=== PATIENT | female | born 1990 | race Caucasian/White ===

== ENCOUNTER → 2020-02-07 | Outpatient (CLI) | payer BC, SELFPAY ==
[2020-02-07 15:35] VITALS: BMI 23.9
[2020-02-07 17:26] LABS: Amphetamine Urine VISTA NEGATIVE (<1000 ng/mL); Barbiturate Urine VISTA NEGATIVE (< 200 ng/mL); Benzodiazepine Urine VISTA NEGATIVE (< 200 ng/mL); Cocaine Urine VISTA NEGATIVE (< 300 ng/mL); Ecstacy Urine VISTA NEGATIVE (< 500 ng/mL); Methadone Urine VISTA NEGATIVE (< 300 ng/mL); PCP Urine VISTA NEGATIVE (< 25 ng/mL); THC Urine VISTA NEGATIVE (< 50 ng/mL); Vista UDS pH Range 6
== END | disposition home or self-care (01) ==
LOC: LABSPEC 16:32
PROVIDERS: PCP Nurse Practitioner Family; Referring Provider Obstetrics & Gynecology; Visit Provider Obstetrics & Gynecology
DX: Z34.90 Encounter for supervision of normal pregnancy, unspecified, unspecified trimester (principal)
CPT/HCPCS: 80307; 87086; 87088

== ENCOUNTER → 2020-05-20 08:49 | Outpatient (CLI) | payer BC, SELFPAY ==
[2020-04-22 14:36] VITALS: BMI 29.7
[2020-05-20 09:24] LABS: Absolute Lymphocyte Count 1.94 X10^3/uL (0.83-4.51); Absolute Neutrophil Count 8.6 X10^3/uL (2.0-7.7); Basophil# 0.05 X10^3/uL; Basophil% 0.4 % (0-1); Eosinophil# 0.05 X10^3/uL; Eosinophils% 0.4 % (0-5); Hematocrit 39.9 % (37-47); Hemoglobin 13.1 g/dL (12.0-15.0); Lymphocyte # 1.94 X10^3/ul (4.0); Lymphocyte % 17.1 % (19-41); Mean Corp Hgb Conc 32.8 g/dL (32-36); Mean Corpuscular Hgb 31.2 pg (27.0-32.0); Mean Platelet Vol. 10.4 fl (6.2-12.0); Monocyte# 0.61 X10^3/uL; Monocyte% 5.4 % (0-10); NRBC Flagged by Analyzer 0 % (0-5); Neutrophil # 8.59 X10^3/uL (2.7-7.7); Neutrophil % 75.8 % (47-70); Platelet Count 209 K/mm3 (150-450); RBC Distribution Width CV 14.8 % (11.6-14.6); RBC Distribution Width SD 51.5 fl (35.1-43.9); White Blood Count 11.3 K/mm3 (4.4-11.0)
[2020-05-20 09:33] LABS: Glucose Challenge Gest 1H 50g 148 mg/dL (70-140)
[2020-05-20 09:55] LABS: Rubella IgG Reactive (Nonreactive)
== END ==
PROVIDERS: PCP Nurse Practitioner Family; Referring Provider Obstetrics & Gynecology; Visit Provider Obstetrics & Gynecology
DX: Z01.84 Encounter for antibody response examination (principal); O09.90 Supervision of high risk pregnancy, unspecified, unspecified trimester; Z3A.00 Weeks of gestation of pregnancy not specified
CPT/HCPCS: 36415; 82950; 85025; 86762

== ENCOUNTER → 2020-06-03 09:23 | Outpatient (CLI) | payer BC, SELFPAY ==
[2020-05-20 09:12] VITALS: BMI 30.8
[2020-06-03 08:57] VITALS: BMI 31.5
[2020-06-03 10:18] LABS: Glucose GTT-Gestation. Fasting 75 mg/dL (<105)
[2020-06-03 11:22] LABS: Glucose GTT-Gestational 1 Hr 172 mg/dL (<190)
[2020-06-03 12:02] LABS: Glucose GTT-Gestational 2 Hr 180 mg/dL (<165)
[2020-06-03 14:01] LABS: Glucose GTT-Gestational 3 Hr 146 L (<145)
== END ==
PROVIDERS: PCP Nurse Practitioner Family; Visit Provider Obstetrics & Gynecology
DX: O99.810 Abnormal glucose complicating pregnancy (principal); Z3A.00 Weeks of gestation of pregnancy not specified
CPT/HCPCS: 36415; 82951; 82952

== ENCOUNTER → 2020-06-17 12:11 | Outpatient (CLI) | payer BC, SELFPAY ==
[2020-06-03 08:57] VITALS: BMI 31.5
[2020-06-17 11:45] VITALS: BMI 31.9
--- NOTE | 2020-06-17 12:15 | US_ITS ---
STUDY: SECOND AND THIRD TRIMESTER OBSTETRICAL ULTRASOUND - LIMITED REASON FOR EXAM: Female, 30 years old GROWTH, DI-DI TWINS. GESTATIONAL DIABETES. Baby A PRIOR ULTRASOUND: None. TECHNIQUE: Transabdominal TECHNICAL QUALITY: Adequate. FINDINGS: The fetus is in a cephalic presentation. There is demonstrated cardiac activity with a heart rate of 129 bpm. There is a normal amniotic fluid volume. The largest amniotic fluid pocket measures 5.6 cm. The amniotic fluid index (SAJAN) is 12.9 cm. The placenta is anterior in location and is not low lying. There are Grade 1 placental changes. The cervix measures 3. cm in length. BIOMETRY: BPD: 7.61 cm: 30 weeks, 3 days HC: 29.93 cm: 33 weeks, 1 days AC: 26.2 cm: 30 weeks, 2 days FL: 6 cm: 31 weeks, 1 days Age by LMP: 32 weeks, 0 days. FORTINO by LMP: 08/12/2020. age by current US: 31 weeks, 6 days. FORTINO by current US: 08/13/2020. Estimated weight: 1638 grams, +/- 246 grams, 11.2 percentile. IMPRESSION: Baby A with a mean gestational age of 31 weeks and 6 days. Electronically Signed: Markel Pickard MD at 9:57 EST , Service support , STUDY: SECOND AND THIRD TRIMESTER OBSTETRICAL ULTRASOUND - TWIN REASON FOR EXAM: Female, 30 years old. LMP: GROWTH, DI-DI TWINS. GESTATIONAL DIABETES. TECHNIQUE: Transabdominal TECHNICAL QUALITY: Adequate. COMPARISON: None. FINDINGS: There are two intrauterine fetuses. The amniotic membrane cannot be visualized. There is a normal amniotic fluid volume within each amniotic sac. The uterine wall is normal. There is a competent closed cervical os. The cervix measures 3.21 cm in length. The bilateral adnexal regions are normal. Fetus A demonstrates male external genitalia. Fetus A demonstrates cardiac activity with a heart rate of 129 bpm. Fetus ?A? is in a cephalic presentation. Fetus B demonstrates female external genitalia. Fetus B demonstrates cardiac activity with a heart rate of 125 bpm. Fetus B is in a cephalic presentation. FETUS B BIOMETRY: BPD: 7.71 cm: 30 weeks, 6 days HC: 28.83 cm: 31 weeks, 5 days AC: 27.43 cm: 31 weeks, 3 days FL: 5.61 cm: 29 weeks, 3 days CI: 76.5% FL/BPD: 72.8% FL/HC: FL/AC: 19.5% HC/AC: 1.05 age by current US: 30 weeks, 6 days. FORTINO by current US: 08/20/2020. Estimated weight: 1658 grams, +/- 249 grams, 12.8 %. Age by LMP: 32 weeks, 0 days. FORTINO by LMP: 08/12/2020. US/OB Limited With Biometrics IMPRESSION: Normal intrauterine with gestational age of 30 weeks and 6 days.. Electronically Signed: Markel Pickard MD at 10:00 EST , Service support ,
== END ==
PROVIDERS: PCP Nurse Practitioner Family; Referring Provider Obstetrics & Gynecology; Visit Provider Obstetrics & Gynecology
DX: O30.049 Twin pregnancy, dichorionic/diamniotic, unspecified trimester (principal); Z3A.00 Weeks of gestation of pregnancy not specified
CPT/HCPCS: 76816

== ENCOUNTER → 2020-06-18 11:47 | Outpatient (CLI) | payer BC, SELFPAY ==
[2020-06-17 16:19] VITALS: BMI 31.6
[2020-06-18 12:38] LABS: T4 Free Direct 0.88 ng/dL (0.76-1.46); Thyroid Stim Hormone (TSH) 2.07 uIU/mL (0.358-3.74)
[2020-06-18 20:01] LABS: Xtra Tube EP Lab EXTRA TUBE
[2020-06-19 08:47] LABS: Thyroid Peroxidase AB < 9 IU/mL (0-34)
== END ==
PROVIDERS: PCP Nurse Practitioner Family; Referring Provider Internal Medicine Endocrinology, Diabetes & Metabolism; Visit Provider Internal Medicine Endocrinology, Diabetes & Metabolism
DX: E04.9 Nontoxic goiter, unspecified (principal)
CPT/HCPCS: 36415; 84439; 84443; 86376

== ENCOUNTER 2020-06-20 16:15 | Outpatient (CLI) | payer BC, SELFPAY ==
[2020-06-17 16:19] VITALS: BMI 31.6
[2020-06-20 16:25] VITALS: BP 111/66; PULSE 79; TEMP 36.7
[2020-06-20 16:34] VITALS: BMI 31.9
--- NOTE | 2020-06-21 11:53 | OB.TRI.PN ---
Progress Notes Date of Service: 06/20/20 Progress Note: Patient presents for NST only visit for twin NST. NSTs reactive for both babies - moderate variability, accels present, decels absent. Discharged to home in stable condition. Will keep next scheduled visit. Multi Select Codes - Urinary/Genital Urinary/Genital CPT Codes: 50965-00 non-stress test Interp
== END 2020-06-20 17:10 | disposition home or self-care (01) ==
LOC: WPOUT 16:21 → WP 16:21
PROVIDERS: PCP Nurse Practitioner Family; Visit Provider Obstetrics & Gynecology
DX: O30.009 Twin pregnancy, unspecified number of placenta and unspecified number of amniotic sacs, unspecified trimester (principal); Z3A.00 Weeks of gestation of pregnancy not specified
CPT/HCPCS: 59025; 59050; 99218; G0378

== ENCOUNTER 2020-06-25 16:00 | Outpatient (RCR) | payer BC, SELFPAY ==
[2020-06-03 08:57] VITALS: BMI 31.5
[2020-06-05 11:18] VITALS: BMI 31.5
== END 2020-06-25 23:59 | disposition home or self-care (01) ==
LOC: DC 16:00
PROVIDERS: PCP Nurse Practitioner Family; Visit Provider Obstetrics & Gynecology
DX: Z71.3 Dietary counseling and surveillance (principal); O24.419 Gestational diabetes mellitus in pregnancy, unspecified control; Z3A.00 Weeks of gestation of pregnancy not specified
CPT/HCPCS: 97802; G0108

== ENCOUNTER 2020-06-26 14:20 | Outpatient (CLI) | payer BC, SELFPAY ==
[2020-06-26 14:50] VITALS: BMI 32.0
[2020-06-26 15:00] VITALS: TEMP 36.7
[2020-06-26 15:01] VITALS: BP 127/68
[2020-06-26 15:02] VITALS: PULSE 101; O2SAT 97
--- NOTE | 2020-06-27 20:05 | OB.TRI.PN_ITS ---
Progress Notes Date of Service: 06/26/20 Progress Note: Patient presents for triage evaluation secondary to twin nonstress test FHT: Moderate variability reactive no decelerations category I tracing [place]: No contractions Assessment and plan: Reactive NSTs, reassuring maternal and status patient discharged to home to follow-up at next scheduled visit. See problem list details for additional plan information. Multi Select Codes - Urinary/Genital Urinary/Genital CPT Codes: 51050-42 non-stress test Interp
== END 2020-06-26 15:55 | disposition home or self-care (01) ==
LOC: WPOUT 14:28 → WP 14:28
PROVIDERS: PCP Nurse Practitioner Family; Referring Provider Obstetrics & Gynecology; Visit Provider Obstetrics & Gynecology
DX: O30.009 Twin pregnancy, unspecified number of placenta and unspecified number of amniotic sacs, unspecified trimester (principal); Z3A.00 Weeks of gestation of pregnancy not specified
CPT/HCPCS: 59025; 59050; 99218; G0378

== ENCOUNTER 2020-07-06 02:05 | Inpatient (IN) | payer BC, SELFPAY ==
[2020-07-03 09:30] VITALS: BMI 32.0
[2020-07-06] VITALS (113 sets, daily range): BP systolic 73–118; BP diastolic 37–78; PULSE 75–103; RESP 16–18; TEMP 36.2–37.6; O2SAT 93–100; BMI 32.2
--- NOTE | 2020-07-06 02:23 | NURSING ---
Pt reports positive covid test on 07/27/2020, done at [facility] per pt report. Dr. Clarice dubois.
[2020-07-06] MEDS: Lactated Ringers 1,000 ML 999 ML IV (02:35)
[2020-07-06 02:45] LABS: Bedside Glucose 71 mg/dL (70-110)
[2020-07-06 02:51] LABS: Absolute Lymphocyte Count 2.38 X10^3/uL (0.83-4.51); Absolute Neutrophil Count 6.6 X10^3/uL (2.0-7.7); Basophil# 0.02 X10^3/uL; Basophil% 0.2 % (0-1); Eosinophil# 0.02 X10^3/uL; Eosinophils% 0.2 % (0-5); Hemoglobin 14.4 g/dL (12.0-15.0); Lymphocyte # 2.38 X10^3/ul (4.0); Lymphocyte % 24.4 % (19-41); Mean Corp Hgb Conc 33.5 g/dL (32-36); Mean Corpuscular Hgb 31.9 pg (27.0-32.0); Mean Corpuscular Volume 95.1 fL (81-99); Mean Platelet Vol. 11.9 fl (6.2-12.0); Monocyte# 0.61 X10^3/uL; Monocyte% 6.3 % (0-10); NRBC Flagged by Analyzer 0.2 % (0-5); Neutrophil # 6.64 X10^3/uL (2.7-7.7); Platelet Count 133 K/mm3 (150-450); RBC Distribution Width CV 14.6 % (11.6-14.6); RBC Distribution Width SD 50.7 fl (35.1-43.9); Red Blood Count 4.52 M/mm3 (4.2-5.4); White Blood Count 9.8 K/mm3 (4.4-11.0)
--- NOTE | 2020-07-06 02:52 | PCM.HPOB.BLA ---
- Problem List (1) premature rupture of membranes (PPROM) with onset of labor after 24 hours of rupture in first trimester, antepartum Status: Acute (2) Lab test positive for detection of COVID-19 virus Status: Acute Comment: advised to continue baby asa and growth scans. Cancelled appt 07/01/20 (3) growth restriction Status: Acute Comment: low growth %; weekly NSTs in WP; repeat growth in 4 weeks (4) Zach's thyroiditis Status: Chronic (5) Gestational diabetes mellitus (GDM) Status: Acute Qualifiers: Comment: Elevated 3h GTT. Fasting and 2h PP BGTs. Endo referral. Dietary consult. Timing of delivery dependent on glycemic control. (6) Abnormal glucose affecting Status: Acute Comment: needs 3gtt (7) History of tetanus, diphtheria, and acellular pertussis booster vaccination (Tdap) Status: Acute Comment: 05/20/20 (8) History of pre-eclampsia Status: Acute Comment: Induced at 38w for increased BPs with low platelets. Obtain ROR from [place]. Start baby ASA. (9) Status: Acute Qualifiers: Comment: Genetic testing performed by [facility] low risk. Needs rubella with 28w labs. (10) Supervision of high risk , antepartum Status: Acute Comment: PRR - rubella needed with 28w labs, FORTINO 08/12/20 Boy, Girl PC: Freddie, Spouse: Thong (11) Hx of thyroiditis Status: Acute Comment: thyroiditis. Presented 4d after last delivery with heart palpitations and anxiety then was on synthroid. TSH most recently returned to normal. (12) Dichorionic diamniotic twin gestation Status: Acute Qualifiers: Comment: Conceived via transfer of 2 embryos. Plan serial growth US q 4 weeks . echo nl. delivery 38 weeks (13) Infertility Status: Chronic Comment: Both pregnancies via IVF - saw Dr. Felton. History and Physical Date of Admission: 07/06/20 Intake Vital Signs 06/17/20 Height 5 ft 3 in 06/17/20 Weight: 180 lb 4 oz 06/17/20 BMI 31.9 06/17/20 BP 124/78 H Intake Visit Reasons: 32 WK OB *TWINS Wrapper Sheeter Required: No Is patient in pain?: No Allergies Sulfa (Sulfonamide Antibiotics) Allergy (Mild, Verified 06/17/20 11:45) blisters Medications docosahexaenoic acid 200 mg capsule mg PO 02/07/20 [History Confirmed 06/17/20] lansoprazole 30 mg capsule,delayed release 30 mg PO DAILY 02/07/20 [History Confirmed 06/17/20] Last Menstral Period: 11/06/19 Zika: Zika virus screening: Negative : No PFSH PFSH Medical History Infertility (Chronic) Surgical History History of mandibular surgery (Resolved) Family History Grandfather Hypertension Social History (Updated 06/17/20 @ 12:[address] 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 Date Name GA/Weeks Outcome Route Bth Weight Gen Labor Lgth Anesthesia Del Locatn Provider FOB 08/02/18 Freddie 38 live - full term 6lbs 13oz Male 6h epidural [facility] (saw edge fuser circular) [facility] Delivery Date: 08/02/18 Induced-Low platelets, minimal protein in urine, thyroiditis Tiffany Anderson HPI 32 WK OB *TWINS: Details: ALEXIS DIAL is a 30 year old at 35 weeks presents with P PROM clear fluid. Upon evaluation both fetuses are breech and she is 4/80/-1. She has had a OB Visit FORTINO Calculator Estimated Delivery Date Method Current WG Current Estimate 08/12/20 Manual 32w 0d Other Estimates 08/12/20 LMP (Certain) 32w 0d # 2 Expected Delivery Route/Plan if vtx/vtx Labor Preferences labor support person: Thong labor intervention preferences: [] pain management options preferred: desires epidural cut cord/dad catch: yes : yes PP control planned: tubal if c section discussed possible routes of delivery and associated risks: [] special requests: Specific Issue/Plans flu vaccine: work flu shot tdap vaccine: given rhogam: na LARC form signed: yes movement and labor precautions reviewed. Problem list reviewed and updated with the most current plan of care details and appropriate orders placed. Relevant counseling for the gestational age provided. Continue routine care and follow up unless otherwise noted in visit notes/problem list details Initial Weight: Not Recorded Date EGA Weight BP Urine Prot Glucose FHR FuHt Pres Dilation Effaced St Visit Note 02/07/20 13w 2d 151 lb 151 lb 110/70 A 163 B A B A B A GP - DANISH from Dr. Felton. Conceived via IVF. Di-Di twins. ROR signed for Dr. Felton and prior delivery info GP - DANISH from Dr. Felton. Conceived via IVF. Di-Di twins A-163/B 168. ROR signed for Dr. Felton and prior delivery info B 03/04/20 17w 0d 154 lb 108/70 Negative Negative A 150 B 145 A B A B A SM- no vb cramping, having intermittent headaches. B 04/01/20 21w 0d 162 lb 4 oz 110/80 Negative Negative A 150 B 150 A Cephalic B Breech A B A GP - no cramping, LOF, VB, DFM. Needs echo due to IVF preg. Needs f/u heart views. B 04/22/20 24w 0d 168 lb 120/72 Negative Negative A 135 B 140 A B A B A SM- no vb lof good fm no regular ctx B 05/20/20 28w 0d 174 lb 108/72 Negative Negative A 142 B 154 A B A B A MH-NO VB, LOF. Good fm. 28 wk labs. Tdap, larc. B 06/03/20 30w 0d 178 lb 122/88 A 145 B 165 A B A B A SM- no vb lof good fm x 2 no reuglar ctx B 06/17/20 32w 0d 180 lb 4 oz 124/78 Negative Negative A 140 B 145 A Cephalic B Breech A B A GP - no LOF, VB, DFM, ctx. Scheduled to see Dr. Mueller today. Reports BGTs have been well controlled with diet. B ACOG Second Trimester Second Trimester: Signs and Symptoms of Labor, Selecting a care provider, Reproductive Life Planning, Care Planning, Depression/Anxiety and Intimate Partner Violence; discussed Tobacco Cessation Diagnostics Diagnostics Diagnostics Gest Glucose Tolerance MG/DL 06/03/20 Glucose 1 Hr 50 gm 148 mg/dL (70-140) H 05/20/20 Rubella IgG Antibody Reactive (Nonreactive) 05/20/20 Hgb 13.1 g/dL (12.0-15.0) 05/20/20 Hct 39.9 % (37-47) 05/20/20 Details: HIV: Urine Culture: Sequential Screen: NIPT Screen: ROS Const Reports system reviewed and no additional complaints, except as documented Card Reports system reviewed and no additional complaints, except as documented Resp Reports system reviewed and no additional complaints, except as documented GI Reports system reviewed and no additional complaints, except as documented, Reports nausea Reports system reviewed and no additional complaints, except as documented Musc Reports system reviewed and no additional complaints, except as documented all other systems reviewed and negative Exam Const General: cooperative, healthy appearing, comfortable [facility] Head: normal to inspection Nose: external nose normal Face and sinus: normal facial exam Neck Neck: normal visual inspection, full ROM, no lymphadenopathy Thyroid: thyroid normal Chest Chest palpation & inspection: normal inspection of the chest Resp Effort & Inspection: normal respiratory effort GI Inspection: normal to inspection Palpation: soft, other (gravid uterus) Other: infant br/br and low growth Other: Cervical Exam: 4/80/-1 Extrem General: pedal edema Results POC Urinalysis 2 Dip (Clinic) Office Urine Glucose Negative Last Edit by Tiffany Anderson on 06/17/20 11:53 Office Urine Protein Negative Last Edit by Tiffany Anderson on 06/17/20 11:53 Assessment & Plan Problems 1. History of tetanus, diphtheria, and acellular pertussis booster vaccination (Tdap) Z92.29 05/20/20 2. History of pre-eclampsia Z87.59 Induced at 38w for increased BPs with low platelets. Obtain ROR from [place]. Start baby ASA. 3. 32 weeks gestation of Z3A.32 Genetic testing performed by [facility] low risk. Needs rubella with 28w labs. 4. Supervision of high risk , antepartum O09.90 PRR - rubella needed with 28w labs, FORTINO 08/12/20 Boy, Girl PC: Freddie, Spouse: Thong 5. Hx of thyroiditis Z86.39 thyroiditis. Presented 4d after last delivery with heart palpitations and anxiety then was on synthroid. TSH most recently returned to normal. 6. Dichorionic diamniotic twin in third trimester O30.043 Conceived via transfer of 2 embryos. Plan serial growth US q 4 weeks . echo nl. delivery 38 weeks 7. Infertility Both pregnancies via IVF - saw Dr. Felton. 8. Gestational diabetes mellitus (GDM) O24.419 Elevated 3h GTT. Fasting and 2h PP BGTs. Endo referral. Dietary consult. Timing of delivery dependent on glycemic control. 30-year-old G2, P1 at 35 weeks presents with P PROM malpresentation breech/breech Recommend proceeding with primary low transverse . Patient requesting sterilization plan bilateral salpingectomy. After discussing the patient's diagnosis and treatment plan options, patient wishes to proceed with surgical management. I have discussed with the patient the risks, benefits, and alternatives of the procedure which include but are not limited to risks of anesthesia, bleeding, infection, possible damage to bowel, bladder, or surrounding vasculature which could lead to additional surgery to evaluate any complications. Patient agrees to procedure and wishes to proceed. Orders Orders: POC Urinalysis 2 Dip (Clinic) Today Coding Level of Care Code OB Routine Diagnoses History of tetanus, diphtheria, and acellular pertussis booster vaccination (Tdap) Z92.29 History of pre-eclampsia Z87.59 32 weeks gestation of Z3A.32 ??Weeks of gestation: 32 weeks Supervision of high risk , antepartum O09.90 Hx of thyroiditis Z86.39 Dichorionic diamniotic twin in third trimester O30.043 ??Trimester: third trimester Infertility Gestational diabetes mellitus (GDM) O24.419
--- NOTE | 2020-07-06 03:00 | PCM.OPRPT ---
Problem List (1) premature rupture of membranes (PPROM) with onset of labor after 24 hours of rupture in first trimester, antepartum Status: Acute (2) Lab test positive for detection of COVID-19 virus Status: Acute Comment: advised to continue baby asa and growth scans. Cancelled appt 07/01/20 (3) growth restriction Status: Acute Comment: low growth %; weekly NSTs in WP; repeat growth in 4 weeks (4) Zach's thyroiditis Status: Chronic (5) Gestational diabetes mellitus (GDM) Status: Acute Qualifiers: Comment: Elevated 3h GTT. Fasting and 2h PP BGTs. Endo referral. Dietary consult. Timing of delivery dependent on glycemic control. (6) Abnormal glucose affecting Status: Acute Comment: needs 3gtt (7) History of tetanus, diphtheria, and acellular pertussis booster vaccination (Tdap) Status: Acute Comment: 05/20/20 (8) History of pre-eclampsia Status: Acute Comment: Induced at 38w for increased BPs with low platelets. Obtain ROR from [place]. Start baby ASA. (9) Status: Acute Qualifiers: Comment: Genetic testing performed by [facility] low risk. Needs rubella with 28w labs. (10) Supervision of high risk , antepartum Status: Acute Comment: PRR - rubella needed with 28w labs, FORTINO 08/12/20 Boy, Girl PC: Freddie, Spouse: Thong (11) Hx of thyroiditis Status: Acute Comment: thyroiditis. Presented 4d after last delivery with heart palpitations and anxiety then was on synthroid. TSH most recently returned to normal. (12) Dichorionic diamniotic twin gestation Status: Acute Qualifiers: Comment: Conceived via transfer of 2 embryos. Plan serial growth US q 4 weeks . echo nl. delivery 38 weeks (13) Infertility Status: Chronic Comment: Both pregnancies via IVF - saw Dr. Felton. Delivery Final FORTINO: 08/12/20 Gestational age: 34 Weeks and 5 Days Type of Anesthesia:: Spinal Special Medications: none Implants Used: none Date of Procedure: 07/06/20 Pre-Operative Diagnosis: malpresentation, sterilization Post-Operative Diagnosis: same Indications for : Desires elective sterilization, Breech Description of Procedure: The patient is a 30-year-old G2, P1 at 35 weeks presented with P PROM with breech/breech twin presentation therefore we will be proceeding with a primary . Spinal anesthesia was placed without difficulty. Hamilton catheter was placed. The patient was placed in the dorsal supine position with leftward tilt. Patient was prepped and draped in the normal sterile fashion. Pfannenstiel skin incision was made with the scalpel and carried through to the underlying layer of fascia with the scalpel. Fascia was nicked in the midline and the incision extended laterally. The rectus bellies were dissected off superiorly and inferiorly with out complication both sharply and bluntly. The peritoneum was entered digitally. The incision was stretched and a low transverse uterine incision was made with the scalpel. The infant's buttocks was delivered atraumatically followed by the anterior and posterior shoulders without complication the rest of the infant delivered. The cord was clamped and cut and the infant was handed off to awaiting nurse. Second sac was ruptured and infant buttocks was delivered followed by the right and left arm sweeping anteriorly and the head flexing and delivering without complication. Cord was clamped and cut and the handed off to waiting nurse. The placenta was delivered spontaneously immediately following and was noted to be intact and have a three-vessel cord. The uterus was exteriorized cleared of all clots and debris, and the incision was closed in a single layer closure using #1 Monocryl. The ovaries and fallopian tubes were noted to be within normal limits. Patient had desired sterilization and was counseled preoperatively regarding irreversibility and permanency. Therefore bilateral fallopian tubes were elevated and transected across using a LigaSure device starting proximally to distally without complication the entire fallopian tubes were removed. The uterus was returned to the maternal abdomen and gutters were cleared of all clots and debris. The peritoneum was closed with 3-0 Monocryl in a running fashion. Gloves were changed prior to fascial closure. Fascia was closed with 0 PDS in a running fashion. Subcutaneous tissue was copiously irrigated and the skin was closed with 3-0 Monocryl in a subcuticular fashion. Mepilex dressing was applied without complication. Patient was taken to recovery in stable condition. Amniotic Membrane Rupture Type: Spontaneous Amniotic Fluid Description: Clear Placenta Disposition: [facility] Drain: Hamilton to straight drain Esitmated Blood Loss (ml): 900 Gender: Male Antibiotic Given: Ancef 2 grams IV x1, Zithromax 500 mg/5 mL X1 Pt instructed on risks of surgery: Bleeding, Anesthesia Risks, Infection, Need for Future C-Sections, Permanency, Injury to surrounding structure(s) including bowel and bladder Complications: None - Admit VTE Documentation VTE Present on Admission: No VTE Mechan Device Prophylaxis: SCD's Baby B - Information Amniotic Membrane Rupture Type: Artificial Presentation: Complete Breech - Operative Information B gender: Female Multi Select Codes - Urinary/Genital Urinary/Genital CPT Codes: 92181 C/S+TL - bilateral salpingectomy, 15399 Delivery global pkg - twins
[2020-07-06] MEDS: Betamethasone/Betamethasone 30 MG/5 ML Vial 12 MG IM (03:01)
[2020-07-06] MEDS: Acetaminophen 500 MG Tablet PO (03:01)
[2020-07-06] MEDS: Sodium Citrate/Citric Acid 30 ML UDC PO (03:02)
--- NOTE | 2020-07-06 03:12 | DCINST_ITS ---
Discharge Diet: No Restrictions Discharge Activity: May Not Drive - for 2 weeks, May not drive while taking narcotic pain medications., May Shower, May Take a Tub Bath - in 7 days May resume sexual activity in: 4-6 weeks Lifting Restrictions: 20 pounds Additional Activity Instructions:: Nothing in the vagina for 4-6 weeks. You may return to work/school in 6 weeks. Call your doctor if your incision/area has: Continuous Slow Oozing, Sudden Increased Bleeding, Increased Pain/ Swelling, Increased Redness, Foul Smelling Discharge Call your doctor if you observe: Fever of 101 or Higher, Using more than one pad per hour - for 2 hours Suture Line Care: Avoid Pulling/Pushing, Avoid Pinching/Bending Cleanse incision/area with: Keep Dressing Clean & Dry Additional Instructions: If you experience any of the following, contact your healthcare provider. * Bleeding that soaks a pad every hour for 2 hours * Fever 100.4 or higher * Unrelieved incision or abdominal pain * Swelling, redness, discharge or bleeding from your incision or episiotomy site * Your incision begins to separate * Problems urinating (including inability to urinate or burning while urinating). * Visual changes * Severe headache * Flu-like symptoms * Pain or redness in one of both of your breasts * Pain, warmth, tenderness or swelling in your legs, especially the calf area * Frequent nausea and vomiting * Symptoms of depression or anxiety If you experience any of the following, call 911 or go to the nearest Emergency Room. * Chest pain * Problems breathing * Seizure activity * Partial or complete paralysis of a body part, slurred speech, weakness or drooping of the face, or a sudden inability to walk or hold your balance Allergies/Adverse Reactions: Allergies Sulfa (Sulfonamide Antibiotics) Allergy (Mild, Verified 07/06/20 02:49) blisters Medications to take at Discharge lansoprazole 30 mg capsule,delayed release 30 mg PO DAILY 02/07/20 Aspirin [Aspirin, Baby] 81 mg PO DAILY 06/20/20 Prenatabs FA 1 tab PO DAILY 06/20/20 Lansoprazole [Prevacid] 15 mg PO BID 07/06/20 Naproxen [Naprosyn] 250 - 500 mg PO Q8H PRN PRN #30 tab 07/06/20 Oxycodone HCl/Acetaminophen [Percocet 5-325] 1 - 2 tab PO Q6H PRN PRN 7 Days #15 tab 07/06/20 The following prescriptions were given: Naproxen [Naprosyn] 250 - 500 mg PO Q8H PRN PRN #30 tab PRN Reason: MILD PAIN Transmission Status: [facility] to [facility] Oxycodone HCl/Acetaminophen [Percocet 5-325] 1 - 2 tab PO Q6H PRN PRN 7 Days #15 tab PRN Reason: Pain Transmission Status: [facility] to [facility] Follow-Up: Call to make an appointment with your doctor for an incision check in 1-2 weeks. You will also need a 6 week post- follow up appointment. Test results from this visit will be discussed in further detail at your follow- up appointment, if applicable. Please Follow Up With: Lina Oneil MD - Call to make an appointment for an incision check in 1-2 [phone] When: You will need a post- check in 6 weeks. Primary Care Physician: Shahnaz Fernandez INSURANCE RATER, INSURANCE RATER-C [Primary Care Provider] -
[2020-07-06 03:16] LABS: ROM Internal Control Test YES-OK TO RESULT pt. (Internal QC); ROM Patient Test POSITIVE (Negative)
[2020-07-06] MEDS: Cefazolin 2 GM in 0.9% Normal Saline 100 ML IV (03:25)
--- NOTE | 2020-07-06 03:30 | FALL_PTH ---
PATIENT: ALEXIS DIAL LOC: [facility] U#:[id number] AGE/SX: 30/F ROOM: WP021 RE07/06/[address]: Dr. Lnia Oneil MD : 1990 BED: 1 DIS: 07/09/2020 SPEC #: [id number] RECD: 07/06/20 04:58 STATUS: RITO RECarlos Enrique #: [id number] LARISSA: 07/06/20 03:[address]: Lina Oneil DEPT: SURGICAL PATHOLOGY RECD BY: Coty Tucker ENTERED: 07/08/20 09:53 SP TYPE: FALL TUBES OTHR DR: hSahnaz Fernandez, ELECTRICAL SUPERVISOR-C Tissues: Fallopian tube Procedures: Surgery Specimen Level II HEADER OPERATION: Tubal ligation PRE-OP DIAGNOSIS: Sterilization TISSUE SUBMITTED: Fallopian tubes, suture in right MICROSCOPIC DIAGNOSIS Right and left fallopian tubes, bilateral salpingectomies: Two complete cross-sections of fallopian tubes with no pathologic change. AM:arron 07/09/2020 MICROSCOPIC DESCRIPTION Slides are reviewed. GROSS DESCRIPTION Received in fixative is one container labeled with the patient's name and designated bilateral fallopian tubes, suture in right tube. The specimen consists of bilateral fallopian tubes including fimbrial ends. The right fallopian tube measures 6.5 cm in length and 0.5 cm in diameter and the left fallopian tube measures 6 cm in length and 0.7 cm in diameter. Sections reveal unremarkable cut surfaces. Medical Transcriber sections are submitted in two cassettes as follows: 1 - right fallopian tube, 2 - left fallopian tube. / KRISTIN:arron 07/08/20 TC:4 CPT: 34071 x2
[2020-07-06 03:55] LABS: Group B Strep DNA By PCR Negative (Negative); Internal Control PASS; Probe Check PASS; Specimen Processing Control PASS
--- NOTE | 2020-07-06 04:20 | NURSING ---
Dr. Christopher in room, BP to start recovery 79/39. Pt reports she is lightheaded. Dr. Christopher started 1000ml IV fluid bolus at this time. RN remains at bedside to monitor BP and pt.
[2020-07-06] MEDS: Oxytocin 30 units/NS 500 ml 30 UNITS/500 ML IV.SOLN 167 UNITS IV (04:30)
[2020-07-06] MEDS: Methylergonovine 0.2 MG/ML Ampul IM (04:44)
[2020-07-06 04:58] LABS: Pathology Specimen OB SEE PATHOLOGY REPORT
[2020-07-06 05:41] LABS: Bedside Glucose 140 mg/dL (70-110)
--- NOTE | 2020-07-06 06:54 | NURSING ---
Breast pump given to patient, education provided.
[2020-07-06] MEDS: 0.9% Saline Lock 10 ML Syringe IV ×3 (07:43→20:07)
[2020-07-06] MEDS: Ondansetron 4 MG/2 ML Vial IV (07:44)
[2020-07-06] MEDS: Lactated Ringers 1,000 ML 100 ML IV (08:18)
--- NOTE | 2020-07-06 08:59 | NURSING ---
Peripads weighed with [place] RN's assistance. EBL 895 from peripads and clots on peripads.
[2020-07-06] MEDS: Ketorolac 30 MG/ML Syringe IV ×3 (09:02→20:07)
[2020-07-06] MEDS: Acetaminophen 500 MG Tablet 1000 MG PO ×3 (10:22→22:02)
[2020-07-06] MEDS: Pantoprazole Sodium 20 MG Tablet PO ×2 (10:24→22:02)
[2020-07-06] MEDS: proCHLORPERazine 10 MG/2 ML Vial IV (12:10)
[2020-07-06 12:25] LABS: Bedside Glucose 116 mg/dL (70-110)
[2020-07-06] MEDS: Enoxaparin 40 MG/0.4 ML Syringe SC (15:40)
[2020-07-06 16:31] LABS: Hemoglobin 8.4 g/dL (12.0-15.0)
--- NOTE | 2020-07-06 19:48 | NURSING ---
191 pt up to BSC - pt unable to void at this time- pt passed a 68 cc clot- charli made aware.
[2020-07-06] MEDS: Prenatal Vits Tablet 1 TABLET PO (22:02)
[2020-07-07] MEDS: 0.9% Saline Lock 10 ML Syringe IV (02:58)
[2020-07-07] MEDS: Ketorolac 30 MG/ML Syringe IV (02:58)
[2020-07-07 04:06] VITALS: BP 103/57; PULSE 87; PULSE 92; RESP 16; TEMP 37.3; O2SAT 97
[2020-07-07] MEDS: Acetaminophen 500 MG Tablet 1000 MG PO ×4 (04:07→22:05)
[2020-07-07 05:36] LABS: Bedside Glucose 91 mg/dL (70-110)
[2020-07-07 05:45] LABS: Hematocrit 24.6 % (37-47); Hemoglobin 8.1 g/dL (12.0-15.0); Mean Corp Hgb Conc 32.9 g/dL (32-36); Mean Corpuscular Hgb 31.8 pg (27.0-32.0); Mean Corpuscular Volume 96.5 fL (81-99); Mean Platelet Vol. 10.6 fl (6.2-12.0); Platelet Count 187 K/mm3 (150-450); RBC Distribution Width CV 14.7 % (11.6-14.6); Red Blood Count 2.55 M/mm3 (4.2-5.4)
[2020-07-07] MEDS: Naproxen 250 MG Tablet 500 MG PO ×2 (08:30→17:18)
[2020-07-07 08:32] VITALS: BP 110/58; PULSE 33; PULSE 96; O2SAT 79; O2SAT 98
[2020-07-07 08:35] VITALS: BP 110/58; PULSE 98; RESP 18; TEMP 37.1; O2SAT 98
--- NOTE | 2020-07-07 08:50 | NURSING ---
Assisted mother pumping. Pumping at this time.
[2020-07-07] MEDS: Enoxaparin 40 MG/0.4 ML Syringe SC (10:58)
[2020-07-07] MEDS: Senna/Docusate Sodium 1 Tablet PO (10:58)
[2020-07-07] MEDS: Pantoprazole Sodium 20 MG Tablet PO ×2 (10:58→22:04)
--- NOTE | 2020-07-07 11:30 | PN.OBGYN_ITS ---
Patient Problems: Active and Suspected Problems (Last Reviewed 06/17/20 @ 17:[address] Guanakito Mueller MD) premature rupture of membranes (PPROM) with onset of labor after 24 hours of rupture in first trimester, antepartum (Acute) Lab test positive for detection of COVID-19 virus (Acute) advised to continue baby asa and growth scans. Cancelled appt 07/01/20 growth restriction (Acute) low growth %; weekly NSTs in WP; repeat growth in 4 weeks Gestational diabetes mellitus (GDM) (Acute) Elevated 3h GTT. Fasting and 2h PP BGTs. Endo referral. Dietary consult. Timing of delivery dependent on glycemic control. Abnormal glucose affecting (Acute) needs 3gtt History of tetanus, diphtheria, and acellular pertussis booster vaccination (Tdap) (Acute) 05/20/20 History of pre-eclampsia (Acute) Induced at 38w for increased BPs with low platelets. Obtain ROR from [place]. Start baby ASA. (Acute) Genetic testing performed by [facility] low risk. Needs rubella with 28w labs. Supervision of high risk , antepartum (Acute) PRR - rubella needed with 28w labs, FORTINO 08/12/20 Boy, Girl PC: Freddie, Spouse: Thong Hx of thyroiditis (Acute) thyroiditis. Presented 4d after last delivery with heart palpitations and anxiety then was on synthroid. TSH most recently returned to normal. Dichorionic diamniotic twin gestation (Acute) Conceived via transfer of 2 embryos. Plan serial growth US q 4 weeks . echo nl. delivery 38 weeks Subjective: Patient doing well without complaints. Tolerating PO. Ambulating and voiding without difficulty. feeding well. Denies chest pain, shortness of breath, calf pain/swelling, fevers, chills, lightheadedness. - Physical Exam Vitals/I&O's: Vital Signs Temp Pulse Resp BP Pulse Ox 98.7 F 98 18 110/58 L 98 07/07/20 08:35 07/07/20 08:35 07/07/20 08:35 07/07/20 08:35 07/07/20 08:35 Oxygen Delivery Method Room Air Weight: 181 lb 14.102 oz Body Mass Index (BMI) 32.2 Intake and Output for Last 24 Hours 07/05/20 07/06/20 07/07/20 23:59 23:59 23:59 Intake Total 3819.28 / 3819.28 Output Total 900 / 900 300 / 300 Balance 2919.28 / 2919.28 -300 / -300 General: Alert, Oriented x3 Laboratory Results 07/06/20 12:07: POC Glucose 116 H 07/06/20 16:15: Hgb 8.4 L 07/07/20 05:19: POC Glucose 91 07/07/20 05:25: WBC 19.0 H, RBC 2.55 L, Hgb 8.1 L, Hct 24.6 L, MCV 96.5, MCH 31.8, MCHC 32.9, RDW Std Deviation 51.0 H, RDW Coeff of Rosa 14.7 H, Plt Count 187, MPV 10.6 Current Medications Acetaminophen (Acetaminophen 500 Mg Tablet) 1,000 mg PO Q6H [facility] Last Admin: 07/07/20 10:58 Dose: 1,000 mg Documented by: Bisacodyl (Bisacodyl 10 Mg Suppository) 10 mg RECTAL UD PRN PRN Reason: If no BM Enoxaparin Sodium (Enoxaparin 40 Mg/0.4 Ml Syringe) 40 mg SC DAILY [facility] Last Admin: 07/07/20 10:58 Dose: 40 mg Documented by: Hydrocortisone (Hydrocortisone 2.5% Crm) 1 applic TOPICAL TID PRN PRN; Protocol PRN Reason: Discomfort Methylergonovine Maleate (Methylergonovine 0.2 Mg/Ml Ampul) 0.2 mg IM X1 PRN PRN Reason: Uterine Atony Last Admin: 07/06/20 04:44 Dose: 0.2 mg Documented by: Naloxone HCl (Naloxone 0.4 Mg/Ml Syringe) 0.02 mg IV Q1M PRN PRN Reason: RR <10 and pt unresponsive Naproxen (Naproxen 250 Mg Tablet) 500 mg PO Q8H [facility] Last Admin: 07/07/20 08:30 Dose: 500 mg Documented by: Ondansetron HCl (Ondansetron 4 Mg/2 Ml Vial) 4 mg IV Q4H PRN PRN PRN Reason: Nausea Last Admin: 07/06/20 07:44 Dose: 4 mg Documented by: Oxycodone HCl (Oxycodone 5 Mg Tablet) 5 - 10 mg PO Q4H PRN PRN PRN Reason: Pain Score 4-10 Pantoprazole Sodium (Pantoprazole Sodium 20 Mg Tablet) 20 mg PO BID [facility] Last Admin: 07/07/20 10:58 Dose: 20 mg Documented by: Multivit/Folic Acid/Iron ( Vits Tablet) 1 tablet PO QHS [facility] Last Admin: 07/06/20 22:02 Dose: 1 tablet Documented by: Prochlorperazine Edisylate (Prochlorperazine 10 Mg/2 Ml Vial) 10 mg IV Q6H PRN PRN PRN Reason: NAUSEA Last Admin: 07/06/20 12:10 Dose: 10 mg Documented by: Senna/Docusate Sodium (Senna/Docusate Sodium 1 Tablet) 1 - 2 tablet PO DAILY [facility] Last Admin: 07/07/20 10:58 Dose: 2 tablet Documented by: Simethicone (Simethicone 80 Mg Tablet) 80 mg PO PCHS PRN PRN Reason: Indigestion/stomach pain Sodium Chloride (0.9% Saline Lock 10 Ml Syringe) 5 - 15 ml IV UD PRN PRN Reason: SALINE FLUSH Last Admin: 07/07/20 02:58 Dose: 10 ml Documented by: Medical Necessity - Tobacco Use Smoking Status: Never smoker Assessment/Plan All Active Problems (Last Reviewed 06/17/20 @ 17:[address] Guanakito Mueller MD) premature rupture of membranes (PPROM) with onset of labor after 24 hours of rupture in first trimester, antepartum (Acute) Lab test positive for detection of COVID-19 virus (Acute) growth restriction (Acute) Gestational diabetes mellitus (GDM) (Acute) Abnormal glucose affecting (Acute) History of tetanus, diphtheria, and acellular pertussis booster vaccination (Tdap) (Acute) History of pre-eclampsia (Acute) (Acute) Supervision of high risk , antepartum (Acute) Hx of thyroiditis (Acute) Dichorionic diamniotic twin gestation (Acute) Exposure to Toxoplasma species (Resolved) History of RPR test (Resolved) s/p LTCS PPD # 1 1. routine post care 2. breast feeding- support given 3. rh positive 4. rubella immune
[2020-07-07 14:51] VITALS: BP 96/64; PULSE 80; RESP 15; TEMP 36.7
[2020-07-07 19:10] VITALS: BP 114/62; PULSE 88
[2020-07-07 19:16] VITALS: BP 114/62; PULSE 84; RESP 16; TEMP 37.3
[2020-07-07] MEDS: Prenatal Vits Tablet 1 TABLET PO (22:04)
[2020-07-08] VITALS (9 sets, daily range): BP systolic 101–123; BP diastolic 55–67; PULSE 69–94; RESP 16–18; TEMP 36.5–36.8; O2SAT 98–100
[2020-07-08] MEDS: Naproxen 250 MG Tablet 500 MG PO ×3 (01:46→16:29)
[2020-07-08] MEDS: Acetaminophen 500 MG Tablet 1000 MG PO ×3 (04:08→18:12)
[2020-07-08] MEDS: Enoxaparin 40 MG/0.4 ML Syringe SC (09:33)
[2020-07-08] MEDS: Senna/Docusate Sodium 1 Tablet PO (09:33)
[2020-07-08] MEDS: Pantoprazole Sodium 20 MG Tablet PO ×2 (09:33→22:32)
--- NOTE | 2020-07-08 15:42 | PN.OBGYN_ITS ---
Patient Problems: Active and Suspected Problems (Last Reviewed 06/17/20 @ 17:[address] Guanakito Mueller MD) premature rupture of membranes (PPROM) with onset of labor after 24 hours of rupture in first trimester, antepartum (Acute) Lab test positive for detection of COVID-19 virus (Acute) advised to continue baby asa and growth scans. Cancelled appt 07/01/20 growth restriction (Acute) low growth %; weekly NSTs in WP; repeat growth in 4 weeks Gestational diabetes mellitus (GDM) (Acute) Elevated 3h GTT. Fasting and 2h PP BGTs. Endo referral. Dietary consult. Timing of delivery dependent on glycemic control. Abnormal glucose affecting (Acute) needs 3gtt History of tetanus, diphtheria, and acellular pertussis booster vaccination (Tdap) (Acute) 05/20/20 History of pre-eclampsia (Acute) Induced at 38w for increased BPs with low platelets. Obtain ROR from [place]. Start baby ASA. (Acute) Genetic testing performed by [facility] low risk. Needs rubella with 28w labs. Supervision of high risk , antepartum (Acute) PRR - rubella needed with 28w labs, FORTINO 08/12/20 Boy, Girl PC: Freddie, Spouse: Thong Hx of thyroiditis (Acute) thyroiditis. Presented 4d after last delivery with heart palpitations and anxiety then was on synthroid. TSH most recently returned to normal. Dichorionic diamniotic twin gestation (Acute) Conceived via transfer of 2 embryos. Plan serial growth US q 4 weeks . echo nl. delivery 38 weeks Subjective: Patient doing well without complaints. Tolerating PO. Ambulating and voiding without difficulty. feeding well. Denies chest pain, shortness of breath, calf pain/swelling, fevers, chills, lightheadedness. - Physical Exam Vitals/I&O's: Vital Signs Temp Pulse Resp BP Pulse Ox 97.9 F 82 16 123/55 H 98 07/08/20 13:44 07/08/20 13:46 07/08/20 13:44 07/08/20 13:46 07/08/20 13:44 Oxygen Delivery Method Room Air Weight: 181 lb 14.102 oz Body Mass Index (BMI) 32.2 Intake and Output for Last 24 Hours 07/06/20 07/07/20 07/08/20 23:59 23:59 23:59 Intake Total 3819.28 / 3819.28 Output Total 900 / 900 300 / 300 Balance 2919.28 / 2919.28 -300 / -300 General: Alert, Oriented x3 Current Medications Acetaminophen (Acetaminophen 500 Mg Tablet) 1,000 mg PO Q6H [facility] Last Admin: 07/08/20 12:16 Dose: 1,000 mg Documented by: Bisacodyl (Bisacodyl 10 Mg Suppository) 10 mg RECTAL UD PRN PRN Reason: If no BM Enoxaparin Sodium (Enoxaparin 40 Mg/0.4 Ml Syringe) 40 mg SC DAILY [facility] Last Admin: 07/08/20 09:33 Dose: 40 mg Documented by: Hydrocortisone (Hydrocortisone 2.5% Crm) 1 applic TOPICAL TID PRN PRN; Protocol PRN Reason: Discomfort Methylergonovine Maleate (Methylergonovine 0.2 Mg/Ml Ampul) 0.2 mg IM X1 PRN PRN Reason: Uterine Atony Last Admin: 07/06/20 04:44 Dose: 0.2 mg Documented by: Naloxone HCl (Naloxone 0.4 Mg/Ml Syringe) 0.02 mg IV Q1M PRN PRN Reason: RR <10 and pt unresponsive Naproxen (Naproxen 250 Mg Tablet) 500 mg PO Q8H [facility] Last Admin: 07/08/20 09:33 Dose: 500 mg Documented by: Ondansetron HCl (Ondansetron 4 Mg/2 Ml Vial) 4 mg IV Q4H PRN PRN PRN Reason: Nausea Last Admin: 07/06/20 07:44 Dose: 4 mg Documented by: Oxycodone HCl (Oxycodone 5 Mg Tablet) 5 - 10 mg PO Q4H PRN PRN PRN Reason: Pain Score 4-10 Pantoprazole Sodium (Pantoprazole Sodium 20 Mg Tablet) 20 mg PO BID [facility] Last Admin: 07/08/20 09:33 Dose: 20 mg Documented by: Multivit/Folic Acid/Iron ( Vits Tablet) 1 tablet PO QHS [facility] Last Admin: 07/07/20 22:04 Dose: 1 tablet Documented by: Prochlorperazine Edisylate (Prochlorperazine 10 Mg/2 Ml Vial) 10 mg IV Q6H PRN PRN PRN Reason: NAUSEA Last Admin: 07/06/20 12:10 Dose: 10 mg Documented by: Senna/Docusate Sodium (Senna/Docusate Sodium 1 Tablet) 1 - 2 tablet PO DAILY [facility] Last Admin: 07/08/20 09:33 Dose: 2 tablet Documented by: Simethicone (Simethicone 80 Mg Tablet) 80 mg PO PCHS PRN PRN Reason: Indigestion/stomach pain Sodium Chloride (0.9% Saline Lock 10 Ml Syringe) 5 - 15 ml IV UD PRN PRN Reason: SALINE FLUSH Last Admin: 07/07/20 02:58 Dose: 10 ml Documented by: Medical Necessity - Tobacco Use Smoking Status: Never smoker Assessment/Plan All Active Problems (Last Reviewed 06/17/20 @ 17:[address] Guanakito Mueller MD) premature rupture of membranes (PPROM) with onset of labor after 24 hours of rupture in first trimester, antepartum (Acute) Lab test positive for detection of COVID-19 virus (Acute) growth restriction (Acute) Gestational diabetes mellitus (GDM) (Acute) Abnormal glucose affecting (Acute) History of tetanus, diphtheria, and acellular pertussis booster vaccination (Tdap) (Acute) History of pre-eclampsia (Acute) (Acute) Supervision of high risk , antepartum (Acute) Hx of thyroiditis (Acute) Dichorionic diamniotic twin gestation (Acute) Exposure to Toxoplasma species (Resolved) History of RPR test (Resolved) s/p LTCS PPD # 2 1. routine post care 2. breast feeding- support given 3. rh positive 4. rubella immune
[2020-07-08] MEDS: Prenatal Vits Tablet 1 TABLET PO (22:32)
[2020-07-09] MEDS: Naproxen 250 MG Tablet 500 MG PO ×2 (00:20→09:57)
[2020-07-09] MEDS: Acetaminophen 500 MG Tablet 1000 MG PO ×2 (00:20→06:26)
[2020-07-09 03:44] VITALS: BP 112/63; PULSE 77
[2020-07-09 03:45] VITALS: BP 112/63; PULSE 77; RESP 16; TEMP 36.6; O2SAT 99
--- NOTE | 2020-07-09 07:46 | PCM.PN.OB ---
Patient Problems: Active and Suspected Problems (Last Reviewed 06/17/20 @ 17:[address] Guanakito Mueller MD) premature rupture of membranes (PPROM) with onset of labor after 24 hours of rupture in first trimester, antepartum (Acute) Lab test positive for detection of COVID-19 virus (Acute) advised to continue baby asa and growth scans. Cancelled appt 07/01/20 growth restriction (Acute) low growth %; weekly NSTs in WP; repeat growth in 4 weeks Gestational diabetes mellitus (GDM) (Acute) Elevated 3h GTT. Fasting and 2h PP BGTs. Endo referral. Dietary consult. Timing of delivery dependent on glycemic control. Abnormal glucose affecting (Acute) needs 3gtt History of tetanus, diphtheria, and acellular pertussis booster vaccination (Tdap) (Acute) 05/20/20 History of pre-eclampsia (Acute) Induced at 38w for increased BPs with low platelets. Obtain ROR from [place]. Start baby ASA. (Acute) Genetic testing performed by [facility] low risk. Needs rubella with 28w labs. Supervision of high risk , antepartum (Acute) PRR - rubella needed with 28w labs, FORTINO 08/12/20 Boy, Girl PC: Freddie, Spouse: Thong Hx of thyroiditis (Acute) thyroiditis. Presented 4d after last delivery with heart palpitations and anxiety then was on synthroid. TSH most recently returned to normal. Dichorionic diamniotic twin gestation (Acute) Conceived via transfer of 2 embryos. Plan serial growth US q 4 weeks . echo nl. delivery 38 weeks Subjective: Patient doing well without complaints. Tolerating PO. Ambulating and voiding without difficulty. Twin delivery-babies in SCN but doing well. Have latched but mostly pumping and feeding. Denies chest pain, shortness of breath, calf pain/swelling, fevers, chills, lightheadedness. - Physical Exam Vitals/I&O's: Vital Signs Temp Pulse Resp BP Pulse Ox 97.8 F 77 16 112/63 99 07/09/20 03:45 07/09/20 03:45 07/09/20 03:45 07/09/20 03:45 07/09/20 03:45 Oxygen Delivery Method Room Air Weight: 181 lb 14.102 oz Body Mass Index (BMI) 32.2 Intake and Output for Last 24 Hours 07/07/20 07/08/20 07/09/20 23:59 23:59 23:59 Output Total 300 / 300 Balance -300 / -300 General: Alert, Oriented x3, Cooperative Abdomen: Soft, Non-Distended, - - FF below U. Dressing dry and intact. Appropriately tender Current Medications Acetaminophen (Acetaminophen 500 Mg Tablet) 1,000 mg PO Q6H [facility] Last Admin: 07/09/20 06:26 Dose: 1,000 mg Documented by: Bisacodyl (Bisacodyl 10 Mg Suppository) 10 mg RECTAL UD PRN PRN Reason: If no BM Enoxaparin Sodium (Enoxaparin 40 Mg/0.4 Ml Syringe) 40 mg SC DAILY [facility] Last Admin: 07/08/20 09:33 Dose: 40 mg Documented by: Hydrocortisone (Hydrocortisone 2.5% Crm) 1 applic TOPICAL TID PRN PRN; Protocol PRN Reason: Discomfort Methylergonovine Maleate (Methylergonovine 0.2 Mg/Ml Ampul) 0.2 mg IM X1 PRN PRN Reason: Uterine Atony Last Admin: 07/06/20 04:44 Dose: 0.2 mg Documented by: Naloxone HCl (Naloxone 0.4 Mg/Ml Syringe) 0.02 mg IV Q1M PRN PRN Reason: RR <10 and pt unresponsive Naproxen (Naproxen 250 Mg Tablet) 500 mg PO Q8H [facility] Last Admin: 07/09/20 00:20 Dose: 500 mg Documented by: Ondansetron HCl (Ondansetron 4 Mg/2 Ml Vial) 4 mg IV Q4H PRN PRN PRN Reason: Nausea Last Admin: 07/06/20 07:44 Dose: 4 mg Documented by: Oxycodone HCl (Oxycodone 5 Mg Tablet) 5 - 10 mg PO Q4H PRN PRN PRN Reason: Pain Score 4-10 Pantoprazole Sodium (Pantoprazole Sodium 20 Mg Tablet) 20 mg PO BID [facility] Last Admin: 07/08/20 22:32 Dose: 20 mg Documented by: Multivit/Folic Acid/Iron ( Vits Tablet) 1 tablet PO QHS [facility] Last Admin: 07/08/20 22:32 Dose: 1 tablet Documented by: Prochlorperazine Edisylate (Prochlorperazine 10 Mg/2 Ml Vial) 10 mg IV Q6H PRN PRN PRN Reason: NAUSEA Last Admin: 07/06/20 12:10 Dose: 10 mg Documented by: Senna/Docusate Sodium (Senna/Docusate Sodium 1 Tablet) 1 - 2 tablet PO DAILY [facility] Last Admin: 07/08/20 09:33 Dose: 2 tablet Documented by: Simethicone (Simethicone 80 Mg Tablet) 80 mg PO [facility]S PRN PRN Reason: Indigestion/stomach pain Sodium Chloride (0.9% Saline Lock 10 Ml Syringe) 5 - 15 ml IV UD PRN PRN Reason: SALINE FLUSH Last Admin: 07/07/20 02:58 Dose: 10 ml Documented by: Medical Necessity - Tobacco Use Smoking Status: Never smoker Assessment/Plan All Active Problems (Last Reviewed 06/17/20 @ 17:[address] Guanakito Mueller MD) premature rupture of membranes (PPROM) with onset of labor after 24 hours of rupture in first trimester, antepartum (Acute) Lab test positive for detection of COVID-19 virus (Acute) growth restriction (Acute) Gestational diabetes mellitus (GDM) (Acute) Abnormal glucose affecting (Acute) History of tetanus, diphtheria, and acellular pertussis booster vaccination (Tdap) (Acute) History of pre-eclampsia (Acute) (Acute) Supervision of high risk , antepartum (Acute) Hx of thyroiditis (Acute) Dichorionic diamniotic twin gestation (Acute) Exposure to Toxoplasma species (Resolved) History of RPR test (Resolved) s/p LTCS PPD # 3 1. routine post care 2. breast feeding- support given 3. rh positive 4. rubella immune 5. Hotel status today
--- NOTE | 2020-07-09 07:51 | PCM.DC.SUM ---
Discharge Date and Diagnosis - Problem List Patient Problems: Active and Suspected Problems (Last Reviewed 06/17/20 @ 17:[address] Guanakito Mueller MD) premature rupture of membranes (PPROM) with onset of labor after 24 hours of rupture in first trimester, antepartum (Acute) Lab test positive for detection of COVID-19 virus (Acute) advised to continue baby asa and growth scans. Cancelled appt 07/01/20 growth restriction (Acute) low growth %; weekly NSTs in WP; repeat growth in 4 weeks Gestational diabetes mellitus (GDM) (Acute) Elevated 3h GTT. Fasting and 2h PP BGTs. Endo referral. Dietary consult. Timing of delivery dependent on glycemic control. Abnormal glucose affecting (Acute) needs 3gtt History of tetanus, diphtheria, and acellular pertussis booster vaccination (Tdap) (Acute) 05/20/20 History of pre-eclampsia (Acute) Induced at 38w for increased BPs with low platelets. Obtain ROR from [facility]. Start baby ASA. (Acute) Genetic testing performed by [facility] howell risk. Needs rubella with 28w labs. Supervision of high risk , antepartum (Acute) PRR - rubella needed with 28w labs, FORTINO 08/12/20 Boy, Girl PC: Freddie, Spouse: Thong Hx of thyroiditis (Acute) thyroiditis. Presented 4d after last delivery with heart palpitations and anxiety then was on synthroid. TSH most recently returned to normal. Dichorionic diamniotic twin gestation (Acute) Conceived via transfer of 2 embryos. Plan serial growth US q 4 weeks . echo nl. delivery 38 weeks Date of Admission: 07/06/20 - Primary Discharge Diagnosis Acute Problems: Active Problems (Last Reviewed 06/17/20 @ 17:[address] Guanakito Mueller MD) premature rupture of membranes (PPROM) with onset of labor after 24 hours of rupture in first trimester, antepartum (Acute) Lab test positive for detection of COVID-19 virus (Acute) advised to continue baby asa and growth scans. Cancelled appt 07/01/20 growth restriction (Acute) low growth %; weekly NSTs in WP; repeat growth in 4 weeks Gestational diabetes mellitus (GDM) (Acute) Elevated 3h GTT. Fasting and 2h PP BGTs. Endo referral. Dietary consult. Timing of delivery dependent on glycemic control. Abnormal glucose affecting (Acute) needs 3gtt History of tetanus, diphtheria, and acellular pertussis booster vaccination (Tdap) (Acute) 05/20/20 History of pre-eclampsia (Acute) Induced at 38w for increased BPs with low platelets. Obtain ROR from [facility]. Start baby ASA. (Acute) Genetic testing performed by [facility] low risk. Needs rubella with 28w labs. Supervision of high risk , antepartum (Acute) PRR - rubella needed with 28w labs, FORTINO 08/12/20 Boy, Girl PC: Freddie, Spouse: Thong Hx of thyroiditis (Acute) thyroiditis. Presented 4d after last delivery with heart palpitations and anxiety then was on synthroid. TSH most recently returned to normal. Dichorionic diamniotic twin gestation (Acute) Conceived via transfer of 2 embryos. Plan serial growth US q 4 weeks . echo nl. delivery 38 weeks - Secondary Discharge Diagnosis Chronic Problems: Chronic Problems (Last Reviewed 06/17/20 @ 17:[address] Guanakito Mueller MD) Zach's thyroiditis (Chronic) Infertility (Chronic) Both pregnancies via IVF - saw Dr. Felton. Hospital Course and Treatment Consultations 07/06/20 02:28 Consult: Anesthesia Routine Comment: Reason For Exam: Labor Operations: - - PLTCS breech/breech twins Summary of Care Provided: The patient is a 30 year old F underwent section with routine recovery, return of normal bowel and bladder function. Ambulating, voiding and tolerating PO. Stable for discharge home POD #3. Patient Problems: Active and Suspected Problems (Last Reviewed 06/17/20 @ 17:[address] Guanakito Mueller MD) premature rupture of membranes (PPROM) with onset of labor after 24 hours of rupture in first trimester, antepartum (Acute) Lab test positive for detection of COVID-19 virus (Acute) advised to continue baby asa and growth scans. Cancelled appt 07/01/20 growth restriction (Acute) low growth %; weekly NSTs in WP; repeat growth in 4 weeks Gestational diabetes mellitus (GDM) (Acute) Elevated 3h GTT. Fasting and 2h PP BGTs. Endo referral. Dietary consult. Timing of delivery dependent on glycemic control. Abnormal glucose affecting (Acute) needs 3gtt History of tetanus, diphtheria, and acellular pertussis booster vaccination (Tdap) (Acute) 05/20/20 History of pre-eclampsia (Acute) Induced at 38w for increased BPs with low platelets. Obtain ROR from [facility]. Start baby ASA. (Acute) Genetic testing performed by [facility] low risk. Needs rubella with 28w labs. Supervision of high risk , antepartum (Acute) PRR - rubella needed with 28w labs, FORTINO 08/12/20 Boy, Girl PC: Freddie, Spouse: Thong Hx of thyroiditis (Acute) thyroiditis. Presented 4d after last delivery with heart palpitations and anxiety then was on synthroid. TSH most recently returned to normal. Dichorionic diamniotic twin gestation (Acute) Conceived via transfer of 2 embryos. Plan serial growth US q 4 weeks . echo nl. delivery 38 weeks - Physical Exam Vitals/I&O's: Vital Signs Temp Pulse Resp BP Pulse Ox 97.8 F 77 16 112/63 99 07/09/20 03:45 07/09/20 03:45 07/09/20 03:45 07/09/20 03:45 07/09/20 03:45 Oxygen Delivery Method Room Air Weight: 181 lb 14.102 oz Body Mass Index (BMI) 32.2 Intake and Output for Last 24 Hours 07/07/20 07/08/20 07/09/20 23:59 23:59 23:59 Output Total 300 / 300 Balance -300 / -300 Current Medications Acetaminophen (Acetaminophen 500 Mg Tablet) 1,000 mg PO Q6H GERMAINE Last Admin: 07/09/20 06:26 Dose: 1,000 mg Documented by: Bisacodyl (Bisacodyl 10 Mg Suppository) 10 mg RECTAL UD PRN PRN Reason: If no BM Enoxaparin Sodium (Enoxaparin 40 Mg/0.4 Ml Syringe) 40 mg SC DAILY GERMAINE Last Admin: 07/08/20 09:33 Dose: 40 mg Documented by: Hydrocortisone (Hydrocortisone 2.5% Crm) 1 applic TOPICAL TID PRN PRN; Protocol PRN Reason: Discomfort Methylergonovine Maleate (Methylergonovine 0.2 Mg/Ml Ampul) 0.2 mg IM X1 PRN PRN Reason: Uterine Atony Last Admin: 07/06/20 04:44 Dose: 0.2 mg Documented by: Naloxone HCl (Naloxone 0.4 Mg/Ml Syringe) 0.02 mg IV Q1M PRN PRN Reason: RR <10 and pt unresponsive Naproxen (Naproxen 250 Mg Tablet) 500 mg PO Q8H [facility] Last Admin: 07/09/20 00:20 Dose: 500 mg Documented by: Ondansetron HCl (Ondansetron 4 Mg/2 Ml Vial) 4 mg IV Q4H PRN PRN PRN Reason: Nausea Last Admin: 07/06/20 07:44 Dose: 4 mg Documented by: Oxycodone HCl (Oxycodone 5 Mg Tablet) 5 - 10 mg PO Q4H PRN PRN PRN Reason: Pain Score 4-10 Pantoprazole Sodium (Pantoprazole Sodium 20 Mg Tablet) 20 mg PO BID [facility] Last Admin: 07/08/20 22:32 Dose: 20 mg Documented by: Multivit/Folic Acid/Iron ( Vits Tablet) 1 tablet PO QHS [facility] Last Admin: 07/08/20 22:32 Dose: 1 tablet Documented by: Prochlorperazine Edisylate (Prochlorperazine 10 Mg/2 Ml Vial) 10 mg IV Q6H PRN PRN PRN Reason: NAUSEA Last Admin: 07/06/20 12:10 Dose: 10 mg Documented by: Senna/Docusate Sodium (Senna/Docusate Sodium 1 Tablet) 1 - 2 tablet PO DAILY [facility] Last Admin: 07/08/20 09:33 Dose: 2 tablet Documented by: Simethicone (Simethicone 80 Mg Tablet) 80 mg PO PCHS PRN PRN Reason: Indigestion/stomach pain Sodium Chloride (0.9% Saline Lock 10 Ml Syringe) 5 - 15 ml IV UD PRN PRN Reason: SALINE FLUSH Last Admin: 07/07/20 02:58 Dose: 10 ml Documented by: Discharge Diet: No Restrictions Discharge Activity: May Not Drive - for 2 weeks, May not drive while taking narcotic pain medications., May Shower, May Take a Tub Bath - in 7 days May resume sexual activity in: 4-6 weeks Additional Activity Instructions:: Nothing in the vagina for 4-6 weeks. You may return to work/school in 6 weeks. Call your doctor if your incision/area has: Continuous Slow Oozing, Sudden Increased Bleeding, Increased Pain/ Swelling, Increased Redness, Foul Smelling Discharge Call your doctor if you observe: Fever of 101 or Higher, Using more than one pad per hour - for 2 hours Suture Line Care: Avoid Pulling/Pushing, Avoid Pinching/Bending Cleanse incision/area with: Keep Dressing Clean & Dry Home Medications: Medications to take at Discharge lansoprazole 30 mg capsule,delayed release 30 mg PO DAILY 02/07/20 Aspirin [Aspirin, Baby] 81 mg PO DAILY 06/20/20 Prenatabs FA 1 tab PO DAILY 06/20/20 Lansoprazole [Prevacid] 15 mg PO BID 07/06/20 Naproxen [Naprosyn] 250 - 500 mg PO Q8H PRN PRN #30 tab 07/06/20 Oxycodone HCl/Acetaminophen [Percocet 5-325] 1 - 2 tab PO Q6H PRN PRN 7 Days #15 tab 07/06/20 Following Prescriptions Were Given to Patient: Naproxen [Naprosyn] 250 - 500 mg PO Q8H PRN PRN #30 tab PRN Reason: MILD PAIN Transmission Status: Received by [facility] Oxycodone HCl/Acetaminophen [Percocet 5-325] 1 - 2 tab PO Q6H PRN PRN 7 Days #15 tab PRN Reason: Pain Transmission Status: Received by [facility] Primary Care Physician: Shahnaz Fernandez NP, [employer] ATTENDANT-C [Primary Care Provider] - Please Follow Up With: Lina Oneil MD - Call to make an appointment for an incision check in 1-2 [phone] When: You will need a post- check in 6 weeks. Medical Necessity - Tobacco Use Smoking Status: Never smoker Meaningful Use Info Meaningful Use Diagnoses (Choose all that apply): None applicable
[2020-07-09 09:51] VITALS: BP 108/69; PULSE 81; RESP 16; TEMP 36.9; O2SAT 98
[2020-07-09 09:53] VITALS: BP 108/69; PULSE 75; PULSE 79; O2SAT 98
[2020-07-09] MEDS: Pantoprazole Sodium 20 MG Tablet PO (09:57)
[2020-07-09] MEDS: Enoxaparin 40 MG/0.4 ML Syringe SC (09:57)
[2020-07-09] MEDS: Senna/Docusate Sodium 1 Tablet PO (09:57)
== END 2020-07-09 10:20 | disposition home or self-care (01) | DRG 783 ==
PROVIDERS: Admitting Provider Obstetrics & Gynecology; PCP Nurse Practitioner Family; Visit Provider Obstetrics & Gynecology
DX: O32.1XX1 Maternal care for breech presentation, fetus 1 (principal); O60.14X1 Preterm labor third trimester with preterm delivery third trimester, fetus 1; O60.14X2 Preterm labor third trimester with preterm delivery third trimester, fetus 2; O32.1XX2 Maternal care for breech presentation, fetus 2; O30.043 Twin pregnancy, dichorionic/diamniotic, third trimester; Z3A.34 34 weeks gestation of pregnancy; Z37.2 Twins, both liveborn; Z30.2 Encounter for sterilization; O24.429 Gestational diabetes mellitus in childbirth, unspecified control; E06.3 Autoimmune thyroiditis; O99.284 Endocrine, nutritional and metabolic diseases complicating childbirth; O42.113 Preterm premature rupture of membranes, onset of labor more than 24 hours following rupture, third trimester
CPT/HCPCS: 59025; 59050; 76815; 82962; 84112; 85018; 85025; 85027; 86850; 86900; 86901; 87081; 87653; 88302; 99218; J7120; A4216; G0378; J0702; J2405

== ENCOUNTER → 2020-07-10 08:54 | Outpatient (CLI) | payer BC, SELFPAY ==
[2020-07-06 02:46] VITALS: BMI 32.2
[2020-07-10 11:24] LABS: T4 Free Direct 1.07 ng/dL (0.76-1.46); Thyroid Stim Hormone (TSH) 2.61 uIU/mL (0.358-3.74)
== END ==
PROVIDERS: PCP Nurse Practitioner Family; Referring Provider Obstetrics & Gynecology; Visit Provider Obstetrics & Gynecology
DX: Z86.39 Personal history of other endocrine, nutritional and metabolic disease (principal)
CPT/HCPCS: 36415; 84439; 84443

== ENCOUNTER → 2020-08-29 09:41 | Outpatient (CLI) | payer BC, SELFPAY ==
[2020-08-20 09:34] VITALS: BMI 26.5
[2020-08-29 10:05] LABS: Absolute Lymphocyte Count 2.17 X10^3/uL (0.83-4.51); Absolute Neutrophil Count 3.4 X10^3/uL (2.0-7.7); Basophil# 0.04 X10^3/uL; Basophil% 0.6 % (0-1); Eosinophils% 4.7 % (0-5); Hematocrit 43.4 % (37-47); Hemoglobin 13.6 g/dL (12.0-15.0); Lymphocyte # 2.17 X10^3/ul (4.0); Lymphocyte % 33.9 % (19-41); Mean Corp Hgb Conc 31.3 g/dL (32-36); Mean Corpuscular Hgb 28.9 pg (27.0-32.0); Mean Corpuscular Volume 92.3 fL (81-99); Mean Platelet Vol. 9.2 fl (6.2-12.0); Monocyte# 0.49 X10^3/uL; Monocyte% 7.6 % (0-10); NRBC Flagged by Analyzer 0 % (0-5); Platelet Count 296 K/mm3 (150-450); RBC Distribution Width CV 11.9 % (11.6-14.6); RBC Distribution Width SD 40.6 fl (35.1-43.9); White Blood Count 6.4 K/mm3 (4.4-11.0)
[2020-08-29 10:31] LABS: T4 Free Direct 0.93 ng/dL (0.76-1.46); Thyroid Stim Hormone (TSH) 3.01 uIU/mL (0.358-3.74)
[2020-08-29 13:18] LABS: Glucose 2 Hour Postprandial 98 mg/dL (<140)
== END ==
PROVIDERS: PCP Nurse Practitioner Family; Referring Provider Obstetrics & Gynecology; Visit Provider Obstetrics & Gynecology
DX: O24.419 Gestational diabetes mellitus in pregnancy, unspecified control (principal); Z86.39 Personal history of other endocrine, nutritional and metabolic disease; Z3A.00 Weeks of gestation of pregnancy not specified
CPT/HCPCS: 36415; 82950; 84439; 84443; 85025

== ENCOUNTER → 2021-03-12 10:07 | Outpatient (CLI) | payer BC, SELFPAY ==
[2021-03-12 10:45] LABS: Thyroid Stim Hormone (TSH) 1.32 uIU/mL (0.358-3.74)
== END ==
PROVIDERS: PCP Nurse Practitioner Family; Referring Provider Obstetrics & Gynecology; Visit Provider Obstetrics & Gynecology
DX: N92.0 Excessive and frequent menstruation with regular cycle (principal)
CPT/HCPCS: 36415; 84443

== ENCOUNTER → 2021-03-18 13:46 | Outpatient (CLI) | payer BC, SELFPAY ==
--- NOTE | 2021-03-18 13:49 | US_ITS ---
STUDY: ULTRASOUND OF THE FEMALE PELVIS - COMPLETE REASON FOR EXAM: Female, 30 years old. AUB LMP: 02/27/2021 TECHNIQUE: Transabdominal and Transvaginal TECHNICAL QUALITY: Adequate. COMPARISON: None. FINDINGS: The uterus is anteverted and is in a midline position. The uterus measures 7.8 x 6.2 x 3.9 cm. Normal uterine cervix. The endometrium measures 13.2 mm in thickness, and is fluid distended. There is no demonstrated endometrial mass. There is no demonstrated myometrial mass. I.U.D. - The patient does not have an I.U.D. The right ovary is visualized. The right ovary measures 2.4 x 2.2 x 1.7 cm. There are multiple follicles of the right ovary without a dominant cyst. There is no visualized right adnexal mass or complex lesion. There is normal arterial and normal venous vascularity. The left ovary is visualized. The left ovary measures 3.1 x 1.6 x 1.4 cm. There are multiple follicles of the left ovary without a dominant cyst. There is no visualized left adnexal mass or complex lesion. There is normal arterial and normal venous vascularity. There is no fluid in the cul-de-sac. Visualized urinary bladder is unremarkable. US/Pelvic (Non ) IMPRESSION: 1. No adnexal or uterine masses. 2. Mild thickening of the endometrial complex with fluid distention could suggest endometrial hyperplasia. Electronically Signed: Montrell Wilkes MD (Brooks) at 15:39 EDT , Service support ,
--- NOTE | 2021-03-18 13:49 | US_ITS ---
STUDY: ULTRASOUND OF THE FEMALE PELVIS - COMPLETE REASON FOR EXAM: Female, 30 years old. AUB LMP: 02/27/2021 TECHNIQUE: Transabdominal and Transvaginal TECHNICAL QUALITY: Adequate. COMPARISON: None. FINDINGS: The uterus is anteverted and is in a midline position. The uterus measures 7.8 x 6.2 x 3.9 cm. Normal uterine cervix. The endometrium measures 13.2 mm in thickness, and is fluid distended. There is no demonstrated endometrial mass. There is no demonstrated myometrial mass. I.U.D. - The patient does not have an I.U.D. The right ovary is visualized. The right ovary measures 2.4 x 2.2 x 1.7 cm. There are multiple follicles of the right ovary without a dominant cyst. There is no visualized right adnexal mass or complex lesion. There is normal arterial and normal venous vascularity. The left ovary is visualized. The left ovary measures 3.1 x 1.6 x 1.4 cm. There are multiple follicles of the left ovary without a dominant cyst. There is no visualized left adnexal mass or complex lesion. There is normal arterial and normal venous vascularity. There is no fluid in the cul-de-sac. Visualized urinary bladder is unremarkable. US/Transvaginal Non- IMPRESSION: 1. No adnexal or uterine masses. 2. Mild thickening of the endometrial complex with fluid distention could suggest endometrial hyperplasia. Electronically Signed: Montrell Wilkes MD ([place]oks) at 15:39 EDT , Service support ,
== END ==
PROVIDERS: PCP Nurse Practitioner Family; Referring Provider Obstetrics & Gynecology; Visit Provider Obstetrics & Gynecology
DX: N92.0 Excessive and frequent menstruation with regular cycle (principal)
CPT/HCPCS: 76830; 76856

== ENCOUNTER → 2021-05-05 11:42 | Outpatient (CLI) | payer BC, SELFPAY ==
[2021-05-05 12:00] LABS: Absolute Lymphocyte Count 2.48 X10^3/uL (0.83-4.51); Absolute Neutrophil Count 4.4 X10^3/uL (2.0-7.7); Basophil# 0.03 X10^3/uL; Basophil% 0.4 % (0-1); Eosinophil# 0.04 X10^3/uL; Eosinophils% 0.5 % (0-5); Hemoglobin 13.5 g/dL (12.0-15.0); Lymphocyte # 2.48 X10^3/ul (0.83-4.51); Lymphocyte % 33.1 % (19-41); Mean Corp Hgb Conc 32.9 g/dL (32-36); Mean Corpuscular Hgb 28.8 pg (27.0-32.0); Mean Corpuscular Volume 87.6 fL (81-99); Mean Platelet Vol. 9.3 fl (6.2-12.0); Monocyte# 0.53 X10^3/uL; Monocyte% 7.1 % (0-10); NRBC Flagged by Analyzer 0 % (0-5); Neutrophil # 4.39 X10^3/uL (2.7-7.7); Neutrophil % 58.6 % (47-70); Platelet Count 340 K/mm3 (150-450); RBC Distribution Width CV 12.9 % (11.6-14.6); RBC Distribution Width SD 41.4 fl (35.1-43.9); Red Blood Count 4.68 M/mm3 (4.2-5.4); White Blood Count 7.5 K/mm3 (4.4-11.0)
== END ==
PROVIDERS: PCP Nurse Practitioner Family; Referring Provider Nurse Practitioner Women's Health; Visit Provider Nurse Practitioner Women's Health
DX: N93.9 Abnormal uterine and vaginal bleeding, unspecified (principal)
CPT/HCPCS: 36415; 85025

== ENCOUNTER → 2021-12-16 | Outpatient (CLI) | payer BC, SELFPAY ==
[2021-12-18 15:03] LABS: HPV APTIMA, High Risk Negative (Negative)
== END | disposition home or self-care (01) ==
LOC: LABSPEC 10:12
PROVIDERS: PCP Nurse Practitioner Family; Visit Provider Nurse Practitioner Women's Health
DX: Z01.419 Encounter for gynecological examination (general) (routine) without abnormal findings (principal); N76.0 Acute vaginitis
CPT/HCPCS: 87070; 87205; 87624; 88175; G0145

== ENCOUNTER → 2023-02-22 | Outpatient (CLI) | payer BC, SELFPAY ==
--- NOTE | 2023-02-22 15:49 | US_ITS ---
EXAM: US PELVIS TRANSABDOMINAL AND TRANSVAGINAL, COMPLETE CLINICAL INDICATION: bleeding TECHNIQUE: Transabdominal and transvaginal pelvic ultrasound was performed with grayscale and color Doppler imaging. Transvaginal imaging was used for better evaluation of the endometrium and adnexa. COMPARISON: No relevant prior studies available. FINDINGS: UTERUS/CERVIX: Uterus 7.9 cm x 5.6 cm x 1.5 cm. Retroflexed. There is no uterine mass. Normal 6 mm endometrial stripe thickness. Trace fluid in the fundal endometrial cavity. RIGHT OVARY: Only seen on transvaginal exam. 3.2 cm x 1.3 cm x 2.2 cm with multiple small peripheral follicles. Non-enlarged, normal echogenicity. Blood flow is present in the right ovary. LEFT OVARY: Unremarkable. Multiple small peripheral follicles. 3.2 cm x 2.2 cm x 2 cm.. Non-enlarged, normal echogenicity. Blood flow is present in the left ovary. FREE FLUID: None. BLADDER: Unremarkable as visualized. Calculated volume 550 cc. Wall is normal thickness for degree of distention. US/Pelvic (Non ) IMPRESSION: Trace fluid in the endometrial cavity. Numerous small ovarian follicles, no dominant follicle. Otherwise unremarkable exam. Electronically Signed: Jennifer Humphreys MD at 3:06 EDT ,
== END | disposition home or self-care (01) ==
LOC: US 15:48
PROVIDERS: PCP Nurse Practitioner Family; Referring Provider Nurse Practitioner Women's Health; Visit Provider Nurse Practitioner Women's Health
DX: N93.9 Abnormal uterine and vaginal bleeding, unspecified (principal)
CPT/HCPCS: 76830; 76856

== ENCOUNTER → 2023-05-11 | Outpatient (CLI) | payer BC, SELFPAY ==
[2023-05-11 14:06] LABS: Absolute Lymphocyte Count 2.67 X10^3/uL (0.83-4.51); Absolute Neutrophil Count 3.7 X10^3/uL (2.0-7.7); Basophil# 0.05 X10^3/uL; Basophil% 0.7 % (0-1); Eosinophil# 0.05 X10^3/uL; Eosinophils% 0.7 % (0-5); Hematocrit 43.2 % (37-47); Hemoglobin 13.8 g/dL (12.0-15.0); Lymphocyte # 2.67 X10^3/ul (0.83-4.51); Lymphocyte % 38.7 % (19-41); Mean Corp Hgb Conc 31.9 g/dL (32-36); Mean Corpuscular Hgb 29.1 pg (27.0-32.0); Mean Corpuscular Volume 90.9 fL (81-99); Monocyte# 0.45 X10^3/uL; Monocyte% 6.5 % (0-10); NRBC Flagged by Analyzer 0 % (0-5); Neutrophil # 3.67 X10^3/uL (2.7-7.7); Neutrophil % 53.3 % (47-70); Platelet Count 321 K/mm3 (150-450); RBC Distribution Width CV 12.9 % (11.6-14.6); RBC Distribution Width SD 42.6 fl (35.1-43.9); Red Blood Count 4.75 M/mm3 (4.2-5.4); White Blood Count 6.9 K/mm3 (4.4-11.0)
[2023-05-11 15:25] LABS: Thyroid Stim Hormone (TSH) 1.42 uIU/mL (0.358-3.74)
== END | disposition home or self-care (01) ==
PROVIDERS: PCP Nurse Practitioner Family; Referring Provider Obstetrics & Gynecology; Visit Provider Obstetrics & Gynecology
DX: N93.9 Abnormal uterine and vaginal bleeding, unspecified (principal)
CPT/HCPCS: 36415; 84443; 85025

== ENCOUNTER 2023-05-18 18:22 | Emergency (ER) | payer BC, SELFPAY ==
[2023-05-18] VITALS (7 sets, daily range): BP systolic 99–123; BP diastolic 47–76; PULSE 76–93; RESP 10–20; TEMP 37.1; O2SAT 85–100; BMI 22.4
--- NOTE | 2023-05-18 18:28 | EDS_ITS ---
HPI History of Present Illness Chief Complaint: Lower Extremity Injury Detail of Chief Complaint: Injury right lower extremity/ankle Informant: patient Occured/Mechanism Mechanism/Context: Yes fall Comment: Patient was carrying her son down steps. She slipped on the ice. She presents by ambulance because she was unable to bear weight. Onset/Context/Timing Context: Sudden Onset Timing: Continuous Quality of Pain: Dull and Aching Location: Right distal leg Current Severity: Mild Maximum Severity: Severe Worsened by: Any type of movement Relieved by: Nothing Associated Symptoms Associated Symptoms: Positive for Loss of Funtion Narrative Narrative: Patient is a 33-year-old healthy woman on control pills only. She has allergy to sulfa. She presents by squad after injuring her right leg. She declined IV medication by squad. She is now requesting pain medicine. She denies paresthesia, anesthesia or motor weakness. She denies head injury. She denies nausea or vomiting. She denies neck pain. Prior similar symptoms: No Recent Illness/Hospitalization: No PFSH PFSH Medical History Gestational diabetes mellitus (GDM) Hx of thyroiditis Infertility Home Medications drospirenone 3 mg-estetrol 14.2 mg (28) tablet ([facility] See Rx Instructions PO .COMPLEX #28 tabs 05/07/23 [Rx Last Taken Unknown] hydrocodone-acetaminophen 5-325mg 5mg-325mg 1 tab PO Q6H PRN PRN Pain 5 days #20 TABLETS 05/18/23 [Rx Last Taken Unknown] Allergy/AdvReac Type Severity Reaction Status Date / Time Sulfa (Sulfonamide Allergy Mild blisters Verified 05/18/23 18:30 Antibiotics) Family History Grandfather Hypertension Surgical History History of bilateral salpingectomy History of mandibular surgery Social History Smoking Status: Never smoker alcohol intake: never substance use type: does not use caffeine: Yes what type of physical activity do you participate in: none seatbelt use: always do you feel safe at home: Yes additional social history: [employer] 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 Cardiovascular Cardiovascular: Denies chest pain or palpitations Respiratory/Chest Respiratory/Chest: Denies dyspnea or dyspnea on exertion Gastrointestinal Gastrointestinal: Denies nausea or vomiting Neurologic Neurologic: Denies paresthesias or weakness Hematologic/Lymphatic Hematologic/Lymphatic: Denies easy bleeding or easy bruising EXAM Physical Exam Const Vital Signs: 05/18/23 18:23 05/18/23 19:11 05/18/23 19:16 Temperature 98.8 F Temperature Source Oral Pulse Rate 86 89 Pulse Rate [1 (Initial Baseline)] 88 Pulse Rate [2] 93 Pulse Rate [3] 88 Pulse Rate [4] 80 Pulse Rate [5] 83 Respiratory Rate 16 14 Respiratory Rate [1 (Initial Baseline)] 13 Respiratory Rate [2] 10 L Respiratory Rate [3] 12 Respiratory Rate [4] 13 Respiratory Rate [5] 20 H Blood Pressure 123/55 H 119/63 Blood Pressure [1 (Initial Baseline)] 117/76 Blood Pressure [2] 102/47 L Blood Pressure [5] 99/56 L Blood Pressure Mean 77 Pulse Ox 100 100 Oxygen Delivery Method Room Air Room Air Oxygen Delivery Method [1 (Initial Baseline)] Nasal Cannula Oxygen Delivery Method [2] Nasal Cannula Oxygen Delivery Method [3] Nasal Cannula Oxygen Delivery Method [4] Non-Rebreather Oxygen Delivery Method [5] Nasal Cannula Oxygen Flow Rate (L/min) Oxygen Flow Rate (L/min) [1 (Initial Baseline)] 2 Oxygen Flow Rate (L/min) [2] 2 Oxygen Flow Rate (L/min) [3] 2 Oxygen Flow Rate (L/min) [4] 15 Oxygen Flow Rate (L/min) [5] 99 05/18/23 19:30 Temperature Temperature Source Pulse Rate Pulse Rate [1 (Initial Baseline)] Pulse Rate [2] Pulse Rate [3] Pulse Rate [4] Pulse Rate [5] Respiratory Rate Respiratory Rate [1 (Initial Baseline)] Respiratory Rate [2] Respiratory Rate [3] Respiratory Rate [4] Respiratory Rate [5] Blood Pressure Blood Pressure [1 (Initial Baseline)] Blood Pressure [2] Blood Pressure [5] Blood Pressure Mean Pulse Ox Oxygen Delivery Method Nasal Cannula Oxygen Delivery Method [1 (Initial Baseline)] Oxygen Delivery Method [2] Oxygen Delivery Method [3] Oxygen Delivery Method [4] Oxygen Delivery Method [5] Oxygen Flow Rate (L/min) 2 Oxygen Flow Rate (L/min) [1 (Initial Baseline)] Oxygen Flow Rate (L/min) [2] Oxygen Flow Rate (L/min) [3] Oxygen Flow Rate (L/min) [4] Oxygen Flow Rate (L/min) [5] Positive well nourished and well developed Constitutional Narrative: Patient appears uncomfortable. General Appearance ED: well developed HEENT Reports moist mucous membranes normocephalic and atraumatic Eyes PERRL Eyes Narrative: Extraocular muscles are intact. Sclera is anicteric. Neck full ROM and supple Chest Wall inspection of chest normal Resp normal respiratory effort, no retractions and clear to auscultation bilaterally Cardio regular rate, regular rhythm, S1 normal heart sound, S2 normal heart sound and no murmurs Extremity Negative for normal to inspection Extremity Narrative: There is significant swelling approximately 6 to 10 cm above the lateral and medial malleolus. DP pulse is palpable. There is no pain the patient of the toes or foot. There is no pain the patient over the patella or joint line of the right knee. Neuro oriented x3, CN's II-XII intact bilaterally, moves all extremities and no sensory deficits noted Sensorium / Orientation: alert Psych mental status grossly normal Skin Lesions: no lesions Rashes: no rashes MDM MDM MDM Narrative Medical decision making narrative: X-ray of the right tib-fib was ordered. Suspect patient has a fracture. Patient was medicated with 2 mg of morphine. She requested Dr. Shadi dinh who is on-call for orthopedic surgeon. 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 Radiography Chest X-Ray - ED: 2 View and Read by ED Physician (Patient has a spiral is displaced fracture distal right tibia and a fracture distal right fibula. This was independent reviewed interpreted by me at 1853.) Diagnostic Testing: Clinical Impression(s) from Imaging Studies Tibia/Fibula X-Ray 05/18/23 18:41 IMPRESSION: Tibial fracture as above, recommend orthopedic consult. Electronically Signed: Martinez Garcia DO at 19:06 EST Reading Location ID and State: [facility] / [place] , Service support , Treatment and Re-Evaluation Narrative: Patient was informed of fracture. Plan is sedation to apply posterior and sugar-tong/stirrup splint for immobilization. Case was discussed with Dr. Shadi dinh. He agrees with plan. Patient to follow- up as an outpatient for ORIF. Procedures Lower Extremity Splints Lower Extremity Splint: Plaster, Stirrup and - (Posterior short leg) Splint Fabrication: Fabricated Location: Right Procedural Sedation 1 (Initial Baseline): Consent Signed: Yes Any Problems With Anesthesia: No You/Your family experience fever (hyperthermia) w/anesthesia: No Sedation medication: Propofol Dose: 160 Route: IV Total Moderate Sedation Units: 12 Maliampati Score: Class I ASA Classification: I Comment:: Patient became unresponsive after third 40 mg aliquot was administered. Her O2 sat began to fall. She fell as low as 88%. She was placed on increased oxygen. With stimulation she began to breathe and pulse ox improved. Posterior short leg splint was initially applied followed by sugar-tong/stirrup splint. These were fabricated by me. Plaster was used. Discharge Plan Triage Chief Complaint: Lower Extremity Injury ED Provider: Jhonatan Gil Dx/Rx/DC Orders Clinical Impression: Traumatic closed fracture of distal tibia with fibula with minimal displacement Instructions: ED Leg Fracture Prescriptions: New hydrocodone-acetaminophen [hydrocodone-acetaminophen] 5-325 mg tablet 1 tab PO Q6H PRN PRN (Reason: Pain) 5 Days Qty: 20 0RF No Action Next[facility] 3 mg- 14.2 mg (28) tablet See Rx Instructions PO .COMPLEX Qty: 28 12RF Rx Instructions: take 1-PINK tablet once daily for 24 days/days 1-24 of cycle; take 1-WHITE tablet once daily for 4 days/days 25-28 of cycle. PO Primary Care Provider: Shahnaz Fernandez NP Referrals: Quinn Washington DO [Med Staff - Active Staff] - As soon as possible Shahnaz Fernandez NP, SAFETY DIRECTOR-C [Primary Care Provider] - Activity Restrictions/Additional Instructions: 1. Elevate your right leg. My definition of elevation is your toes above your nose. 2. Apply ice 20 minutes at a time every hour while awake 3. Must keep splint absolutely clean and dry 4. Take pain medicine as needed for pain. Recommend [id number] for the first 24 to 48 hours. Disposition Disposition: Home, Self Care
[2023-05-18] MEDS: Ondansetron 4 MG/2 ML Vial IV (18:34)
[2023-05-18] MEDS: Morphine 2 MG/ML Syringe IM (18:34)
--- NOTE | 2023-05-18 18:41 | RAD_ITS ---
STUDY: X-RAY - RIGHT TIBIA AND FIBULA REASON FOR EXAM: Female, 33 years old. Injury/Pain TECHNIQUE: 4 view(s) of the tibia and fibula were obtained. COMPARISON: None. FINDINGS: There is an oblique comminuted and displaced fracture of the distal tibial diaphysis. Normal visualized fibula. The soft tissue structures are unremarkable. RAD/Tibia & Fibula 2 Views IMPRESSION: Tibial fracture as above, recommend orthopedic consult. Electronically Signed: Martinez Garcia DO at 19:06 EST ,
[2023-05-18] MEDS: Morphine 2 MG/ML Syringe IV (19:36)
[2023-05-18] MEDS: Propofol 200 MG/20 ML Vial IV BOLUS (19:41)
== END 2023-05-18 20:27 | disposition home or self-care (01) ==
LOC: ED 20:26
PROVIDERS: Emergency Provider Emergency Medicine; PCP Nurse Practitioner Family; Visit Provider Emergency Medicine
DX: S82.301A Unspecified fracture of lower end of right tibia, initial encounter for closed fracture (principal); Y93.89 Activity, other specified; Z79.3 Long term (current) use of hormonal contraceptives
CPT/HCPCS: 29515; 73590; 96372; 96374; 96375; 99152; 99285; J7030; A4216; J2405

== ENCOUNTER → 2023-05-19 | Outpatient (CLI) | payer BC, SELFPAY ==
--- NOTE | 2023-05-19 14:26 | CT_ITS ---
CT RIGHT LOWER EXTREMITY WITH 3-D IMAGING CLINICAL INDICATION: DISPLACED COMMINUTED FX R TIBIA TECHNIQUE: Axial CT images of the RIGHT lower extremity was performed without IV contrast material. Coronal and sagittal reformats were provided. RADIATION DOSAGE (If Supplied By Facility): CTDIvol = ( 15.35 ) mGy, DLP = ( 760.57 ) mGycm COMPARISON: Prior study dated: May 18, 2023. FINDINGS: Bones: Nondisplaced oblique fracture through the distal shaft of the tibia. Soft Tissues: Soft tissue swelling. CT/Extremity Lower without Contra IMPRESSION: Nondisplaced oblique fracture through the distal shaft of the tibia. Overlying soft tissue swelling. Electronically Signed: Markel Pickard MD at 13:17 EST ,
== END | disposition home or self-care (01) ==
LOC: CT 14:24
PROVIDERS: PCP Nurse Practitioner Family; Referring Provider Student in an Organized Health Care Education/Training Program; Visit Provider Student in an Organized Health Care Education/Training Program
DX: S82.251A Displaced comminuted fracture of shaft of right tibia, initial encounter for closed fracture (principal); X58.XXXA Exposure to other specified factors, initial encounter
CPT/HCPCS: 73700

== ENCOUNTER 2023-07-30 21:10 | Inpatient (IN) | payer BC, SELFPAY ==
[2023-07-30 21:12] VITALS: BP 112/70; PULSE 76; RESP 18; TEMP 36.9; O2SAT 100; BMI 20.9
--- NOTE | 2023-07-30 21:52 | EDS_ITS ---
HPI HPI - GI History of Present Illness Chief Complaint: Abd Pain Narrative Narrative: Patient presenting with epigastric abdominal pain initially had she had some diffuse abdominal pain. This started today at about 130 while eating lunch. She states she had some veggie stirfry and a veggie pizza with red sauce on it and about 30 minutes after she ate she started having epigastric pain and dyspepsia. She took an omeprazole. She did not try Tums or Pepcid because of the flavor. She states she did not get any relief from this. She did not try any Tylenol or ibuprofen. She states the pain waxed and waned all afternoon. She has not had any fevers. Patient denies vomiting. Denies diarrhea or constipation. No vaginal complaints. No urinary complaints. Patient states she has had tubal ligation and does not current . PFSH PFS Medical History Gestational diabetes mellitus (GDM) Hx of thyroiditis Infertility Home Medications drospirenone 3 mg-estetrol 14.2 mg (28) tablet ([facility]) See Rx Instructions PO .COMPLEX #28 tabs 05/07/23 [Rx Last Taken Unknown] hydrocodone-acetaminophen 5-325mg 5mg-325mg 1 tab PO Q6H PRN PRN Pain 5 days #20 TABLETS 05/18/23 [Rx Last Taken Unknown] Allergy/AdvReac Type Severity Reaction Status Date / Time Sulfa (Sulfonamide Allergy Mild blisters Verified 07/30/23 21:12 Antibiotics) Family History Grandfather Hypertension Surgical History History of bilateral salpingectomy History of mandibular surgery Social History Smoking Status: Never smoker alcohol intake: never substance use type: does not use caffeine: Yes what type of physical activity do you participate in: none seatbelt use: always do you feel safe at home: Yes additional social history: Rwdyqql-Xgil-Dhgh/[place] 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 ED Constitutional Constitutional ED: Denies chills, fever(s) or sweats Eyes Eyes: Denies blurry vision or change in vision ENT ENT ED: Denies ear pain or sore throat Cardiovascular Cardiovascular: Denies chest pain, palpitations or racing heartbeat Respiratory/Chest Respiratory/Chest: Denies cough, dyspnea or sputum Gastrointestinal Gastrointestinal: Reports abdominal pain and other Details: Dyspepsia ; Denies constipation, diarrhea, nausea or vomiting Genitourinary Genitourinary ED: Denies dysuria, hematuria or urinary frequency Musculoskeletal Musculoskeletal: Denies arthralgias, myalgias or neck pain Integumentary Denies abscess, Abrasions or rash Neurologic Neurologic: Denies headache(s), paresthesias or weakness Psychiatric Psychiatric: Denies anxiety, depression, suicidal ideation or suicidal thoughts Endocrine Endocrinology: Denies polydipsia or polyuria EXAM Physical Exam Const Vital Signs: 07/30/23 21:12 Temperature 98.5 F Temperature Source Temporal Pulse Rate 76 Respiratory Rate 18 Blood Pressure 112/70 Blood Pressure Mean 84 Pulse Ox 100 Oxygen Delivery Method Room Air Positive well nourished General Appearance ED: NAD and pallor HEENT Reports moist mucous membranes normocephalic and atraumatic Eyes PERRL and EOMs intact bilaterally Resp normal respiratory effort Cardio regular rate and regular rhythm GI GI Narrative: Mild epigastric pain. No peritoneal signs. Back/Spine no CVA tenderness Neuro CN's II-XII intact bilaterally Sensorium / Orientation: alert Motor Exam: strength 5/5 throughout Psych mental status grossly normal and thought process normal Mood & Affect: Negative for depressed or anxious Skin General Skin Exam: jaundice and pallor MDM MDM MDM Narrative Medical decision making narrative: 33-year-old female with epigastric pain and diffuse abdominal exam reported her abdominal exam is benign. Vital signs are stable she is afebrile. He is will obtain a CBC to assess white blood cell count, hemoglobin and platelet. CMP to assess liver function enzymes. Lipase Pharyngitis. I do believe this is likely stomach related so I will give her GI cocktail, Toradol, Bentyl. On reevaluation patient still having abdominal pain. White blood cell count is 12.8. Hemoglobin 13.0. Platelets significantly elevated renal function electrolytes within normal limits. LFTs are normal. Lipase normal. hCG negative. Patient given morphine and Zofran as she is not feeling any better. We discussed getting CT of the pelvis with IV contrast that this will be obtained. This will be signed out to incoming ED physician for monitoring disposition. Impression: 1. abdominal pain 2. Leukocytosis Lab Data Labs: Laboratory Results - last 24 hr 07/30/23 07/30/23 22:10 23:00 WBC 12.8 H RBC 4.50 Hgb 13.0 Hct 40.1 MCV 89.1 MCH 28.9 MCHC 32.4 RDW Std Deviation 40.9 RDW Coeff of Rosa 12.5 Plt Count 333 MPV 8.7 Immature Gran % (Auto) 0.400 Neut % (Auto) 80.1 H Lymph % (Auto) 14.7 L [place] % (Auto) 4.1 Eos % (Auto) 0.4 Baso % (Auto) 0.3 Absolute Neuts (auto) 10.3 H Absolute Lymphs (auto) 1.88 Nucleated RBC % 0 Sodium 140 Potassium 3.8 Chloride 110 H Carbon Dioxide 27.0 Anion Gap 3 L BUN 18 Creatinine 0.78 Estim Creat Clear Calc 83.27 Est GFR (MDRD) Af Amer 107 Est GFR (MDRD) Non-Af 89 BUN/Creatinine Ratio 23.0 H Glucose 115 H Calcium 9.6 Total Bilirubin 0.70 AST 10 L ALT 16 Alkaline Phosphatase 80 Total Protein 7.2 Albumin 3.8 Globulin 3.4 Albumin/Globulin Ratio 1.1 Lipase 24 HCG, Quant 2 Urine Color Yellow Urine Clarity Sl. Cloudy Urine pH 9.0 Ur Specific [place] 1.015 Urine Protein 15 H Urine Glucose (UA) Normal Urine Ketones Negative Urine Occult Blood 250 H Urine Nitrite Negative Urine Bilirubin Negative Urine Urobilinogen Normal Ur Leukocyte Esterase 25 H Urine RBC 5-10 SEEN Urine WBC 0 SEEN Ur Squamous Epith Cells 0-5 SEEN Amorphous Sediment 1+ Urine Bacteria RARE Urine Mucus 0 SEEN Discharge Plan Triage Chief Complaint: Abd Pain ED Provider: Vicente Cabrera Dx/Rx/DC Orders Prescriptions: No Action Nextstellis 3 mg- 14.2 mg (28) tablet See Rx Instructions PO .COMPLEX Qty: 28 12RF Rx Instructions: take 1-PINK tablet once daily for 24 days/days 1-24 of cycle; take 1-WHITE tablet once daily for 4 days/days 25-28 of cycle. PO hydrocodone-acetaminophen [hydrocodone-acetaminophen] 5-325 mg tablet 1 tab PO Q6H PRN PRN (Reason: Pain) 5 Days Qty: 20 0RF Primary Care Provider: Shahnaz Fernandez NP Referrals: Shahnaz Fernandez NP, HEAT TREATING OPERATOR-C [Primary Care Provider] -
--- OUTSIDE RECORDS SUMMARY | 2023-07-30 22:11 | XMS RPT_ITS | CCD ---
Author Name Unknown Address [address] [place] [address] Organization [facility] Care Team Providers Care Joint Terminal Attack Controller Name Role Phone SCARLETT VIZCAINO CNP Consulting Unavailable SAUMYA HENLEY CNP Attending SAUMYA Murillo CNP Primary Care SAUMYA Murillo CNP Admitting Unavailabl e PROVIDER, UNKNOWN Consulting Unavailable PROVIDER, UNKNOWN Consulting Unavailable Allergies Allergy Classification Reported Allergen(s) Allergy Type Date of Onset Reaction(s) Facility (1 source) Sulfonamides (Antibiotic) Drug allergy (disorder) [facility] Repository Problems Problem Classification Problem Date Documented Da te Episodic/Chronic Genitourinary symptoms and ill-defined conditions (1 source) Dysuria; Translations: [Dysuria] Onset: 09-18-2022 Episodic Results Test Name Value Interpretation Reference Range Facil ity Encounters Encounter Date Encounter Type Care Provider Facility Start: 09-18-2022 End: 09-18-2022 ambulatory SCARLETT VIZCAINO [facility] Payers Date Payer Category Payer Unknown [id number] 1990 Unknown [id number] Summary Purpose Family History No Family History Records FoundNo Family History Records FoundNo Family History Records FoundNo Family History Records Found Advance Directives No Advanced Directives Records FoundNo Advanced Directives Records FoundNo Advanced Directives Records FoundNo Advanced Directives Records Found Additional Source Comments INFORMATION SOURCE (unrecogn ized section and content) DATE CREATED AUTHOR AUTHOR'S ORGANIZ ATION 06/01/2020 [facility] DATE CREATED AUTHOR AUTHOR'S ORGANIZ ATION 09/21/2022 [facility] DATE CREATED AUTHOR AUTHOR'S ORGANIZ ATION 09/22/2022 [facility] FOR RECORDS PERTAINING TO PATIENTS WHO ARE OR HAVE BEEN ENROLLED IN A CHEMICAL DEPENDENCY/SUBSTANCEABUSE PROGRAM, SOME INFORMATION MAY BE OMITTED. This clinical summary was aggregated from multiple sources. Caution should be exercised in using it in the provision of clinical care. This summary normalizes information from multiple sources, and as a consequence, information in this document may materially change the coding, format and clinical context of patient data. In addition, data may be omitted in some cases. CLINICAL DECISIONS SHOULD BE BASED ON THE PRIMARY CLINICAL RECORDS. [facility]. provides no warranty or guarantee of the accuracy or completeness of information in this document.
[2023-07-30 22:19] LABS: Absolute Lymphocyte Count 1.88 X10^3/uL (0.83-4.51); Absolute Neutrophil Count 10.3 X10^3/uL (2.0-7.7); Basophil# 0.04 X10^3/uL; Basophil% 0.3 % (0-1); Eosinophil# 0.05 X10^3/uL; Eosinophils% 0.4 % (0-5); Hematocrit 40.1 % (37-47); Lymphocyte # 1.88 X10^3/ul (0.83-4.51); Lymphocyte % 14.7 % (19-41); Mean Corp Hgb Conc 32.4 g/dL (32-36); Mean Corpuscular Hgb 28.9 pg (27.0-32.0); Mean Corpuscular Volume 89.1 fL (81-99); Mean Platelet Vol. 8.7 fl (6.2-12.0); Monocyte# 0.53 X10^3/uL; Monocyte% 4.1 % (0-10); NRBC Flagged by Analyzer 0 % (0-5); Neutrophil # 10.26 X10^3/uL (2.7-7.7); Neutrophil % 80.1 % (47-70); Platelet Count 333 K/mm3 (150-450); RBC Distribution Width CV 12.5 % (11.6-14.6); RBC Distribution Width SD 40.9 fl (35.1-43.9); White Blood Count 12.8 K/mm3 (4.4-11.0)
[2023-07-30] MEDS: Ketorolac 15 MG/ML Vial IV (22:23)
[2023-07-30] MEDS: Mag Hydrox/Al Hydrox/Simeth 30 ML UDC PO (22:23)
[2023-07-30] MEDS: Dicyclomine 20 MG/2 ML Vial IM (22:24)
[2023-07-30 22:51] LABS: ALB/GLOB Ratio 1.1 RATIO (0.9-2.4); AST(SGOT) 10 U/L (15-37); Alanine Aminotransfer ALT/SGPT 16 U/L (13-56); Albumin, Serum 3.8 g/dL (3.2-5.0); Alkaline Phosphatase 80 U/L (45-117); Anion Gap 3 (5-15); BUN 18 mg/dL (7-18); Calcium,Total 9.6 mg/dL (8.5-10.1); Chloride 110 mmol/L (98-107); Creatinine, Serum 0.78 mg/dL (0.55-1.02); EST Glomerular Filtration Rate 89 mL/min (>60); Est Glom Filt Rate - Afr Amer 107 mL/min (>60); Estimated Creatinine Clearance 83.27 ml/min; Globulin 3.4 g/dL (2.2-4.2); Glucose 115 mg/dL (74-106); Lipase 24 U/L (13-75); Potassium 3.8 mmol/L (3.5-5.1); Protein, Total 7.2 g/dL (6.4-8.2); Sodium Level 140 mmol/L (136-145); hCG Titer Quant., Serum 2 mIU/mL (1-3)
[2023-07-30 23:14] LABS: Mucous, Urine 0 SEEN /hpf (<or=2+); White Blood Cells 0 SEEN /hpf (0-5)
[2023-07-30 23:16] LABS: Color, Urine Yellow (Yellow); Glucose, Dipstick Normal (Normal); Ketone-Dipstick Negative (Negative); Leukocyte Esterase-Dipstick 25 /ul (Negative); Nitrite-Dipstick Negative (Negative); Occult Blood-Urine 250 /ul (Negative); Protein-Dipstick 15 mg/dl (Negative); Specific Gravity, Urine 1.015 (1.002-1.030); Urine Bilirubin Dipstick Negative (Negative); Urine Clarity Sl. Cloudy (Clear); Urine Urobilinogen Normal (Normal)
[2023-07-30] MEDS: Ondansetron 4 MG/2 ML Vial IV (23:25)
[2023-07-30] MEDS: Morphine 4 MG/ML Syringe IV (23:25)
[2023-07-30 23:31] LABS: Amorphous Sediment 1+; Bacteria RARE /hpf (None Seen); Red Blood Cells-Urine 5-10 SEEN /hpf (0-5); Squamous Epithelial Cells - UA 0-5 SEEN /hpf (5-10)
--- NOTE | 2023-07-30 23:41 | CT_ITS ---
We are attempting to reach an attending provider to discuss findings. An addendum with communication details will be sent when the communication is complete. EXAM: CT ABDOMEN AND PELVIS WITH INTRAVENOUS CONTRAST CLINICAL INDICATION: abdo TECHNIQUE: Helically acquired images were obtained of the abdomen and pelvis with intravenous contrast. This CT exam was performed using one or more of the following dose reduction techniques: automated exposure control, adjustment of the mA and/or kV according to patient size, and/or use of iterative reconstruction technique. CONTRAST: IV 75mL Isovue-370 RADIATION DOSE: CTDIvol = 8.73 mGy, DLP = 380.83 mGy-cm COMPARISON: May 29, 2013. FINDINGS: LOWER THORAX: Unremarkable. Lung bases are clear. No cardiomegaly. No significant pericardial effusion. ABDOMEN: LIVER: Unremarkable. Homogeneous. No focal mass. GALLBLADDER AND BILE DUCTS: Contracted gallbladder. No calcified gallstones. No gallbladder distention or wall edema. No intra- or extrahepatic biliary ductal dilation. PANCREAS: Unremarkable. No focal cystic or solid mass. SPLEEN: Unremarkable. Normal size without focal cystic or solid mass. ADRENALS: Unremarkable. No nodules. KIDNEYS AND URETERS: Unremarkable. Normal renal size and position. No hydronephrosis. STOMACH AND BOWEL: There is prominent distention of the stomach predominantly with fluid, marked distention of multiple fluid-filled proximal and mid small bowel loops and collapsed middistal small bowel loops, consistent with a significant mechanical small bowel obstruction. Maximum small bowel diameter at least 4.1 cm in the midabdomen, with a loop surrounding collapsed small bowel in the mid-lower slightly right abdomen best seen on coronal images, presumably zone of transition. Most of the colon is collapsed and decompressed, scant gas and liquid stool in the distal colon. Only slight gas and liquid stool in the low lying cecum. There is a calcific density of 1.1 cm in the cecum. Patent mesenteric, periportal and splenic veins. No swirling vessels to suggest volvulus. No evidence of bowel malrotation. No focal inflammatory change. PELVIS: APPENDIX: The appendix is not clearly identified but is suspected to be a small structure on sagittal image #59 through 61, tip near the uterus.. BLADDER: Partially contracted urinary bladder. REPRODUCTIVE: Retroflexed uterus appears unremarkable. ABDOMEN and PELVIS: INTRAPERITONEAL SPACE: Unremarkable. No ascites or other fluid collection. No free air. BONES/JOINTS: Mild bulging discs posteriorly at L5-S1 no significant spinal stenosis. Mild levoscoliosis centered at L2-3 again noted. No suspicious lytic or blastic abnormality. SOFT TISSUES: Unremarkable. No discrete abdominal or pelvic wall hernia. VASCULATURE: Unremarkable. Abdominal aorta is non-dilated. LYMPH NODES: Unremarkable. No enlarged lymph nodes. CT/Abdomen/Pelvis W IV Cont ONLY IMPRESSION: 1. High-grade mid small bowel obstruction. Etiology unclear, primary considerations include adhesions, internal hernia, and stricture or acute focal inflammation. No visible mass. Multiple collapsed mid-distal small bowel loops appear mildly thick-walled. Zone of transition is estimated to be in the lower abdomen. 2. There is abrupt narrowing of the third part of the duodenum between the SMA and aorta suggesting some degree of SMA syndrome but the pertinent acute obstruction appears to be more distal involving mid small bowel. 3. No free air, free fluid, or suspicious vascular findings. Tabletlike structure or stone in the cecum appears incidentally noted. Electronically Signed: Jennifer Humphreys MD at 0:56 EST ,
[2023-07-31 01:43] VITALS: BP 121/80; PULSE 100; RESP 18; O2SAT 100
--- NOTE | 2023-07-31 02:22 | PCM.HP.STD ---
HPI - General HPI Narrative ALEXIS DIAL, is a 33 F who presents with abdominal pain and nausea. Patient reports this started today. She says she has never had a bowel obstruction before. She denies vomiting but she does have nausea. She says she has epigastric pain and heartburn. She did have a bowel movement since being in the ER. She denies fevers or chills. PFS Medical History Gestational diabetes mellitus (GDM) Hx of thyroiditis Infertility Home Medications drospirenone 3 mg-estetrol 14.2 mg (28) tablet ([facility]) See Rx Instructions PO .COMPLEX #28 tabs 05/07/23 [Rx Last Taken Unknown] hydrocodone-acetaminophen 5-325mg 5mg-325mg 1 tab PO Q6H PRN PRN Pain 5 days #20 TABLETS 05/18/23 [Rx Last Taken Unknown] Allergy/AdvReac Type Severity Reaction Status Date / Time Sulfa (Sulfonamide Allergy Mild blisters Verified 07/30/23 21:12 Antibiotics) Family History Grandfather Hypertension Surgical History History of bilateral salpingectomy History of mandibular surgery Social History Smoking Status: Never smoker alcohol intake: never substance use type: does not use caffeine: Yes what type of physical activity do you participate in: none seatbelt use: always do you feel safe at home: Yes additional social history: [employer]kizlff[employer]ljh/[employer] 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 Constitutional Constitutional: Denies anorexia, chills or fatigue Eyes Eyes: Denies blurry vision ENT HEENT: Denies abnormal hearing Cardiovascular Cardiovascular: Denies chest pain Respiratory/Chest Respiratory/Chest: Denies cough or dyspnea Gastrointestinal Gastrointestinal: Reports abdominal pain and nausea; Denies coffee ground emesis or vomiting Genitourinary Genitourinary: Denies change in urinary stream Musculoskeletal Musculoskeletal: Denies abnormal gait Integumentary Integumentary: Denies jaundice Neurologic Neurologic: Denies dizziness Psychiatric Psychiatric: Reports anxiety Endocrine Endocrinology: Denies heat intolerance Hematologic/Lymphatic Hematologic/Lymphatic: Denies easy bleeding Vital Signs Vital Signs Vital Signs: 07/30/23 21:12 07/31/23 01:43 Temperature 98.5 F Temperature Source Temporal Pulse Rate 76 100 Respiratory Rate 18 18 Blood Pressure 112/70 121/80 H Blood Pressure Mean 84 93 Pulse Ox 100 100 Oxygen Delivery Method Room Air Room Air Weight Weight: 118 lb 6.4 oz Body Mass Index (BMI) 20.9 Physical Exam Const oriented x3 and no apparent distress Resp normal respiratory effort Cardio regular rate and regular rhythm GI soft to palpation and non-tender Inspection: abdominal distention Extremity normal to inspection Results Lab / Micro Data 07/30/23 22:10 07/30/23 22:10 Labs: Laboratory Results - last 24 hr 07/30/23 22:10: WBC 12.8 H, RBC 4.50, Hgb 13.0, Hct 40.1, MCV 89.1, MCH 28.9, MCHC 32.4, RDW Std Deviation 40.9, RDW Coeff of Rosa 12.5, Plt Count 333, MPV 8.7, Immature Gran % (Auto) 0.400, Neut % (Auto) 80.1 H, Lymph % (Auto) 14.7 L, [place] % (Auto) 4.1, Eos % (Auto) 0.4, Baso % (Auto) 0.3, Absolute Neuts (auto) 10.3 H, Absolute Lymphs (auto) 1.88, Nucleated RBC % 0, Sodium 140, Potassium 3.8, Chloride 110 H, Carbon Dioxide 27.0, Anion Gap 3 L, BUN 18, Creatinine 0.78, Estim Creat Clear Calc 83.27, Est GFR (MDRD) Af Amer 107, Est GFR (MDRD) Non-Af 89, BUN/Creatinine Ratio 23.0 H, Glucose 115 H, Calcium 9.6, Total Bilirubin 0.70, AST 10 L, ALT 16, Alkaline Phosphatase 80, Total Protein 7.2, Albumin 3.8, Globulin 3.4, Albumin/Globulin Ratio 1.1, Lipase 24, HCG, Quant 2 07/30/23 23:00: Urine Color Yellow, Urine Clarity Sl. Cloudy, Urine pH 9.0, Ur Specific [place] 1.015, Urine Protein 15 H, Urine Glucose (UA) Normal, Urine Ketones Negative, Urine Occult Blood 250 H, Urine Nitrite Negative, Urine Bilirubin Negative, Urine Urobilinogen Normal, Ur Leukocyte Esterase 25 H, Urine RBC 5-10 SEEN, Urine WBC 0 SEEN, Ur Squamous Epith Cells 0-5 SEEN, Amorphous Sediment 1+, Urine Bacteria RARE, Urine Mucus 0 SEEN Imaging Radiology Impression Abdomen/Pelvis CT 07/30/23 23:41 IMPRESSION: 1. High-grade mid small bowel obstruction. Etiology unclear, primary considerations include adhesions, internal hernia, and stricture or acute focal inflammation. No visible mass. Multiple collapsed mid-distal small bowel loops appear mildly thick-walled. Zone of transition is estimated to be in the lower abdomen. 2. There is abrupt narrowing of the third part of the duodenum between the SMA and aorta suggesting some degree of SMA syndrome but the pertinent acute obstruction appears to be more distal involving mid small bowel. 3. No free air, free fluid, or suspicious vascular findings. Tabletlike structure or stone in the cecum appears incidentally noted. Electronically Signed: Jennifer Humphreys MD at 0:56 EST , ADDENDUM: 07/31/23 0106 IMPRESSION: 1. High-grade mid small bowel obstruction. Etiology unclear, primary considerations include adhesions, internal hernia, and stricture or acute focal inflammation. No visible mass. Multiple collapsed mid-distal small bowel loops appear mildly thick-walled. Zone of transition is estimated to be in the lower abdomen. 2. There is abrupt narrowing of the third part of the duodenum between the SMA and aorta suggesting some degree of SMA syndrome but the pertinent acute obstruction appears to be more distal involving mid small bowel. 3. No free air, free fluid, or suspicious vascular findings. Tabletlike structure or stone in the cecum appears incidentally noted. N.B. : The above Results were Read Back by Jennifer Humphreys MD to Rebeca Kumari RN, and understanding confirmed on 07/31/2023 00:59:46 (ET). Electronically Signed: Jennifer Humphreys MD at 0:56 EST , Assessment & Plan Assessment/Plan (1) Small bowel obstruction: PLAN: The patient was having nausea and epigastric pain and had a CT scan which showed high-grade small bowel obstruction. The patient has had a in the past and this may be from adhesions. They did not see any swirling of the mesentery. Currently she is comfortable after morphine and not having any abdominal pain. She is still having nausea. After reviewing the CT scan it appears there is copious amount of fluid in her stomach I will recommend NG decompression. I will admit her and start her on IV fluids and order a KUB for the morning but I informed her that we likely will be performing surgery tomorrow as she has a high-grade obstruction. I explained that NG decompression would assist in being able to perform the surgery laparoscopically. Patient understands and is willing to proceed. Jessee Ferraro MD Pager: [facility] [address] [place] [address] [address] [place] [address] Office:
[2023-07-31] MEDS: Oxymetazoline 0.05% 1 SPRAY SPRAY.BTL 2 SPRAY NASAL (02:32)
--- OUTSIDE RECORDS SUMMARY | 2023-07-31 02:34 | XMS RPT_ITS | CCD ---
Author Name Unknown Address [address] [place] [address] Organization [facility] Care Team Providers Care Tow Car Driver Name Role Phone SCARLETT VIZCAINO CNP Consulting Unavailable SAUMYA HENLEY CNP Attending SAUMYA Murillo CNP Primary Care SAUMYA Murillo CNP Admitting Unavailabl e PROVIDER, UNKNOWN Consulting Unavailable PROVIDER, UNKNOWN Consulting Unavailable Allergies Allergy Classification Reported Allergen(s) Allergy Type Date of Onset Reaction(s) Facility (1 source) Sulfonamides (Antibiotic) Drug allergy (disorder) [facility] Repository Problems Problem Classification Problem Date Documented Da te Episodic/Chronic Genitourinary symptoms and ill-defined conditions (1 source) Dysuria; Translations: [Dysuria] Onset: 09-18-2022 Episodic Results Test Name Value Interpretation Reference Range Facil ity Encounters Encounter Date Encounter Type Care Provider Facility Start: 09-18-2022 End: 09-18-2022 ambulatory SCARLETT VIZCAINO [facility] Payers Date Payer Category Payer Unknown [id number] 1990 Unknown [id number] Summary Purpose Family History No Family History Records FoundNo Family History Records FoundNo Family History Records FoundNo Family History Records Found Advance Directives No Advanced Directives Records FoundNo Advanced Directives Records FoundNo Advanced Directives Records FoundNo Advanced Directives Records Found Additional Source Comments INFORMATION SOURCE (unrecogn ized section and content) DATE CREATED AUTHOR AUTHOR'S ORGANIZ ATION 06/01/[address] [facility] DATE CREATED AUTHOR AUTHOR'S ORGANIZ ATION 09/21/2022 [facility] DATE CREATED AUTHOR AUTHOR'S ORGANIZ ATION 09/22/2022 [...] BE BASED ON THE PRIMARY CLINICAL RECORDS. [facility] [employer] [facility]. provides no warranty or guarantee of the accuracy or completeness of information in this document.
--- OUTSIDE RECORDS SUMMARY | 2023-07-31 02:34 | XMS RPT_ITS | CCD ---
Author Name Unknown Address [address] [place] [address] Organization [facility] Care Team Providers Care Land Sales Agent Name Role Phone SCARLETT VIZCAINO CNP Consulting Unavailable SAUMYA HENLEY CNP Attending SAUMYA Murillo CNP Primary Care SAUMYA Murillo CNP Admitting Unavailabl e PROVIDER, UNKNOWN Consulting Unavailable PROVIDER, UNKNOWN Consulting Unavailable Allergies Allergy Classification Reported Allergen(s) Allergy Type Date of Onset Reaction(s) Facility (1 source) Sulfonamides (Antibiotic) Drug allergy (disorder) [facility] Repository Problems Problem Classification Problem Date Documented Da te Episodic/Chronic Genitourinary symptoms and ill-defined conditions (1 source) Dysuria; Translations: [Dysuria] Onset: 09-18-2022 Episodic Results Test Name Value Interpretation Reference Range Facil ity Encounters Encounter Date Encounter Type Care Provider Facility Start: 09-18-2022 End: 09-18-2022 ambulatory SCARLETT VIZCAINO [facility] Payers Date Payer Category Payer Unknown [id number] 1990 Unknown [id number] Summary Purpose Family History No Family History Records FoundNo Family History Records FoundNo Family History Records FoundNo Family History Records Found Advance Directives No Advanced Directives Records FoundNo Advanced Directives Records FoundNo Advanced Directives Records FoundNo Advanced Directives Records Found Additional Source Comments INFORMATION SOURCE (unrecogn ized section and content) DATE CREATED AUTHOR AUTHOR'S ORGANIZ ATION 06/01/2020 [facility] DATE CREATED AUTHOR AUTHOR'S ORGANIZ ATION 09/21/2022 [facility] DATE CREATED AUTHOR AUTHOR'S ORGANIZ ATION 09/22/2022 [...] BE BASED ON THE PRIMARY CLINICAL RECORDS. [facility]. provides no warranty or guarantee of the accuracy or completeness of information in this document.
--- NOTE | 2023-07-31 02:35 | RAD_ITS ---
EXAM: XR ABDOMEN, 1 VIEW CLINICAL INDICATION: NG Insertion TECHNIQUE: Frontal supine view of the abdomen/pelvis. COMPARISON: No relevant prior studies available. FINDINGS: LOWER THORAX: The lungs are almost completely included and well aerated. Normal heart size. GASTROINTESTINAL TRACT: Unremarkable. Non-obstructive. Large stomach and moderate gastric air bubble. Minimal scattered additional bowel gas. ORGANS: Unremarkable as visualized. No organomegaly. No abnormal calcifications. BONES/JOINTS: Mild apparent levoscoliosis at the thoracolumbar junction. SOFT TISSUES: No acute pathology. TUBES, LINES AND DEVICES: Enteric tube and side-port in the stomach, distal tip of the enteric tube 815.2 cm distal to the expected region of the GE junction, apparently large stomach with moderate gastric air bubble. RAD/Abdomen Single View (Portable) IMPRESSION: Enteric tube in the body of the stomach to the left of midline. Adequately positioned. Electronically Signed: Jennifer Humphreys MD at 3:51 EST ,
--- NOTE | 2023-07-31 03:06 | ED.RN ---
1L of fluids administered while in ER.
[2023-07-31 03:23] VITALS: BMI 20.9
[2023-07-31 03:30] VITALS: BP 104/79; PULSE 86; RESP 18; TEMP 36.9; O2SAT 100
[2023-07-31 03:32] VITALS: BP 121/80; PULSE 85; RESP 16; TEMP 36.7; O2SAT 100
[2023-07-31] MEDS: 0.9% Normal Saline (1000mL) 1,000 ML 125 ML IV ×3 (03:47→20:23)
[2023-07-31] MEDS: 0.9% Saline Lock 10 ML Syringe IV (03:50)
--- NOTE | 2023-07-31 05:18 | RAD_ITS ---
STUDY: X-RAY - ABDOMEN/PELVIS REASON FOR EXAM: Female, 33 years old. sbo TECHNIQUE: Single AP view of the abdomen / pelvis. COMPARISON: July 31, 2023 at 2:33 AM. FINDINGS: Normal visualized lung bases. There is an unremarkable bowel gas pattern. The feeding tube is in the proximal stomach in the left upper quadrant. Normal soft tissue structures. Needle scoliosis of the lumbar spine is present.. RAD/Abdomen Single View (Portable) IMPRESSION: Feeding tube terminates in the proximal stomach Electronically Signed: Terry Hensley MD at 14:03 EST ,
[2023-07-31] MEDS: Morphine 2 MG/ML Syringe IV (05:26)
[2023-07-31 05:37] LABS: Absolute Lymphocyte Count 1.44 X10^3/uL (0.83-4.51); Absolute Neutrophil Count 9.9 X10^3/uL (2.0-7.7); Basophil# 0.03 X10^3/uL; Basophil% 0.2 % (0-1); Hematocrit 41.9 % (37-47); Hemoglobin 13.9 g/dL (12.0-15.0); Lymphocyte # 1.44 X10^3/ul (0.83-4.51); Lymphocyte % 11.9 % (19-41); Mean Corp Hgb Conc 33.2 g/dL (32-36); Mean Corpuscular Hgb 29.3 pg (27.0-32.0); Mean Corpuscular Volume 88.4 fL (81-99); Mean Platelet Vol. 8.7 fl (6.2-12.0); Monocyte# 0.74 X10^3/uL; Monocyte% 6.1 % (0-10); NRBC Flagged by Analyzer 0 % (0-5); Neutrophil # 9.87 X10^3/uL (2.7-7.7); Neutrophil % 81.5 % (47-70); Platelet Count 327 K/mm3 (150-450); RBC Distribution Width CV 12.3 % (11.6-14.6); RBC Distribution Width SD 40.4 fl (35.1-43.9); Red Blood Count 4.74 M/mm3 (4.2-5.4); White Blood Count 12.1 K/mm3 (4.4-11.0)
[2023-07-31 05:53] LABS: Anion Gap 4 (5-15); BUN 17 mg/dL (7-18); BUN/Creat Ratio 24.2 RATIO (10-20); Calcium,Total 9.3 mg/dL (8.5-10.1); Chloride 110 mmol/L (98-107); EST Glomerular Filtration Rate 101 mL/min (>60); Est Glom Filt Rate - Afr Amer 122 mL/min (>60); Estimated Creatinine Clearance 92.79 ml/min; Glucose 112 mg/dL (74-106); Potassium 3.8 mmol/L (3.5-5.1); Sodium Level 138 mmol/L (136-145)
--- NOTE | 2023-07-31 06:04 | EKG12_ITS ---
Test Reason : pre op Blood Pressure : / mmHG Vent. Rate : 077 BPM Atrial Rate : 077 BPM P-R Int : 138 ms QRS Dur : 078 ms QT Int : 392 ms P-R-T Axes : 082 066 073 degrees QTc Int : 443 ms Normal sinus rhythm with sinus arrhythmia Normal ECG No previous ECGs available Confirmed by Quinn Bowie ([id number]), tape editor KEITH MALHOTRA ([id number]) on 08/03/2023 9:45:16 AM Referred By: Jessee Ferraro Confirmed By:Quinn Bowie
--- NOTE | 2023-07-31 08:14 | NURSING ---
This Rn unclamped NG tube for pt to go to the bathroom and then this RN came in room and radiology came in at same time. Did not reconnect NG to suction since Radiology here to give pt Gastrograffin.
--- NOTE | 2023-07-31 08:15 | PN.SURG_ITS ---
Subjective Subjective Patient reports that she is passing gas this morning. She is more comfortable with the NG tube in place. Objective Data Objective Data Vital Signs: Vital Signs Temp Pulse Resp BP Pulse Ox O2 Del Method 98.0 F 85 16 121/80 H 100 Room Air 07/31/23 03:32 07/31/23 03:32 07/31/23 03:32 07/31/23 03:32 07/31/23 03:32 07/31/23 03:32 Oxygen Delivery Method Room Air Weight: 118 lb 6.4 oz Body Mass Index (BMI) 20.9 Intake & Output: Intake and Output for Last 24 Hours 07/29/23 07/30/23 07/31/23 23:59 23:59 23:59 Output Total 1550 / 1550 Balance -1550 / -1550 Lab / Micro Data 07/31/23 05:29 07/31/23 05:29 Labs: Laboratory Results - last 24 hr 07/30/23 22:10: WBC 12.8 H, RBC 4.50, Hgb 13.0, Hct 40.1, MCV 89.1, MCH 28.9, MCHC 32.4, RDW Std Deviation 40.9, RDW Coeff of Rosa 12.5, Plt Count 333, MPV 8.7, Immature Gran % (Auto) 0.400, Neut % (Auto) 80.1 H, Lymph % (Auto) 14.7 L, [place] % (Auto) 4.1, Eos % (Auto) 0.4, Baso % (Auto) 0.3, Absolute Neuts (auto) 10.3 H, Absolute Lymphs (auto) 1.88, Nucleated RBC % 0, Sodium 140, Potassium 3.8, Chloride 110 H, Carbon Dioxide 27.0, Anion Gap 3 L, BUN 18, Creatinine 0.78, Estim Creat Clear Calc 83.27, Est GFR (MDRD) Af Amer 107, Est GFR (MDRD) Non-Af 89, BUN/Creatinine Ratio 23.0 H, Glucose 115 H, Calcium 9.6, Total Bilirubin 0.70, AST 10 L, ALT 16, Alkaline Phosphatase 80, Total Protein 7.2, Albumin 3.8, Globulin 3.4, Albumin/Globulin Ratio 1.1, Lipase 24, HCG, Quant 2 07/30/23 23:00: Urine Color Yellow, Urine Clarity Sl. Cloudy, Urine pH 9.0, Ur Specific [place] 1.015, Urine Protein 15 H, Urine Glucose (UA) Normal, Urine Ketones Negative, Urine Occult Blood 250 H, Urine Nitrite Negative, Urine Bilirubin Negative, Urine Urobilinogen Normal, Ur Leukocyte Esterase 25 H, Urine RBC 5-10 SEEN, Urine WBC 0 SEEN, Ur Squamous Epith Cells 0-5 SEEN, Amorphous Sediment 1+, Urine Bacteria RARE, Urine Mucus 0 SEEN 07/31/23 05:29: WBC 12.1 H, RBC 4.74, Hgb 13.9, Hct 41.9, MCV 88.4, MCH 29.3, MCHC 33.2, RDW Std Deviation 40.4, RDW Coeff of Rosa 12.3, Plt Count 327, MPV 8.7, Immature Gran % (Auto) 0.300, Neut % (Auto) 81.5 H, Lymph % (Auto) 11.9 L, [place] % (Auto) 6.1, Eos % (Auto) 0.0, Baso % (Auto) 0.2, Absolute Neuts (auto) 9.9 H, Absolute Lymphs (auto) 1.44, Nucleated RBC % 0, Sodium 138, Potassium 3.8, Chloride 110 H, Carbon Dioxide 24.0, Anion Gap 4 L, BUN 17, Creatinine 0.70, Estim Creat Clear Calc 92.79, Est GFR (MDRD) Af Amer 122, Est GFR (MDRD) Non-Af 101, BUN/Creatinine Ratio 24.2 H, Glucose 112 H, Calcium 9.3 Radiography Diagnostic Testing: Radiology Impression Abdomen/Pelvis CT 07/30/23 23:41 IMPRESSION: 1. High-grade mid small bowel obstruction. Etiology unclear, primary considerations include adhesions, internal hernia, and stricture or acute focal inflammation. No visible mass. Multiple collapsed mid-distal small bowel loops appear mildly thick-walled. Zone of transition is estimated to be in the lower abdomen. 2. There is abrupt narrowing of the third part of the duodenum between the SMA and aorta suggesting some degree of SMA syndrome but the pertinent acute obstruction appears to be more distal involving mid small bowel. 3. No free air, free fluid, or suspicious vascular findings. Tabletlike structure or stone in the cecum appears incidentally noted. Electronically Signed: Jennifer Humphreys MD at 0:56 EST , ADDENDUM: 07/31/23 0106 IMPRESSION: 1. High-grade mid small bowel obstruction. Etiology unclear, primary considerations include adhesions, internal hernia, and stricture or acute focal inflammation. No visible mass. Multiple collapsed mid-distal small bowel loops appear mildly thick-walled. Zone of transition is estimated to be in the lower abdomen. 2. There is abrupt narrowing of the third part of the duodenum between the SMA and aorta suggesting some degree of SMA syndrome but the pertinent acute obstruction appears to be more distal involving mid small bowel. 3. No free air, free fluid, or suspicious vascular findings. Tabletlike structure or stone in the cecum appears incidentally noted. N.B. : The above Results were Read Back by Jennifer Humphreys MD to Rebeca Kumari RN, and understanding confirmed on 07/31/2023 00:59:46 (ET). Electronically Signed: Jennifer Humphreys MD at 0:56 EST , KUB X-Ray 07/31/23 02:35 IMPRESSION: Enteric tube in the body of the stomach to the left of midline. Adequately positioned. Electronically Signed: Jennifer Humphreys MD at 3:51 EST , Physical Exam Const oriented x3 and no apparent distress Resp normal respiratory effort GI soft to palpation and non-tender Assessment & Plan Assessment/Plan (1) Small bowel obstruction: PLAN: The patient still had dark fluid from her NG this morning. It is only been in for a few hours but the patient would like to try to avoid surgery today. She says she passed a little gas this morning as she did have a bowel movement in the ER yesterday. I will try a small bowel follow-through with Gastrografin today. If she does not tolerate the follow-through or if it does not reach the colon I will plan for surgery tomorrow with NG decompression overnight. Jessee Ferraro MD Pager: [facility] [address] [place] [address], [address] [place] [phone] Office:
--- NOTE | 2023-07-31 08:15 | RAD_ITS ---
EXAM: X-ray SMALL BOWEL FOLLOW THROUGH CLINICAL INDICATION: SBS WITH GASTRO, IMMEDIATE, 1 HR AND 6HR IMAGES TECHNIQUE: Serial axial images of the small bowel including multiple serial delayed images following oral contrast administration. Immediate, 1 OR, and six-hour postcontrast images. COMPARISON: 07/31/2023. CT abdomen and pelvis, 07/30/2023. FINDINGS: An enteric tube is present with side port at GE junction. Contrast is administered through the enteric tube. Minimal reflux into the proximal esophagus is identified on immediate images. The gastric lumen is filled with contrast and contrast is identified initially into the proximal small bowel. At 6 hours, the residual contrast from the esophagus was evacuated due to placement of suction. Contrast is identified within small bowel loops at 6 hours and not definitely within the colon. The contrast is significantly dilated. Small bowel loops are dilated up to approximately 3.9 cm correlating with the prior CT suggesting small bowel obstruction. There is contrast within the urinary bladder likely excreted from prior CT administration. RAD/Small Bowel Series Only IMPRESSION: Limited nonfluoroscopic small bowel follow-through. Contrast is not distinctly visualized in the colon and small bowel loops are dilated suggesting small bowel obstruction correlating with prior CT. Electronically Signed: Vinay Parks DO at 16:33 EST ,
[2023-07-31 09:01] VITALS: BP 105/75; PULSE 76; RESP 16; TEMP 36.8; O2SAT 100
[2023-07-31] MEDS: Pantoprazole Sodium 40 MG in 0.9% Normal Saline (100mL MB+) 100 ML 330 MG IV (09:05)
--- NOTE | 2023-07-31 09:50 | CASEMGMT ---
UMA SELBY Assessment: Face to Face with pt for initial transition planning/care coordination assessment. UMA SELBY introduced self and role at [facility], pt voices understanding and consents to assessment. Pt is A&O x4 and answers all questions appropriately at this time. Pt lying in bed with NG in in no distress. Care providers, pharmacy, and demographics verified/updated. Admitting Dx: SBO PCP:Jim Specialists:Denies Preferred Pharmacy:[facility] Retail Insurance: [employer] Prescription Benefit: yes LNOK: Thong Briscoe, Living Arrangements: Pt lives with and 3 children in a two story home with 6 steps to enter. Pt reports she is I in ADL's and denies concerns at home. Transportation: Pt drives self and denies concerns with transportation. DME:Denies HHC/SNF: Denies Pt states no concerns with going home at time of dc. Pt states no further concerns/needs. CM to follow. Advised pt to ask CM if any further question/concerns/needs arise, voices understanding. Pt Goal: Home Plan: Home Abmer EATON CM
--- NOTE | 2023-07-31 10:16 | NURSING ---
Pt became nauseated. 6 out of 10 nausea. Pt agreeable to have NG back to suction. This RN notified Radiology since they were doing the small bowel series, they are aware. This nurse will cortext DR. Ferraro here in a few mintues as this RN is waiting to see total amt of gastric drainage that comes out since hooked to LIWS.
[2023-07-31 15:00] VITALS: BP 109/80; PULSE 80; RESP 18; TEMP 37.1; O2SAT 100
[2023-07-31 20:28] VITALS: BMI 20.9
[2023-07-31 20:42] VITALS: BP 113/80; PULSE 87; RESP 16; TEMP 36.3; O2SAT 100
[2023-08-01] MEDS: 0.9% Normal Saline (1000mL) 1,000 ML 125 ML IV (03:58)
[2023-08-01] MEDS: Phenol/Sodium Phenolate 180ML 5 SPRAY MUCOUS MEM (04:01)
[2023-08-01 04:04] VITALS: BP 124/84; PULSE 83; RESP 16; TEMP 36.1; O2SAT 99
[2023-08-01 07:49] VITALS: BP 112/72; PULSE 114; RESP 16; TEMP 37.4; O2SAT 99
--- NOTE | 2023-08-01 08:00 | RAD_ITS ---
EXAM: [place] SMALL BOWEL FOLLOW THROUGH CLINICAL INDICATION: sbo -- images immediate, 1 hour and 6 hour TECHNIQUE: 3 radiographs of the abdomen obtained following GI contrast enhancement. The endogastric tube. Immediate and one hour delayed views are presented. COMPARISON: Prior GI study of 07/31/2023. FINDINGS: SMALL BOWEL: There is progression of contrast from the stomach to nearly the entire colon at 1 hour indicating normal transit time. The mucosal pattern of the bowel is normal. No significant bowel distention. RAD/Small Bowel Series Only IMPRESSION: No evidence of bowel obstruction. Normal transit time.. Electronically Signed: Krish Stone MD at 10:40 EST ,
--- NOTE | 2023-08-01 08:00 | NURSING ---
This RN clamped NG so pt could go to bathroom. Radiology here and starting the small bowel series.
[2023-08-01 08:04] VITALS: PULSE 114
--- NOTE | 2023-08-01 08:40 | PCM.PN.SRG ---
Subjective Subjective Patient reports she is passing gas and had a bowel movement has no abdominal pain or nausea today. Objective Data Objective Data Vital Signs: Vital Signs Temp Pulse Resp BP Pulse Ox O2 Del Method 99.4 F H 114 H 16 112/72 99 Room Air 08/01/23 07:49 08/01/23 08:04 08/01/23 07:49 08/01/23 07:49 08/01/23 07:49 08/01/23 08:04 Oxygen Delivery Method Room Air Weight: 118 lb 6.4 oz Body Mass Index (BMI) 20.9 Intake & Output: Intake and Output for Last 24 Hours 07/30/23 07/31/23 08/01/23 23:59 23:59 23:59 Intake Total 2288.33 / 2288.33 1067.92 / 1067.92 Output Total 2900 / 2900 200 / 200 Balance -611.67 / -611.67 867.92 / 867.92 Lab / Micro Data 07/31/23 05:29 07/31/23 05:29 Radiography Diagnostic Testing: Radiology Impression KUB X-Ray 07/31/23 05:18 IMPRESSION: Feeding tube terminates in the proximal stomach Electronically Signed: Terry Hensley MD at 14:03 EST , Small Bowel X-Ray 07/31/23 08:15 IMPRESSION: Limited nonfluoroscopic small bowel follow-through. Contrast is not distinctly visualized in the colon and small bowel loops are dilated suggesting small bowel obstruction correlating with prior CT. Electronically Signed: Vinay Parks DO at 16:33 EST , Physical Exam Const oriented x3 and no apparent distress Resp normal respiratory effort GI soft to palpation and non-tender Assessment & Plan Assessment/Plan (1) Small bowel obstruction: PLAN: The patient did not tolerate her small bowel follow-through yesterday and had nausea and had to be reconnected to suction. We plan on operating today but this morning the patient is telling me she is feeling much better and passing gas and not having abdominal pain and would like to hold off on surgery. I decided to repeat a small bowel follow-through to have objective prove that she is not obstructed. During the initial shot of the small bowel follow-through there was already contrast in the colon from yesterday's follow-through so I am hopeful that the contrast will make it through in a timely fashion she will tolerate and we can remove the NG and start a diet today. If she does not tolerate small bowel follow-through today the plan will be for surgery tomorrow. Jessee Ferraro MD Pager: [facility] [address] [place] [address] [address] [place] [address] Office:
[2023-08-01] MEDS: Pantoprazole Sodium 40 MG in 0.9% Normal Saline (100mL MB+) 100 ML 330 MG IV (10:42)
[2023-08-01] MEDS: Acetaminophen 325 MG Tablet 650 MG PO (11:26)
[2023-08-01 16:38] VITALS: BP 107/66; PULSE 90; RESP 18; TEMP 37.1; O2SAT 100
[2023-08-01 20:15] VITALS: BP 102/50; PULSE 90; RESP 16; TEMP 36.6; O2SAT 100
[2023-08-02 05:28] VITALS: BP 105/62; PULSE 87; RESP 16; TEMP 37; O2SAT 100
[2023-08-02 08:06] VITALS: BP 101/69; PULSE 100; RESP 16; TEMP 36.9; O2SAT 100
--- NOTE | 2023-08-02 09:02 | PCM.PN.SRG ---
Subjective Subjective Patient is doing much better today. She reports tolerating clears. She is passing flatus and having bowel movements with no nausea or vomiting or abdominal pain. Objective Data Objective Data Vital Signs: Vital Signs Temp Pulse Resp BP Pulse Ox O2 Del Method 98.4 F 100 16 101/69 100 Room Air 08/02/23 08:06 08/02/23 08:06 08/02/23 08:06 08/02/23 08:06 08/02/23 08:06 08/02/23 08:06 Oxygen Delivery Method Room Air Weight: 118 lb 6.4 oz Body Mass Index (BMI) 20.9 Intake & Output: Intake and Output for Last 24 Hours 07/31/23 08/01/23 08/02/23 23:59 23:59 23:59 Intake Total 2288.33 / 2288.33 2641.59 / 2641.59 Output Total 2900 / 2900 600 / 600 Balance -611.67 / -611.67 2041.59 / 2041.59 Lab / Micro Data 07/31/23 05:29 07/31/23 05:29 Radiography Diagnostic Testing: Radiology Impression Small Bowel X-Ray 08/01/23 08:00 IMPRESSION: No evidence of bowel obstruction. Normal transit time.. Electronically Signed: Krish Stone MD at 10:40 EST , Physical Exam Const oriented x3 and no apparent distress Resp normal respiratory effort GI normal to inspection, nondistended, normoactive bowel sounds Assessment & Plan Assessment/Plan (1) Small bowel obstruction: PLAN: Patient small bowel obstruction seems to have resolved. Patient is tolerating clears and passing gas. She has no abdominal pain. NG was removed yesterday. I will advance her to regular diet today and as long as she tolerates that I will discharge her home. Jessee Ferraro MD Pager: [facility] [address] [place] [address], [address] [place] [address] Office:
[2023-08-02] MEDS: Pantoprazole Sodium 40 MG in 0.9% Normal Saline (100mL MB+) 100 ML 330 MG IV (10:45)
[2023-08-02] MEDS: 0.9% Saline Lock 10 ML Syringe IV (10:45)
[2023-08-02] MEDS: Acetaminophen 325 MG Tablet 650 MG PO (10:51)
--- NOTE | 2023-08-02 12:49 | PCM.DC.SUM ---
Providers Date of Admission: 07/31/23 Primary Care Physician: Shahnaz Fernandez [employer] Reason For Visit: SMALL BOWEL OBSTRUCTION Diagnosis Discharge Diagnosis (1) Small bowel obstruction: Status: Acute Code(s): K56.609 - Unspecified intestinal obstruction, unspecified as to partial versus complete obstruction Plan: Patient small bowel obstruction seems to have resolved. Patient is tolerating clears and passing gas. She has no abdominal pain. NG was removed yesterday. I will advance her to regular diet today and as long as she tolerates that I will discharge her home. Jessee Ferraro MD Pager: [facility] [address] [place] [address], [address] [place] [address] Office: Medications at Discharge Home Medications drospirenone 3 mg-estetrol 14.2 mg (28) tablet (Nextstellis) See Rx Instructions PO .COMPLEX control #28 tabs 05/07/23 Hospital Course Operations None Procedures None Summary of Care Provided Hospital Course: The patient was admitted after CT scan showed small bowel obstruction. Following day she had attempted small bowel follow-through but she was unable to tolerate and got nauseous and vomited. The NG was placed back to suction. The following day she was actually having bowel movements and passing gas and her abdomen was nontender and she was noted try small bowel follow-through again. We tried another small bowel follow-through the following day and it went through without any interruption. That afternoon the NG was removed and she was started on clears. She tolerated clears well with no abdominal pain or nausea or vomiting. She was advanced to a normal diet the following morning and after tolerating that she was discharged home. Weight / BMI Weight Weight: 118 lb 6.4 oz Body Mass Index (BMI) 20.9 ABG / Lab / Microbiology Data 07/31/23 05:29 07/31/23 05:29 D/C Instructions Discharge Diet: Light diet - advance as tolerated Discharge Activity: Return to Normal Activity May resume sexual activity in: No Restrictions Weight Bearing Status: Weight bearing as tolerated Call your doctor if your incision/area has: Increased Pain/ Swelling Call your doctor if you observe: Inability to have a bowel movement Please Follow Up With: Jessee Ferraro MD When: Follow up as needed. [phone] Meaningful Use Info Meaningful Use Diagnoses (Choose all that apply): None applicable Discharge Plan Admission Admit Date/Time: 07/31/23 02:24 Attending Provider: Jessee Ferraro Primary Care Provider: Shahnaz Fernandez NP Discharge Orders/Prescriptions Prescriptions: Continued Nextstellis 3 mg- 14.2 mg (28) tablet See Rx Instructions PO .COMPLEX Qty: 28 12RF Rx Instructions: take 1-PINK tablet once daily for 24 days/days 1-24 of cycle; take 1-WHITE tablet once daily for 4 days/days 25-28 of cycle. PO Referrals / Follow Up: Shahnaz Fernandez NP, [employer] [Primary Care Provider] - Disposition Disposition (needs filled in before D/C Order can be placed): Home, Self Care
[2023-08-02 13:09] VITALS: BP 95/62; PULSE 89; RESP 16; TEMP 36.8; O2SAT 95
== END 2023-08-02 14:23 | disposition home or self-care (01) | DRG 390 ==
LOC: ED 21:57 → MS3 07-31 02:30
PROVIDERS: Admitting Provider Surgery; Emergency Provider Student in an Organized Health Care Education/Training Program; PCP Nurse Practitioner Family; Referring Provider Surgery; Visit Provider Surgery
DX: K56.609 Unspecified intestinal obstruction, unspecified as to partial versus complete obstruction (principal)
CPT/HCPCS: 74018; 74177; 74250; 80048; 80053; 81001; 83690; 84702; 85025; 93005; 94668; 97802; 99285; J7030; Q9967; A4216; J2405

== ENCOUNTER 2023-08-08 17:22 | Emergency (ER) | payer BC, SELFPAY ==
[2023-08-08 17:24] VITALS: BP 129/90; PULSE 75; RESP 18; TEMP 36.1; O2SAT 100; BMI 20.1
--- NOTE | 2023-08-08 17:39 | CT_ITS ---
EXAM: CT ABDOMEN AND PELVIS WITH INTRAVENOUS CONTRAST CLINICAL INDICATION: SBO -- IV PO Contrast TECHNIQUE: Helically acquired images were obtained of the abdomen and pelvis with intravenous contrast. This CT exam was performed using one or more of the following dose reduction techniques: automated exposure control, adjustment of the mA and/or kV according to patient size, and/or use of iterative reconstruction technique. CONTRAST: Oral and amp; IV Gastrografin and amp; 100mL Isovue-370 RADIATION DOSE: CTDIvol = 6.64 mGy, DLP = 312.43 mGy-cm COMPARISON: 3..24 FINDINGS: LOWER THORAX: Unremarkable. Lung bases are clear. No cardiomegaly. No significant pericardial effusion. ABDOMEN: LIVER: Stable hypodensity in the right lobe of the liver. GALLBLADDER AND BILE DUCTS: Unremarkable. No calcified gallstones. No gallbladder distention or wall edema. No intra- or extrahepatic biliary ductal dilation. PANCREAS: Unremarkable. No focal cystic or solid mass. SPLEEN: Unremarkable. Normal size without focal cystic or solid mass. ADRENALS: Unremarkable. No nodules. KIDNEYS AND URETERS: Unremarkable. Normal renal size and position. No hydronephrosis. STOMACH AND BOWEL: Unremarkable. No stomach or bowel distention. No focal inflammatory change. PELVIS: APPENDIX: No evidence of acute appendicitis. BLADDER: Unremarkable. REPRODUCTIVE: Unremarkable as visualized. No mass. ABDOMEN and PELVIS: INTRAPERITONEAL SPACE: Unremarkable. No ascites or other fluid collection. No free air. BONES/JOINTS: Unremarkable. No suspicious lytic or blastic abnormality. SOFT TISSUES: Umbilical hernia containing fat. VASCULATURE: Unremarkable. Abdominal aorta is non-dilated. LYMPH NODES: Unremarkable. No enlarged lymph nodes. CT/Abdomen/Pelvis WITH Contrast IMPRESSION: No acute findings in the abdomen or pelvis. Electronically Signed: Sheng Aguilar MD at 20:02 EDT ,
--- NOTE | 2023-08-08 17:39 | EDS_ITS ---
HPI History of Present Illness Chief Complaint: Abd Pain Informant: patient and parent Narrative Narrative: 33-year-old female presenting to the emergency room with a chief complaint of abdominal fullness. Patient was recently admitted for a first-time small bowel obstruction which resolved with NG decompression. She was followed in the hospital with Dr. Ferraro. Patient has a history of 1 prior . She notes a recent unintentional weight loss due to pain medication use/side effects from a broken leg. Patient states that she felt pretty good on Wednesday. Yesterday she began to feel fullness. She states she is not having any nausea or vomiting but just the same sensation that she could be developing a SBO again. [facility] Medical History Gestational diabetes mellitus (GDM) Hx of thyroiditis Infertility Right ankle instability Tibial fracture Home Medications drospirenone 3 mg-estetrol 14.2 mg (28) tablet ([facility]) See Rx Instructions PO .COMPLEX control #28 tabs 05/07/23 [Rx Last Taken Unknown] Allergy/AdvReac Type Severity Reaction Status Date / Time Sulfa (Sulfonamide Allergy Mild blisters Verified 08/08/23 17:23 Antibiotics) Family History Grandfather Hypertension Surgical History History of bilateral salpingectomy History of mandibular surgery Social History Smoking Status: Never smoker alcohol intake: never substance use type: does not use caffeine: Yes what type of physical activity do you participate in: none seatbelt use: always do you feel safe at home: Yes additional social history: [employer] 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 Constitutional Constitutional ED: Denies chills or weight loss Eyes Eyes: Denies change in vision or diplopia ENT ENT ED: Denies ear pain, rhinorrhea or sore throat Cardiovascular Cardiovascular: Denies chest pain, orthopnea, palpitations or racing heartbeat Respiratory/Chest Respiratory/Chest: Denies cough, dyspnea or orthopnea Gastrointestinal Gastrointestinal: Reports other Details: Abdominal fullness ; Denies abdominal pain, diarrhea, nausea or vomiting Genitourinary Genitourinary ED: Denies dysuria, hematuria or urinary frequency Musculoskeletal Musculoskeletal: Denies arthralgias or myalgias Integumentary Denies abscess or rash Neurologic Neurologic: Denies headache(s) or weakness Psychiatric Psychiatric: Denies anxiety, depression, suicidal ideation or suicidal thoughts Endocrine Endocrinology: Denies polydipsia, polyphagia or polyuria Allergic/Immunologic Allergic/Immunologic ED: Denies mouth swelling, tongue swelling or urticaria EXAM Physical Exam Const Vital Signs: 08/08/23 17:24 Temperature 97 F L Temperature Source Temporal Pulse Rate 75 Respiratory Rate 18 Blood Pressure 129/90 H Blood Pressure Mean 103 Pulse Ox 100 Oxygen Delivery Method Room Air Positive well nourished and well developed General Appearance ED: well developed HEENT Reports normocephalic, head/scalp atraumatic and moist mucous membranes Eyes PERRL and EOMs intact bilaterally Neck no lymphadenopathy, supple and no JVD Resp normal respiratory effort and clear to auscultation bilaterally Cardio regular rate, regular rhythm and no murmurs GI GI Narrative: I hear proximal bowel sounds. The abdomen is still soft nontender. Palpation: soft; Negative for tender or mass Back/Spine no CVA tenderness and normal ROM Extremity normal to inspection General Extremety ED: Negative for edema General Extremity: Negative for edema Neuro oriented x3 and CN's II-XII intact bilaterally Sensorium / Orientation: alert Motor Exam: strength 5/5 throughout Psych mental status grossly normal Mood & Affect: Negative for depressed or tearful Skin no rashes or lesions noted and no wounds Discharge Plan Triage Chief Complaint: Abd Pain ED Provider: Candido Jasso Dx/Rx/DC Orders Prescriptions: No Action Nextstellis 3 mg- 14.2 mg (28) tablet See Rx Instructions PO .COMPLEX Qty: 28 12RF Rx Instructions: take 1-PINK tablet once daily for 24 days/days 1-24 of cycle; take 1-WHITE tablet once daily for 4 days/days 25-28 of cycle. PO Primary Care Provider: Shahnaz Fernandez NP Referrals: Shahnaz Fernandez NP, [facility] [Primary Care Provider] -
[2023-08-08 17:53] LABS: Absolute Lymphocyte Count 1.95 X10^3/uL (0.83-4.51); Absolute Neutrophil Count 4.6 X10^3/uL (2.0-7.7); Basophil# 0.02 X10^3/uL; Basophil% 0.3 % (0-1); Eosinophil# 0.01 X10^3/uL; Eosinophils% 0.1 % (0-5); Hematocrit 40.9 % (37-47); Hemoglobin 13.2 g/dL (12.0-15.0); Lymphocyte # 1.95 X10^3/ul (0.83-4.51); Lymphocyte % 28.3 % (19-41); Mean Corp Hgb Conc 32.3 g/dL (32-36); Mean Corpuscular Hgb 28.5 pg (27.0-32.0); Mean Corpuscular Volume 88.3 fL (81-99); Mean Platelet Vol. 8.8 fl (6.2-12.0); Monocyte# 0.32 X10^3/uL; Monocyte% 4.6 % (0-10); NRBC Flagged by Analyzer 0 % (0-5); Neutrophil # 4.58 X10^3/uL (2.7-7.7); Neutrophil % 66.4 % (47-70); Platelet Count 293 K/mm3 (150-450); RBC Distribution Width CV 12.4 % (11.6-14.6); RBC Distribution Width SD 39.8 fl (35.1-43.9); Red Blood Count 4.63 M/mm3 (4.2-5.4); White Blood Count 6.9 K/mm3 (4.4-11.0)
--- OUTSIDE RECORDS SUMMARY | 2023-08-08 17:58 | XMS RPT_ITS | CCD ---
Author Name Unknown Address [address] [place] [address] Organization [facility] Care Team Providers Care Manager Life Insurance Name Role Phone SCARLETT VIZCAINO CNP Consulting Unavailable SAUMYA HENLEY CNP Attending SAUMYA Murillo CNP Primary Care SAUMYA Murillo CNP Admitting Unavailabl e PROVIDER, UNKNOWN Consulting Unavailable PROVIDER, UNKNOWN Consulting Unavailable Allergies Allergy Classification Reported Allergen(s) Allergy Type Date of Onset Reaction(s) Facility (1 source) Sulfonamides (Antibiotic) Drug allergy (disorder) [facility] Repository Problems Problem Classification Problem Date Documented Da te Episodic/Chronic Genitourinary symptoms and ill-defined conditions (1 source) Dysuria; Translations: [Dysuria] Onset: 09-18-2022 Episodic Results Test Name Value Interpretation Reference Range Facil ity Encounters Encounter Date Encounter Type Care Provider Facility Start: 09-18-2022 End: 09-18-2022 ambulatory SCARLETT VIZCAINO [facility] Payers Date Payer Category Payer Unknown [id number] 1990 Unknown [id number] Summary Purpose Family History No Family History Records FoundNo Family History Records FoundNo Family History Records FoundNo Family History Records Found Advance Directives No Advanced Directives Records FoundNo Advanced Directives Records FoundNo Advanced Directives Records FoundNo Advanced Directives Records Found Additional Source Comments INFORMATION SOURCE (unrecogn ized section and content) DATE CREATED AUTHOR AUTHOR'S ORGANIZ ATION 06/01/2020 [facility] DATE CREATED AUTHOR AUTHOR'S ORGANIZ ATION 09/21/2022 [facility] DATE CREATED AUTHOR AUTHOR'S ORGANIZ ATION [...] BE BASED ON THE PRIMARY CLINICAL RECORDS. [facility] [employer] [facility]. provides no warranty or guarantee of the accuracy or completeness of information in this document.
[2023-08-08 18:09] LABS: Internal QC Validated? YES +Cl - CLEAR BKGD; Pregnancy, Serum, hCG Quali. NEGATIVE Negative
[2023-08-08 18:14] LABS: AST(SGOT) 9 U/L (15-37); Alanine Aminotransfer ALT/SGPT 16 U/L (13-56); Albumin, Serum 3.8 g/dL (3.2-5.0); Alkaline Phosphatase 80 U/L (45-117); Anion Gap 7 (5-15); BUN 9 mg/dL (7-18); BUN/Creat Ratio 14.1 RATIO (10-20); Bilirubin, Direct 0.16 mg/dL (0.00-0.30); Calcium,Total 9.1 mg/dL (8.5-10.1); Chloride 105 mmol/L (98-107); Creatinine, Serum 0.64 mg/dL (0.55-1.02); EST Glomerular Filtration Rate 112 mL/min (>60); Est Glom Filt Rate - Afr Amer 136 mL/min (>60); Estimated Creatinine Clearance 99.89 ml/min; Globulin 3.9 g/dL (2.2-4.2); Glucose 101 mg/dL (74-106); Lipase 18 U/L (13-75); Protein, Total 7.7 g/dL (6.4-8.2); Sodium Level 140 mmol/L (136-145)
[2023-08-08 19:22] VITALS: BP 108/69; PULSE 88; RESP 16; O2SAT 100
[2023-08-08 21:00] VITALS: BP 101/73; PULSE 70; RESP 15; O2SAT 99
[2023-08-08 21:33] VITALS: BP 118/71; PULSE 76; RESP 16; TEMP 37.1; O2SAT 99
== END 2023-08-08 21:35 | disposition home or self-care (01) ==
PROVIDERS: Emergency Provider Emergency Medicine; PCP Nurse Practitioner Family; Visit Provider Emergency Medicine
DX: R10.9 Unspecified abdominal pain (principal); Z79.3 Long term (current) use of hormonal contraceptives
CPT/HCPCS: 74177; 80048; 80076; 83690; 84703; 85025; 99283; Q9967; A4216

== ENCOUNTER → 2023-10-13 | Outpatient (CLI) | payer BC, SELFPAY ==
[2023-10-13 16:50] LABS: T4 Free Direct 0.89 ng/dL (0.76-1.46)
[2023-10-15 04:07] LABS: Thyroid Peroxidase AB < 9 IU/mL (0-34)
== END | disposition home or self-care (01) ==
LOC: LAB 15:53
PROVIDERS: PCP Nurse Practitioner Family; Referring Provider Nurse Practitioner Women's Health; Visit Provider Nurse Practitioner Women's Health
DX: R53.83 Other fatigue (principal); Z13.29 Encounter for screening for other suspected endocrine disorder; Z13.21 Encounter for screening for nutritional disorder
CPT/HCPCS: 36415; 82306; 84439; 84443; 86376

== ENCOUNTER → 2024-03-10 | Outpatient (CLI) | payer BC, SELFPAY ==
[2024-03-10 11:04] LABS: Mucous, Urine 0 SEEN /hpf (<or=2+)
[2024-03-10 11:09] LABS: Color, Urine Yellow (Yellow); Glucose, Dipstick Normal (Normal); Ketone-Dipstick Negative (Negative); Leukocyte Esterase-Dipstick 25 /ul (Negative); Nitrite-Dipstick Negative (Negative); Occult Blood-Urine 25 /ul (Negative); Protein-Dipstick 30 mg/dl (Negative); Urine Bilirubin Dipstick Negative (Negative); Urine Clarity Sl. Cloudy (Clear); Urine Urobilinogen Normal (Normal)
[2024-03-10 11:15] LABS: Bacteria 2+ /hpf (None Seen); Squamous Epithelial Cells - UA 5-10 SEEN /hpf (5-10); Transitional Epithelial - Ur 0-5 SEEN /hpf (0-5); White Blood Cells 5-10 SEEN /hpf (0-5)
[2024-03-10 11:16] LABS: Red Blood Cells-Urine 0-5 SEEN /hpf (0-5)
== END | disposition home or self-care (01) ==
LOC: LABSPEC 10:54
PROVIDERS: PCP Nurse Practitioner Family; Referring Provider Physician Assistant Surgical; Visit Provider Physician Assistant Surgical
DX: R30.0 Dysuria (principal)
CPT/HCPCS: 81001; 87077; 87086; 87088

== ENCOUNTER → 2024-04-24 | Outpatient (CLI) | payer BC, SELFPAY ==
[2024-04-24 11:42] LABS: AST(SGOT) 19 U/L (15-37); Alanine Aminotransfer ALT/SGPT 26 U/L (13-56); Cholesterol 127 mg/dL (200); High Density Lipoprotein 65 mg/dL; Triglycerides 50 mg/dL; Very Low Density Lipoprotein 10 mg/dL (5-40)
== END | disposition home or self-care (01) ==
LOC: MTLAB 08:38
PROVIDERS: PCP Nurse Practitioner Family; Referring Provider Dermatology Pediatric Dermatology; Visit Provider Dermatology Pediatric Dermatology
DX: L70.0 Acne vulgaris (principal); Z79.899 Other long term (current) drug therapy
CPT/HCPCS: 36415; 80061; 84450; 84460

== ENCOUNTER → 2024-08-24 | Outpatient (CLI) | payer BC, SELFPAY ==
[2024-08-24 10:50] LABS: AST(SGOT) 77 U/L (<=31); Alanine Aminotransfer ALT/SGPT 80 U/L (<=34); Cholesterol 130 mg/dL (<=200); High Density Lipoprotein 42 mg/dL; Low Density Lipoprotein Calc. 67 mg/dL; Triglycerides 105 mg/dL; Very Low Density Lipoprotein 21 mg/dL (5-40)
[2024-08-25 08:09] LABS: LDL, Direct 120295 67 mg/dL (0-99)
== END | disposition home or self-care (01) ==
LOC: MTLAB 07:52
PROVIDERS: PCP Nurse Practitioner Family; Referring Provider Dermatology; Visit Provider Dermatology
DX: L70.0 Acne vulgaris (principal); Z79.899 Other long term (current) drug therapy
CPT/HCPCS: 36415; 80061; 83721; 84450; 84460

== ENCOUNTER → 2024-09-08 | Outpatient (CLI) | payer BC, SELFPAY ==
[2024-09-08 10:48] LABS: AST(SGOT) 64 U/L (<=31); Alanine Aminotransfer ALT/SGPT 91 U/L (<=34)
== END | disposition home or self-care (01) ==
LOC: MTLAB 07:12
PROVIDERS: PCP Nurse Practitioner Family
DX: L70.0 Acne vulgaris (principal)
CPT/HCPCS: 36415; 84450; 84460

== ENCOUNTER → 2024-10-13 | Outpatient (CLI) | payer BC, SELFPAY ==
[2024-10-13 18:01] LABS: AST(SGOT) 23 U/L (<=31); Alanine Aminotransfer ALT/SGPT 18 U/L (<=34)
== END | disposition home or self-care (01) ==
LOC: MTLAB 14:02
PROVIDERS: PCP Nurse Practitioner Family; Referring Provider Dermatology Pediatric Dermatology; Visit Provider Dermatology Pediatric Dermatology
DX: L70.0 Acne vulgaris (principal); Z79.899 Other long term (current) drug therapy
CPT/HCPCS: 36415; 84450; 84460

== ENCOUNTER 2024-12-24 00:09 | Emergency (ER) | payer BC, SELFPAY ==
[2024-12-24 00:10] VITALS: BP 116/83; PULSE 88; RESP 18; TEMP 36.9; O2SAT 100; BMI 23.0
--- NOTE | 2024-12-24 00:40 | EKG12_ITS ---
Test Reason : DYSRHYTHMIA Blood Pressure : */* mmHG Vent. Rate : 71 BPM Atrial Rate : 71 BPM P-R Int : 146 ms QRS Dur : 78 ms QT Int : 436 ms P-R-T Axes : 73 54 63 degrees QTcB Int : 473 ms Normal sinus rhythm with sinus arrhythmia Normal ECG Confirmed by SINDY BHATTI MD ([id number]), social media editor CASSY BELCHER ([id number]) on 12/25/2024 8:27:58 AM Referred By: TL Confirmed By: SINDY BHATTI MD
--- OUTSIDE RECORDS SUMMARY | 2024-12-24 00:48 | XMS RPT_ITS | CCD ---
Author Organization [facility] Care Team Providers Care Helpdesk Specialist Name Role Phone Jim AN, SPRING SETTER-C Scarlett Primary Care Provider Jim AN, SPRING SETTER-C Scarlett Referring Provider [phone] Maynor GOULD, LUIS FERNANDO Macario Attending Provider Mary Lou AN, SPRING SETTER-C Sarah Attending Provider Jim AN, SPRING SETTER-C Scarlett Primary Care Provider Jim AN, SPRING SETTER-C Scarlett Referring Provider Mary Lou AN SPRING SETTER-C Sarah Attending Provider [phone] Ronnie AN, SPRING SETTER-C Huseyin Jaffe Attending Provider Dr. Lina Oneil Attending Provider Jim AN, SPRING SETTER-C Scarlett Primary Care Provider Jim AN, SPRING SETTER-C Scarlett Referring Provider [phone] Jim AN, SPRING SETTER-C Scarlett Primary Care Provider [phone] Jim AN, SPRING SETTER-C Scarlett Referring Provider Dr. Vicente Cabrera Emergency Provider Dr. Jessee Ferraro Admit Provider Dr. Jessee Ferraro Attending Provider [phone] Dr. Jessee Ferraro Referring Provider Dr. Jessee Ferraro Other Provider Jim AN, SPRING SETTER-C Scarlett Primary Care Provider [phone] Jim SPRING SETTER, SPRING SETTER-C Scarlett Referring Provider [phone] Dr. Lina Oneil Attending Provider [phone] Dr. Vicente Cabrera Emergency Provider Ronan, Dr. Hooks Admit Provider Ronan, Dr. Hooks Attending Provider Ronan, Dr. Hooks Referring Provider Ronan, Dr. Hooks Other Provider Dr. Quinn Bowie Attending Provider [phone] SCARLETT VIZCAINO CNP Consulting Unavailable YANY ROTH MD Attending Unavailable YANY ROTH MD Primary Care Unavailable YANY ROTH MD Admitting Unavailable PROVIDER, UNKNOWN Consulting Unavailable PROVIDER, UNKNOWN Consulting Unavailable Jolanta [facility], Huseyin Rocha Unavailable Jim SPRING SETTER-C, Scarlett Primary Care Provider Praveen [facility], Dr. Trujillo Attending Provider Praveen [facility], Dr. Trujillo Referring Provider ISABELLA DOYLE Attending Provider ISABELLA DOYLE Referring Provider Juan Manuel [facility], Dr. Haddad Attending Provider Juan Manuel [facility], Dr. Haddad Referring Provider Ronnie Morton Referring Unavailable Jim SPRING SETTER, Scarlett Primary Care Unavailable Ronnie Morton Attending Unavailable LOLA LEVIN Attending Unavailable KODZ, LOLA Referring Unavailable Jim SPRING SETTER, Scarlett Primary Care Unavailable Jim SPRING SETTER, Scarlett Primary Care Unavailable Sarah Barreto Attending Unavailable Jim SPRING SETTER, Scarlett Referring Unavailable Jessee Ferraro Attending Unavailable Jim SPRING SETTER, Scarlett Primary Care Unavailable Jim SPRING SETTER, Scarlett Referring Unavailable Jim SPRING SETTER, Scarlett Primary Care Unavailable Jim SPRING SETTER, Scarlett Referring Unavailable Orlando Spring Attending Unavailable Jim SPRING SETTER, Scarlett Primary Care Unavailable Catie Zambrano Attending Unavailable Catie Zambrano Referring Unavailable Jim SPRING SETTER, Scarlett Primary Care Unavailable Orlando Spring Attending Unavailable Moi Springy Referring Unavailable Jim SPRING SETTER, Scarlett Primary Care Unavailable Catie Zambrano Attending Unavailable Catie Zambrano Referring Unavailable VIRIDIANA PRITCHARD Attending Unavailable HUSEYIN STOVER Primary Care Huseyin Johnson Primary Care Provider Allergies Allergy Classification Reported Allergen(s) Allergy Type Date of Onset Reaction(s) Facility (13 sources) Sulfonamides (Antibiotic); Translations: [Sulfa (Sulfonamide Antibiotics)] Allergy to substance 2 [facility] (1 source) Sulfonamides (Antibiotic) Drug allergy (disorder) [facility] Repository Medications Current Medications Medication Drug Class(es) Dates Sig (Normalized) Sig (Original) busPIRone hydrochloride 7.5 mg oral tablet (3 sources) Start: 02-14-2024 take 1 tablet by mouth twice daily Buspirone 7.5 mg tablet Active 7.5 mg PO TWICE A DAY February 14, 2024 12:00am fluconazole 150 mg oral tablet (20 sources) Azole Antifungal Start: 02-14-2024 take 1 tablet by mouth once Fluconazole 150 mg tablet Active 150 mg PO ONCE 1 February 14, 2024 10:04am Start: 03-30-2022 End: 01-18-2023 Fluconazole (Diflucan) 150 m g tablet Discontinued 150 mg PO .COMPLEX March 30, 2022 8:58am January 18, 2023 2:29pm 150 mg orally today and again in 3 days then weekly for 6 months; Start: 03-28-2022 End: 03-30-2022 take 1 tablet by mouth once Fluconazole (Diflucan) 150 mg tablet Discontinued 150 mg PO ONCE March 28, 2022 12:00am March 30, 2022 8:58am ISOtretinoin 30 mg oral capsule (1 source) Retinoid Start: 09-18-2024 take 1 capsule by mouth once daily ISOtretinoin (ACCUTANE) 30 mg capsule Take one capsule by mouth once daily with fatty food. 09/18/2024 Active spironolactone 100 mg oral tablet (1 source) Aldosterone Antagonist Start: 10-17-2024 take 1 tablet by mouth at bedtime spironolactone (ALDACTONE) 100 mg tablet TAKE ONE TABLET BY MOUTH AT BEDTIME with water 10/17/2024 Active Completed/Discontinued Medications Medication Drug Class(es) Dates Sig (Normalized) Sig (Original) acetaminophen 325 mg / HYDROcodone bitartrate 5 mg oral tablet (8 sources) Opioid Agonist Start: 05-18-2023 End: 07-31-2023 Hydrocodone-Acetami nophen 5-325 mg tablet Discontinued 1 {tbl} PO EVERY 6 HOURS NEEDED as needed for Pain 17 10May 18, 2023 July 31, 2023 4:22am Start: 05-18-2023 End: 07-31-2023 take 1 tablet by mouth every six hours as needed Hydrocodone-Acetaminophen Discontinued 1 TABLET PO EVERY 6 HOURS NEEDED 17 10May 18, 2023 July 31, 2023 4:22am acetaminophen 325 mg / oxyCODONE hydrochloride 5 mg oral tablet (10 sources) Opioid Agonist Start: 07-06-2020 End: 07-13-2020 Oxycodone-Acetaminophen 1 TABLET tablet Discontinued 1 - 2 {tbl} PO EVERY 6 HOURS NEEDED as needed for Pain 15 July 06, 2020 July 12, 2020 1:00am July 13, 2020 1:03am Start: 07-06-2020 End: 07-13-2020 take 1 tablet by mouth every six hours as needed Oxycodone-Acetaminophen Discontinued 1 - 2 TABLET PO EVERY 6 HOURS NEEDED 15 July 06, 2020 July 13, 2020 1:03am aspirin 81 mg chewable tablet (10 sources) Platelet Aggregation Inhibitor, Nonsteroidal Anti-inflammatory Drug Start: 06-20-2020 End: 03-12-2021 take 1 tablet by mouth once daily Aspirin 81 MG tablet,chewable Discontinued 81 mg PO DAILY June 20, 2020 1:00am March 12, 2021 9:31am azithromycin 250 mg oral tablet (10 sources) Macrolide Antimicrobial Start: 08-30-2021 End: 12-15-2021 Azithromycin (Zithromax Z-Hudson) 250 mg tablet Discontinued 0 PO .COMPLEX August 30, 2021 12:00am December 15, 2021 8:46am For 250 mg dose pack: take 500 mg today (day 1), then 250 mg for 4 days (days 2-5) PO ciprofloxacin 500 mg oral tablet (10 sources) Quinolone Antimicrobial Start: 05-29-2013 End: 02-07-2020 take 1 tablet by mouth twice daily Ciprofloxacin Hcl 500 MG tablet Discontinued 500 mg PO TWICE A DAY May 29, 2013 1:00am February 07, 2020 3:38pm Drospirenone-Ethin yl Estradiol (10 sources) Progestin, Estrogen Start: 03-12-2021 End: 05-05-2021 Drospirenone-Ethiny l Estradiol (Ashli (28)) 3-0.03 mg tablet Discontinued 1 {tbl} PO DAILY March 12, 2021 12:00am May 05, 2021 12:35pm take active pills only for continuous cycling Start: 03-12-2021 End: 05-05-2021 Drospirenone-Ethinyl Estradi ol (Ashli (28)) 3-0.03 mg tablet Discontinued 1 TABLET PO DAILY March 11, 2021 11:00pm May 05, 2021 11:35am take active pills only for continuous cycling Start: 03-12-2021 End: 05-05-2021 Drospirenone-Ethinyl Estradi ol (Ashli (28)) 3-0.03 mg tablet Discontinued 1 TABLET PO DAILY March 12, 2021 12:00am May 05, 2021 12:35pm take active pills only for continuous cycling Drospirenone-Estetrol (Nextstellis) 3 mg- 14.2 mg (28) tablet (9 sources) Start: 05-07-2023 End: 02-14-2024 take 25-28 tablets by mouth once daily Drospirenone-Estetrol (Nextstellis) 3 mg- 14.2 mg (28) tablet Discontinued 0 PO .COMPLEX May 07, 2023 1:00am February 14, 2024 10:00am take 1-PINK tablet once daily for 24 days/days 1-24 of cycle; take 1-WHITE tablet once daily for 4 days/days 25-28 of cycle. PO Start: 05-07-2023 take 25-28 tablets b y mouth once daily Drospirenone-Estetrol (Nextstellis) 3 mg- 14.2 mg (28) tablet Active 0 PO .COMPLEX May 07, 2023 1:00am take 1-PINK tablet once daily for 24 days/days 1-24 of cycle; take 1-WHITE tablet once daily for 4 days/days 25-28 of cycle. PO Start: 05-07-2023 take 25-28 tablets b y mouth once daily Drospirenone-Estetrol (Nextstellis) 3 mg- 14.2 mg (28) tablet Active 0 PO .COMPLEX May 07, 2023 12:00am take 1-PINK tablet once daily for 24 days/days 1-24 of cycle; take 1-WHITE tablet once daily for 4 days/days 25-28 of cycle. PO Norgestimate-Ethinyl Estradiol (20 sources) Progestin, Estrogen Start: 01-18-2023 End: 05-07-2023 take 1 tablet by mouth once daily Norgestimate-Ethinyl Estradiol (Sprintec (28)) 0.25-35 mg-mcg tablet Discontinued 1 {tbl} PO daily January 18, 2023 2:35pm May 07, 2023 5:03pm Take active pills only for continuous cycling Start: 01-18-2023 End: 05-07-2023 take 1 tablet by mouth once daily Norgestimate-Ethinyl Estradiol (Sprintec (28)) 0.25-35 mg-mcg tablet Discontinued 1 TABLET PO daily January 18, 2023 2:35pm May 07, 2023 5:03pm Take active pills only for continuous cycling Start: 01-18-2023 End: 05-07-2023 take 1 tablet by mouth once daily Norgestimate-Ethinyl Estradiol (Sprintec (28)) 0.25-35 mg-mcg tablet Discontinued 1 TABLET PO daily January 18, 2023 1:35pm May 07, 2023 4:03pm Take active pills only for continuous cycling Start: 01-11-2023 End: 01-18-2023 take 1 tablet by mouth once daily Norgestimate-Ethinyl Estradiol (Sprintec (28)) 0.25-35 mg-mcg tablet Discontinued 1 {tbl} PO daily January 11, 2023 10:47am January 18, 2023 2:36pm Take active pills only for continuous cycling Start: 01-11-2023 End: 01-18-2023 take 1 tablet by mouth once daily Norgestimate-Ethinyl Estradiol (Sprintec (28)) 0.25-35 mg-mcg tablet Discontinued 1 TABLET PO daily January 11, 2023 10:47am January 18, 2023 2:36pm Take active pills only for continuous cycling Start: 01-11-2023 End: 01-18-2023 take 1 tablet by mouth once daily Norgestimate-Ethinyl Estradiol (Sprintec (28)) 0.25-35 mg-mcg tablet Discontinued 1 TABLET PO daily January 11, 2023 9:47am January 18, 2023 1:36pm Take active pills only for continuous cycling Start: 12-15-2021 End: 01-11-2023 take 1 tablet by mouth once daily Norgestimate-Ethinyl Estradiol (Sprintec (28)) 0.25-35 mg-mcg tablet Discontinued 1 {tbl} PO daily December 15, 2021 8:56am January 11, 2023 10:47am Take active pills only for continuous cycling Start: 12-15-2021 End: 01-11-2023 take 1 tablet by mouth once daily Norgestimate-Ethinyl Estradiol (Sprintec (28)) 0.25-35 mg-mcg tablet Discontinued 1 TABLET PO daily December 15, 2021 8:56am January 11, 2023 10:47am Take active pills only for continuous cycling Start: 12-15-2021 End: 01-11-2023 take 1 tablet by mouth once daily Norgestimate-Ethinyl Estradiol (Sprintec (28)) 0.25-35 mg-mcg tablet Discontinued 1 TABLET PO daily December 15, 2021 7:56am January 11, 2023 9:47am Take active pills only for continuous cycling Start: 12-15-2021 take 1 tablet by rainer th once daily Norgestimate-Ethinyl Estradiol (Sprintec (28)) 0.25-35 mg-mcg tablet Active 1 TABLET PO daily December 15, 2021 8:56am Take active pills only for continuous cycling Start: 08-19-2021 End: 12-15-2021 Norgestimate-Ethinyl Estradi ol (Sprintec (28)) 0.25-35 mg-mcg tablet Discontinued 1 {tbl} PO daily August 19, 2021 2:46pm December 15, 2021 8:56am Start: 08-19-2021 End: 12-15-2021 take 1 tablet by mouth once daily Norgestimate-Ethinyl Estradiol (Sprintec (28)) 0.25-35 mg-mcg tablet Discontinued 1 TABLET PO daily August 19, 2021 1:46pm December 15, 2021 7:56am Start: 08-19-2021 End: 12-15-2021 take 1 tablet by mouth once daily Norgestimate-Ethinyl Estradiol (Sprintec (28)) 0.25-35 mg-mcg tablet Discontinued 1 TABLET PO daily August 19, 2021 2:46pm December 15, 2021 8:56am Start: 05-05-2021 End: 08-19-2021 Norgestimate-Ethinyl Estradi ol (Sprintec (28)) 0.25-35 mg-mcg tablet Discontinued 1 {tbl} PO daily May 05, 2021 1:00am August 19, 2021 2:46pm Start: 05-05-2021 End: 08-19-2021 take 1 tablet by mouth once daily Norgestimate-Ethinyl Estradiol (Sprintec (28)) 0.25-35 mg-mcg tablet Discontinued 1 TABLET PO daily May 05, 2021 12:00am August 19, 2021 1:46pm Start: 05-05-2021 End: 08-19-2021 take 1 tablet by mouth once daily Norgestimate-Ethinyl Estradiol (Sprintec (28)) 0.25-35 mg-mcg tablet Discontinued 1 TABLET PO daily May 05, 2021 1:00am August 19, 2021 2:46pm lansoprazole 30 mg delayed release oral capsule (20 sources) Proton Pump Inhibitor Start: 07-06-2020 End: 07-22-2020 Lansoprazole 30 MG capsule Discontinued 15 mg PO TWICE A DAY July 06, 2020 1:00am July 22, 2020 11:55am Start: 07-06-2020 End: 07-22-2020 take 15 mg by mouth twice daily Lansoprazole Discontin ued 15 MG PO TWICE A DAY July 06, 2020 1:00am July 22, 2020 11:55am Start: 02-07-2020 End: 07-22-2020 take 1 capsule by mouth once daily Lansoprazole (Prevacid) 30 mg capsule,delayed release(DR/EC) Discontinued 30 mg PO DAILY February 07, 2020 12:00am July 22, 2020 11:55am metroNIDAZOLE 500 mg oral tablet (10 sources) Nitroimidazole Antimicrobial Start: 05-29-2013 End: 02-07-2020 take 1 tablet by mouth every six hours Metronidazole 500 MG tablet Discontinued 500 mg PO EVERY 6 HOURS May 29, 2013 1:00am February 07, 2020 3:38pm naproxen 250 mg oral tablet (10 sources) Nonsteroidal Anti-inflammatory Drug Start: 07-06-2020 End: 07-22-2020 take 250-500 mg by mouth every eight hours as needed for pain Naproxen 250 MG tablet Discontinued 250 - 500 mg PO EVERY 8 HOURS NEEDED as needed for MILD PAIN July 06, 2020 1:00am July 22, 2020 11:55am nitrofurantoin, macrocrystals 25 mg / nitrofurantoin, monohydrate 75 mg oral capsule (3 sources) Nitrofuran Antibacterial Start: 03-10-2024 End: 03-17-2024 take 1 capsule by mouth every twelve hours at mealtime Nitrofurantoin Monohyd/M-Cryst 100 mg capsule Discontinued 1 NMA PO Q12H 14 March 10, 2024 12:00am March 16, 2024 12:00am March 17, 2024 12:07am administer with a meal/food; swallow whole; do not open, crush, dissolve , or chew penicillin v potassium 500 mg oral tablet (9 sources) Start: 03-07-2023 End: 03-17-2023 take 1 tablet by mouth twice daily Penicillin V Potassium 500 mg tablet Discontinued 500 mg PO TWICE A DAY 20 March 07, 2023 12:00am March 16, 2023 12:00am March 17, 2023 12:04am Pnv #[id number] Acid-Omega3 30 mg iron-10 mg iron-1 mg capsule (3 sources) Start: 07-22-2020 End: 05-05-2021 Pnv #[id number] Acid-Omega3 30 mg iron-10 mg iron-1 mg capsule Discontinued NMA PO July 22, 2020 1:00am May 05, 2021 12:35pm Prenatabs FA (10 sources) Start: 06-20-2020 End: 07-22-2020 Prenatabs FA Discontinued 1 {tbl} PO DAILY June 20, 2020 1:00am July 22, 2020 11:55am Start: 06-20-2020 End: 07-22-2020 take 1 tablet by mouth once daily Prenatabs FA Discontinued 1 TABLET PO DAILY June 20, 2020 12:00am July 22, 2020 10:55am Start: 06-20-2020 End: 07-22-2020 take 1 tablet by mouth once daily Prenatabs FA Discontinued 1 TABLET PO DAILY June 20, 2020 1:00am July 22, 2020 11:55am vitamin#30 30 mg iron-10 mg iron-folic acid 1 mg-omg3 capsule (7 sources) Start: 07-22-2020 End: 05-05-2021 vitamin#30 30 mg iron-10 mg iron-folic acid 1 mg-omg3 capsule Discontinued CAP PO July 22, 2020 12:00am May 05, 2021 11:35am Start: 07-22-2020 End: 05-05-2021 vitamin#30 30 mg ir on-10 mg iron-folic acid 1 mg-omg3 capsule Discontinued CAP PO July 22, 2020 1:00am May 05, 2021 12:35pm promethazine hydrochloride 25 mg oral tablet (10 sources) Phenothiazine Start: 05-29-2013 End: 02-07-2020 take 1 tablet by mouth every six hours as needed for nausea Promethazine 25 MG tablet Discontinued 25 mg PO EVERY 6 HOURS NEEDED as needed for Nausea May 29, 2013 1:00am February 07, 2020 3:38pm Problems Active Problems Problem Classification Problem Date Documented Da te Episodic/Chronic Abdominal pain (4 sources) Abdominal pain; Translations: [Unspecified abdominal pain] 08-08-2023 Episodic Diabetes or abnormal glucose tolerance complicating ; childbirth; or the puerperium (20 sources) Abnormal glucose level; Translations: [Abnormal glucose complicating ] 07-22-2020 Episodic Comment on above: needs 3gtt Fracture of lower limb (8 sources) Closed fracture of distal tibia and distal fibula; Translations: [Unspecified fracture of lower end of unspecified tibia, initial encounter for closed fracture] 05-18-2023 Episodic Immunizations and screening for infectious disease (12 sources) Exposure to communicable disease; Translations: [Contact with and (suspected) exposure to pediculosis, acariasis and other infestations] Onset: 11-05-2024 04-22-2020 Episodic Comment on above: no immunity Inflammatory diseases of female pelvic organs (1 source) Acute vaginitis; Translations: [Vaginitis and vulvovaginitis, unspecified] Episodic Intestinal obstruction without hernia (9 sources) Small bowel obstruction; Translations: [Unspecified intestinal obstruction, unspecified as to partial versus complete obstruction] 07-31-2023 Episodic Malaise and fatigue (3 sources) Fatigue; Translations: [Other fatigue] 10-13-2023 Episodic Mycoses (9 sources) Candidiasis of vagina; Translations: [Candidiasis of vagina] 01-18-2023 Episodic Comment on above: recurrent:diflucan w eekly X 6 mo Other complications of ; puerperium affecting management of mother (3 sources) Deliveries by ; Translations: [Encounter for delivery without indication] 08-16-2023 Episodic Other complications of (10 sources) High risk ; Translations: [Supervision of high risk , unspecified, unspecified trimester] 07-22-2020 Episodic Comment on above: PRR - rubella needed with 28w labs, FORTINO 08/12/20 Boy, Girl PC: Freddie, Spouse: Thong Other female genital disorders (10 sources) Abnormal uterine bleeding; Translations: [Abnormal uterine and vaginal bleeding, unspecified] 05-07-2023 Chronic Comment on above: nextellis failed. Mi janna IUD Other female genital disorders (9 sources) Abnormal uterine and vaginal bleeding, unspecified; Translations: [Unspecified disorders of menstruation and other abnormal bleeding from female genital tract] Chronic Other gastrointestinal disorders (1 source) Irritable bowel syndrome; Translations: [Irritable bowel syndrome without diarrhea] Onset: 04-04-2011 04-04-2011 Chronic Other nutritional; endocrine; and metabolic disorders (10 sources) H/O: thyroid disorder; Translations: [Personal history of other endocrine, nutritional and metabolic disease] 05-05-2021 Episodic Comment on above: thyroidit is. Presented 4d after last delivery with heart palpitations and anxiety then was on synthroid. TSH most recently returned to normal. Other and delivery including normal (20 sources) Dichorionic diamniotic twin ; Translations: [Twin , dichorionic/diamnio tic, unspecified trimester] 07-22-2020 Episodic Comment on above: Conceived via transf er of 2 embryos. Plan serial growth US q 4 weeks . echo nl. delivery 38 weeks Genetic testing perf ormed by [facility] low risk. Needs rubella with 28w labs. Other skin disorders (1 source) Acne vulgaris; Translations: [Acne vulgaris] Onset: 10-17-2024 Episodic Other upper respiratory infections (11 sources) Pharyngitis; Translations: [Acute pharyngitis, unspecified] Onset: 11-05-2024 03-07-2023 Episodic Pneumonia (except that caused by tuberculosis or sexually transmitted disease) (2 sources) Pneumonia; Translations: [Pneumonia, unspecified organism] Episodic Polyhydramnios and other problems of amniotic cavity (10 sources) premature rupture of membranes with onset of labor later than 24 hours after rupture; Translations: [ premature rupture of membranes, onset of labor more than 24 hours following rupture, first trimester] 07-22-2020 Episodic Residual codes; unclassified (10 sources) Past history of procedure; Translations: [Personal history of other medical treatment] 04-22-2020 Episodic Comment on above: Nonreactive Residual codes; unclassified (10 sources) History of vaccination; Translations: [Personal history of other drug therapy] 07-22-2020 Episodic Comment on above: 05/20/20 Residual codes; unclassified (10 sources) History of pre-eclampsia; Translations: [Personal history of other complications of , childbirth and the puerperium] 07-22-2020 Episodic Comment on above: Induced at 38w for i ncreased BPs with low platelets. Obtain ROR from [place]. Start baby ASA. Residual codes; unclassified (3 sources) Infertile 07-22-2020 Episodic Comment on above: Both pregnancies via IVF - saw Dr. Felton. Short gestation; low weight; and growth retardation (10 sources) growth restriction; Translations: [ growth restriction] 07-22-2020 Episodic Comment on above: low growth %; weekly NSTs in WP; repeat growth in 4 weeks Thyroid disorders (10 sources) Zach thyroiditis; Translations: [Autoimmune thyroiditis] 06-17-2020 Chronic Viral infection (10 sources) COVID-19; Translations: [Severe acute respiratory syndrome coronavirus 2 (SARS-CoV-2) detected] 07-22-2020 Episodic Comment on above: advised to continue baby asa and growth scans. Cancelled appt 07/01/20 Past or Other Problems Problem Classification Problem Date Documented Da te Episodic/Chronic Anal and rectal conditions (1 source) Anal fissure; Translations: [Anal fissure, unspecified] Onset: 04-04-2011 04-04-2011 Episodic Genitourinary symptoms and ill-defined conditions (4 sources) Dysuria; Translations: [Dysuria] Onset: 04-03-2024 03-10-2024 Episodic Other skin disorders (1 source) Acne; Translations: [Acne, unspecified] Onset: 09-02-2012 09-02-2012 Episodic Unclassified (7 sources) Infertile; Translations: [Infertility] 07-22-2020 NEGATED: Highlighted row has been ruled out!Unclassified (2 sources) No Problem Information Available Results Test Name Value Interpretation Reference Range Facility OV 11-05-2024 CNOV Office Visit ([facility]) DARON DIAL ([id number]) 1990 F Date Time Provider Department 11/05/24 2:30 PM VIRIDIANA PRITCHARD [facility] During your visit today, we recorded the following information about you: Temperature Pulse Respiration Blood pressure 98.7 degrees 85/minute 18/minute 107/69 Weight 55.3 kg Viridiana Pritchard APRN.EMAIL DEVELOPER 11/05/2024 2:59 PM Signed [facility] Subjective Daron Abdiace is a 34 year old female. Patient presents with: Cough: Congestion, ST, hoarse voice x4 days HPI Upper Respiratory Symptoms: - Onset 4 days ago. - Symptoms include cough, ear pain, headache, and sinus congestion. - Reports feeling tired due to congestion-related sleep disturbances. - Initially experienced odynophagia, now resolved. - Describes ear pain as a sensation of fullness rather than sharp pain. - Denies dyspnea. - Recent exposure to strep throat; two children diagnosed over a week ago. Review of Systems Constitutional: (+) fatigue Head: (+) headache Ears/Nose/Mouth/Thro at: (+) ear pain, (+) nasal congestion, (+) hoarseness, (-) odynophagia Respiratory: (+) cough, (-) shortness of breath Objective BP 107/69 Pulse 85 Temp 37.1 ?C (98.7 ?F) Resp 18 Wt 55.3 kg (121 lb 14.6 oz) LMP 07/23/2015 SpO2 98% Physical Exam General: No acute distress. HEENT: Erythema in oropharynx, cervical lymphadenopathy. CV: Heart sounds clear. Resp: Breath sounds clear. {1. Streptococcus exposure (Z20.818) - Recent exposure to streptococcal infection from two children who had strep throat over a week ago. - Rapid strep test performed; results negative. 2. Viral pharyngitis (J02.9) - Symptoms include cough, otalgia, headache, and sinus congestion for approximately four days; no dysphagia currently, but was present previously. - Physical exam reveals clear lung sounds, mild erythema in the oropharynx, and palpable lymphadenopathy. - Negative strep test supports viral etiology. - Recommended supportive care including hydration, rest, and [id number] analgesics as needed. - Patient understands and agrees with the treatment plan. and Recording using [employer] software for draft documentation of the visit was discussed with the patient/authorized uniforms sales representative; all questions welcomed and answered. Patient/authorized uniforms sales representative agreed to proceed MDM Procedures Allergies As of Date: 11/05/2024 Noted Allergy Reaction SULFA DRUGS (SULFA (SULFONAMIDE A*11/05/2024 2 - Rash Comments: Sores around mouth Date Reviewed: 11/05/2024 Reviewed by: Stacy Felix MA - Fully Assessed Reason for Visit: Cough [28] Cmt: Congestion, ST, hoarse voice x4 days Primary Visit Diagnosis:Streptococ cus exposure [Z20.818] Other Visit Diagnosis:Viral pharyngitis [J02.9] Order(s):STREP A MOLECULAR (POC) [6575776] Order #: [id number]. #:[id number] Prescriptions as of 11/05/2024 - ISOtretinoin (ACCUTANE) 30 mg capsule Take one capsule by mouth once daily with fatty food. - spironolactone (ALDACTONE) 100 mg tablet TAKE ONE TABLET BY MOUTH AT BEDTIME with water Problem List As Of Date 11/05/2024 Noted Resolved IBS (irritable bowel syndrome) [K58.9] 04/04/2011 Anal fissure [K60.2] 04/04/2011 Acne [L70.9] 09/02/2012 Encounter Status:Closed by VIRIDIANA PRITCHARD on 11/05/24 Normal [facility] STREP A MOLECULAR (POC)on Procedural Control Valid [facility] Strep A (POCT) Negative Negative [facility] AST(SGOT)on 10-13-2024 AST [Catalytic activity/Vol] 23 U/L Normal <=31 [facility] Comment on above: Performed By: #### L 501.4405, L501.4100 #### [facility] [address], [place], [id number] Alanine Aminotransferas (SGP T)on 10-13-2024 ALT [Catalytic activity/Vol] 18 U/L Normal <=34 [facility] Comment on above: Performed By: #### L 501.4405, L501.4100 #### [facility] [address], [place], [id number] Laboratory - Chemistry and C hemistry - challengeOrdered By: Catie Zambrano on 10-13-2024 AST [Catalytic activity/Vol] 23 U/L <32 [facility] Serum or plasma alanine hong otransferase (ALT) measurementOrdered By: Catie Zambrano on 10-13-2024 ALT [Catalytic activity/Vol] 18 U/L <35 [facility] AST(SGOT)on 09-08-2024 AST [Catalytic activity/Vol] 64 U/L High <=31 [facility] Comment on above: Performed By: #### L 501.4405, L501.4100 #### [facility] [address] [place], [place], [id number] Alanine Aminotransferas (SGP T)on 09-08-2024 ALT [Catalytic activity/Vol] 91 U/L High <=34 [facility] Comment on above: Performed By: #### L 501.4405, L501.4100 #### [facility] [address] [place], [place], [id number] Laboratory - Chemistry and C hemistry - challengeon 09-08-2024 AST [Catalytic activity/Vol] 64 U/L High <32 [facility] Serum or plasma alanine hong otransferase (ALT) measurementon 09-08-2024 ALT [Catalytic activity/Vol] 91 U/L High <35 [facility] LDL, Directon 08-25-2024 Cholesterol in LDL [Mass/Vol] 67 mg/dL Normal 0-99 [facility] Comment on above: Order Comment: Y Result Comment: Perf ormed at: - [facility] [id number] Voucher Clerk: Manny Presley PhD, Phone: [phone] Performed By: #### L 501.4405, L501.4100 #### [facility] [address] [place], [place], [id number] COMMENT TNP Normal . [facility] Comment on above: Order Comment: Y Performed By: #### L 501.4405, L501.4100 #### [facility] [address] [place], [place], [phone] AST(SGOT)on 08-24-2024 AST [Catalytic activity/Vol] 77 U/L High <=31 [facility] Comment on above: Order Comment: PLEAS E FAX RESULTS TO [phone] Performed By: #### L 500.4100, L501.4100, L3300.4490, L501.4405 #### [facility] [address] [place], [place], [id number] Alanine Aminotransferas (SGP T)on 08-24-2024 ALT [Catalytic activity/Vol] 80 U/L High <=34 [facility] Comment on above: Order Comment: ILDEFONSO Kaplan FAX RESULTS TO [phone] Performed By: #### L 500.4100, L501.4100, L3300.4490, L501.4405 #### [facility] [address] [place], [place], [address] Calculated very low density lipoprotein (VLDL) cholesterol measurementOrdered By: Ronnie Morton on 08-24-2024 Calculated very low density lipoprotein (VLDL) cholesterol measurement 21 mg/dL 5-40 [facility] VLDL Cholesterol 21 mg/dL 5-40 [facility] Cholesterol in LDL Direct as say [Mass/Vol]Ordered By: Ronnie Morton on 08-24-2024 LDL Cholesterol Direct 67 mg/dL 0-99 [facility] Comment on above: Performed at: [facility] [address] [id number] Director: Manny Presley PhD, Phone: [phone] LDL calc ser/plasOrdered By: Ronnie Morton on 08-24-2024 Cholesterol in LDL [Mass/Vol] 67 mg/dL 0-99 [facility] Comment on above: Kdyalfsxvd=551-889 m g/dL & Higher Mxat=725 mg/dL or greater Performed at: [facility] [address] [id number] Director: Manny Presley PhD, Phone: [phone] LDL Cholesterol, Calculated 67 mg/dL [facility] Comment on above: Drzkuhpeju=713-594 m g/dL & Higher Jnov=518 mg/dL or greater Laboratory - Chemistry and C hemistry - challengeOrdered By: Ronnie Morton on 08-24-2024 AST [Catalytic activity/Vol] 77 U/L High <32 [facility] Laboratory - Miscellaneous t estsOrdered By: Ronnie Morton on 03-27-2025 Service comment (Unsp spec) [Interp] TNP [facility] Comment on above: Test not performed Lipid Profileon 08-24-2024 CHOL:HDL 3.10 Normal [facility] Comment on above: Order Comment: PLEAS E FAX RESULTS TO [phone] Performed By: #### L 500.4100, L501.4100, L3300.4490, L501.4405 #### [facility] [address] [place], [address] Cholesterol [Mass/Vol] 130 mg/dL Normal <=200 [facility] Comment on above: Order Comment: PLEAS E FAX RESULTS TO [phone] Result Comment: Chol esterol level, Desirable <200 mg/dL Borderline high cholesterol 200-239 mg/dL High cholesterol >=240 mg/dL Recommendations of the NCEP Adult Treatment Panel for the following risk-cutoff thresholds for the [place] population. Performed By: #### L 500.4100, L501.4100, L3300.4490, L501.4405 #### [facility] [address] [place], [address] Cholesterol in HDL [Mass/Vol] 42 mg/dL Normal [facility] Comment on above: Order Comment: PLEAS E FAX RESULTS TO [phone] Result Comment: Aracelis onal Cholesterol Education Program (NCEP) guidelines: <40 mg/dL: Low HDL-cholesterol (major risk factor for CHD) >= 60 mg/dL: High HDL-cholesterol (negative risk factor for CHD) HDL-cholesterol is affected by a number of factors, e.g. smoking, exercise, hormones, sex and age. Performed By: #### L 500.4100, L501.4100, L3300.4490, L501.4405 #### [facility] [address] [place], [address] Cholesterol in LDL [Mass/Vol] 67 mg/dL Normal [facility] Comment on above: Order Comment: PLEAS E FAX RESULTS TO [phone] Result Comment: Bord trbdug=985-751 mg/dL Higher Spun=857 mg/dL or greater Performed By: #### L 500.4100, L501.4100, L3300.4490, L501.4405 #### [facility] [address] [place], [place], [address] Cholesterol in VLDL [Mass/Vol] 21 mg/dL Normal 5-40 [facility] Comment on above: Order Comment: PLEAS E FAX RESULTS TO [phone] Performed By: #### L 500.4100, L501.4100, L3300.4490, L501.4405 #### [facility] [address] [place], [address] Triglyceride [Mass/Vol] 105 mg/dL Normal [facility] Comment on above: Order Comment: PLEAS E FAX RESULTS TO [phone] Result Comment: The drugs N-Acetylcysteine and Metamizole may falsely depress this assay. Normal range: <150 mg/dL Borderline High: 150-199 mg/dL High: 200-499 mg/dL Very High: >500 mg/dL Performed By: #### L 500.4100, L501.4100, L3300.4490, L501.4405 #### [facility] [address] [place], [place], [address] Screening total cholesterol/ high density lipoprotein (HDL) cholesterol ratioOrdered By: Ronnie Morton on 08-24-2024 Cholesterol.total/Choles terol in HDL [Mass ratio] 3.10 {ratio} [facility] Serum or plasma alanine hong otransferase (ALT) measurementOrdered By: Ronnie Morton on 08-24-2024 ALT [Catalytic activity/Vol] 80 U/L High <35 [facility] Serum or plasma cholesterol in HDL measurement (mass/volume)Ordered By: Ronnie Morton on 08-24-2024 Cholesterol in HDL [Mass/Vol] 42 mg/dL >40 [facility] Comment on above: National Cholesterol Education Program (NCEP) guidelines:<40 mg/dL: Low HDL-cholesterol (major risk factor for CHD)>= 60 mg/dL: High HDL-cholesterol (negative risk factor for CHD)HDL-cholesterol is affected by a number of factors, e.g. smoking, exercise, hormones, sex and age. Serum or plasma cholesterol measurement (mass/volume)Ordered By: Ronnie Morton on 08-24-2024 Cholesterol [Mass/Vol] 130 mg/dL <201 [facility] Comment on above: Cholesterol level, D esirable <200 mg/dLBorderline high cholesterol 200-239 mg/dLHigh cholesterol >=240 mg/dLRecommendations of the NCEP Adult Treatment Panel for the following risk-cutoff thresholds for the [place] population. Service comment (Unsp spec) [Interp]Ordered By: Ronnie Morton on 08-24-2024 LDL Cholesterol Direct Comment TNP [facility] Comment on above: Test not performed Triglycerides measurementOrd ered By: Ronnie Morton on 08-24-2024 Triglyceride [Mass/Vol] 105 mg/dL <199 [facility] Comment on above: The drugs N-Acetylcy steine and Metamizole may falsely depress this assay. Normal range: <150 mg/dLBorderline High: 150-199 mg/dLHigh: 200-499 mg/dLVery High: >500 mg/dL AST(SGOT)on 2024 AST [Catalytic activity/Vol] 19 U/L Normal 15-37 [facility] Comment on above: Performed By: #### L 501.4100, L501.4405, L500.4100 #### [facility] [address] [facility] [place], [address] Alanine Aminotransferas (SGP T)on 2024 ALT [Catalytic activity/Vol] 26 U/L Normal 13-56 [facility] Comment on above: Performed By: #### L 501.4100, L501.4405, L500.4100 #### [facility] [address] [place], [address] Lipid Profileon 2024 Cholesterol [Mass/Vol] 127 mg/dL Normal 200 [facility] Comment on above: Result Comment: <200 mg/dL Desirable 200-240 mg/dL Borderline >240 mg/dL High Risk Performed By: #### L 501.4100, L501.4405, L500.4100 #### [facility] [address] [place], [address] Cholesterol in HDL [Mass/Vol] 65 mg/dL Normal [facility] Comment on above: Result Comment: The drugs N-Acetylcysteine and Metamizole may falsely depress this assay. Reference Range HDL <40 mg/dL Low HDL Cholesterol HDL >or= 60 mg/dL High HDL Cholesterol Performed By: #### L 501.4100, L501.4405, L500.4100 #### [facility] [address] [place], [address] Cholesterol in LDL [Mass/Vol] 52 mg/dL Normal 0-130 [facility] Comment on above: Performed By: #### L 501.4100, L501.4405, L500.4100 #### [facility] [address] [place], [address] Cholesterol in VLDL [Mass/Vol] 10 mg/dL Normal 5-40 [facility] Comment on above: Performed By: #### L 501.4100, L501.4405, L500.4100 #### [facility] [address] [place], [address] Triglyceride [Mass/Vol] 50 mg/dL Normal [facility] Comment on above: Result Comment: The drugs N-Acetylcysteine and Metamizole may falsely depress this assay. Serum Triglycerides Reference Interval Normal <150 mg/dL Borderline high 150 - 199 mg/dL High 200 - 499 mg/dL Very High > or = 500 mg/dL Performed By: #### L 501.4100, L501.4405, L500.4100 #### [facility] [address] [place], [address] Urine Cultureon 03-12-2024 U[facility] Staphylococcus saprophyticus urine sensitivities are not recommended per CLSI guidelines. Treatment with Nitrofurantoin, Trimethoprim/Sulfa or a Fluroquinolone is suggested. Staphylococcus saprophyticus [place] Count >100,000 Normal [facility] Comment on above: Performed By: #### L 501.4405, L501.4100 #### [facility] [address] [place], [address] Urgent Care Visit Reporton 1 Urgent Care Visit Report [facility] [address], [address] [place] [address] OFFICE VISIT Date of Service: 03/10/24 MR#: [id number] Acct: [id number] Name: DARON DIAL Rep #: [id number] : 1990 Provider: LUIS FERNANDO Huddleston Age/Sex: 33/F Location: [facility] Status: Signed Intake Vital Signs 02/14/24 09:47 03/10/24 08:18 Height 5 ft 3 in BP 106/64 Blood Pressure Location Lt brachial Position Sitting Respiration 12 Pulse 71 Pulse Source Monitor Temp 98.1 F Temp Source Temporal Pulse Oximetry (%) 100 Oxygen Delivery Method room air Intake Visit Reasons: Possible UTI Allergies Sulfa (Sulfonamide Antibiotics) Allergy (Mild, Verified 03/10/24 08:19) blisters PFSH Medical History Right ankle instability Tibial fracture Small bowel obstruction Gestational diabetes mellitus (GDM) Hx of thyroiditis Infertility Surgical History delivery delivered History of bilateral salpingectomy History of mandibular surgery Family History Grandfather Hypertension Other Abnormal uterine bleeding (AUB) Social History Smoking Status: Never smoker alcohol intake: never substance use type: does not use caffeine: Yes what type of physical activity do you participate in: none seatbelt use: always do you feel safe at home: Yes additional social history: Htzhxsm-Nytr-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 Patient denies nausea, vomiting or diarrhea. No pelvic or abdominal pain. No loss of bowel or bladder control. No other associated symptoms or alleviating/aggravat ing factors. ROS Const Constitutional: Positive for other (ROS negative x 10 except what is described above) Exam Const General: cooperative and healthy appearing Resp Effort Inspection: normal respiratory effort Auscultation: Bilateral: Clear to Auscultation Cardio Rate: regular rate Rhythm: regular rhythm GI Auscultation: normal bowel sounds General: No CVA tenderness Psych Appearance: grossly normal Mental Status: mental status grossly normal Results POC Urinalysis Dip (Clinic) Office Urine Color YELLOW Last Edit by Tamy Valera on 03/10/24 08:21 Office Urine Clarity Turbid Last Edit by Tamy Valera on 03/10/24 08:21 Office Urine Glucose Negative Last Edit by Tamy Valera on 03/10/24 08:21 Office Urine Ketones Negative Last Edit by Tamy Valera on 03/10/24 08:21 Off Ur Spec [place] 1.015 Last Edit by Tamy Valera on 03/10/24 08:21 Office Urine pH 7.5 Last Edit by Tamy Valera on 03/10/24 08:21 Office Urine Bilirubin Negative Last Edit by Tamy Valera on 03/10/24 08:21 Office Urine Urobilinogen Negative Last Edit by Tamy Valera on 03/10/24 08:21 Office Urine Blood Moderate Last Edit by Tamy Valera on 03/10/24 08:21 Office Urine Blood Hemolyzed Non-Hemolyzed Last Edit by Tamy Valera on 03/10/24 08:21 Office Urine Protein Negative Last Edit by Tamy Valera on 03/10/24 08:21 Office Urine Nitrate Negative Last Edit by Tamy Valera on 03/10/24 08:21 Off Ur Leukocytes Positive Last Edit by Tamy Valera on 03/10/24 08:21 Coding Level of Care Code Off vis,est,level 3 Diagnoses Dysuria R30.0 Assessment and Plan Assessment and Plan (1) Dysuria: Status: Acute Plan: Macrobid as prescribed today. Encouraged to get plenty of rest, drink lots of clear liquids, and use Tylenol or Ibuprofen (unless contraindicated) for fever and comfort. Patient also educated on other symptomatic management techniques. To be seen in 7-10 days if no improvement; sooner if worsening of symptoms. Patient advised of potential red flags and when appropriate to report to the ED. Patient verbalized understanding and agreement with all the above. Orders: Orders Culture, Urine Today R30.0 - Dysuria Urinalysis, Complete Today R30.0 - Dysuria POC Urinalysis Dip (Clinic) Today R30.0 - Dysuria Medications: New nitrofurantoin monohyd/m-cryst 100 mg administer with a meal/food; swallow whole; do not open, crush, dissolve , or chew 1 cap PO Q12H 7 days 14 caps 0RF 03/10/24 0841 Date Orlando De La Paz Signature: Date (if applicable) CC: Normal [facility] Urinalysis, Completeon 03-10 RBC 0-5 SEEN Normal 0-5 [facility] Comment on above: Order Comment: CLEAN CATCH Performed By: #### L 501.4405, L501.4100 #### [facility] [address] [place], [place], [id number] BACTERIA 2+ /hpf Normal None Seen [facility] Comment on above: Order Comment: CLEAN CATCH Performed By: #### L 501.4405, L501.4100 #### [facility] [address] [place], [address] EPI,SQUAMOUS 5-10 SEEN Normal 5-10 [facility] Comment on above: Order Comment: CLEAN CATCH Performed By: #### L 501.4405, L501.4100 #### [facility] [address] [place], [address] EPI,TRANSITION 0-5 SEEN Normal 0-5 [facility] Comment on above: Order Comment: CLEAN CATCH Performed By: #### L 501.4405, L501.4100 #### [facility] [address] [place], [address] WBC 5-10 SEEN Normal 0-5 [facility] Comment on above: Order Comment: CLEAN CATCH Performed By: #### L 501.4405, L501.4100 #### [facility] [address] [place], [address] Mucus Ql (Urine sed) 0 SEEN Normal [facility] Comment on above: Order Comment: CLEAN CATCH Performed By: #### L 501.4405, L501.4100 #### [facility] [address] 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 Office Visit Report [facility] [address], [address] [place] [address] OFFICE VISIT Date of Service: 02/14/24 MR#: [id number] Acct: [id number] Name: DARON DIAL Rep #: [id number] : 1990 Provider: JAZMÍN simons Age/Sex: 33/F Location: [facility] Status: Signed Intake Vital Signs 01/18/23 14:29 05/18/23 18:23 10/13/23 15:29 02/14/24 09:35 02/14/24 09:47 Height 5 ft 3 in 5 ft 3 in 5 ft 3 in 5 ft 3 in 5 ft 3 in Weight: 120 lb 2 oz BMI 21.2 BP 98/64 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 Is patient in pain?: No Allergies Sulfa (Sulfonamide Antibiotics) Allergy (Mild, Verified 09/16/24 09:35) blisters Medications ???Medication ???Instructions ???Recorded ???Confirmed ???Type buspirone 7.5 mg tablet 7.5 mg PO BID 02/14/24 02/14/24 History fluconazole 150 mg tablet 150 mg PO ONCE #1 TAB 02/14/24 02/14/24 Rx Is last menstrual period known: Yes Post menopausal: No Patient : No : No PFSH Medical History Right ankle instability Tibial fracture Small bowel obstruction Gestational diabetes mellitus (GDM) Hx of thyroiditis Infertility Surgical History delivery delivered History of bilateral salpingectomy History of mandibular surgery Family History Grandfather Hypertension Other Abnormal uterine bleeding (AUB) Social History Smoking Status: Never smoker alcohol intake: never substance use type: does not use caffeine: Yes what type of physical activity do you participate in: none seatbelt use: always do you feel safe at home: Yes additional social history: Zzzhiju-Mval[employer]in[employer] 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 Still gets yeast every few months, zaid after exercise and doesn't change clothing. No menses with IUD Last PAP: 2021 History of abnormal PAP: no Last mammogram: age 38 Other preventative health care screenings: Jim Female Reproductive History Questions: metorrhagia: No, sexually active: Yes, dyspareunia: No and PCB: No ROS Const Constitutional: Denies fatigue, weight gain or weight loss Cardio Card: Denies chest pain Resp Resp: Denies cough or dyspnea on exertion GI GI: Denies abdominal pain, bloating, change in stool character, constipation or vomiting : Reports as per HPI; Denies difficulty voiding, pelvic pain, urinary frequency, urinary incontinence, urinary urgency, vaginal discharge or vaginal pruritus Exam Const General: cooperative, healthy appearing, no acute distress and well developed Orientation: alert, oriented to person and oriented to place HENNV Head: normal to inspection Neck Neck: normal visual inspection Thyroid: thyroid normal Lymphatic: no lymphadenopathy noted Chest Breast inspection: normal inspection of the breasts and normal inspection of the axillae Breast palpation: normal palpation of the breasts, normal palpation of the axillae and no axillary lymphadenopathy Resp Effort Inspection: normal respiratory effort GI Palpation: soft, no masses and nontender Rectal Exam: deferred External Female Exam: normal external appearance and normal appearance of the urethra Urethra: normal appearance of the urethra and normal palpation Speculum Exam - Vagina: normal appearance of the vagina and normal vaginal discharge Speculum Exam - Cervix: normal appearance of the cervix Bimanual Exam- Vagina Uterus: normal bimanual exam, uterine size normal, uterine shape normal and non-tender Bimanual (more content not included)... Normal [facility] LYME EARLY (SIGNS/SYMP <=30 DAYS) [CCL]on 11-04-2023 RESULT CRITICAL? NO Normal [facility] Comment on above: Performed By: #### 2 [id number] #### [facility],[address] [place], [place] [id number] Lyme IgG IgM Ab Negative Normal Negative [facility] Comment on above: Result Comment: Rece nt infection with B. burgdorferi sensu lato cannot be excluded if the specimen collected within four weeks after the onset of signs and symptoms or within six weeks after a known tick exposure. Clinical and epidemiological correlation is required. [place] [address] [place] [address] Junior Rome III, M.D. [id number] Performed By: #### 2 89301 #### [facility],[address] [place] [address] C-REACTIVE PROTEINon 024 CRP 0.11 mg/dl Normal 0.00 - 0.90 [facility] Comment on above: Performed By: #### 2 [id number] #### [facility],[address] [place] [address] CBC + DIFFon 11-03-2023 Baso # 0.03 x10EE3/UL Normal 0.00 - 0.10 [facility] Comment on above: Performed By: #### 2 82611 #### [facility],[address] [place] [address] Basophils/100 WBC (Bld) 0.4 % Normal 0.0 - 2.0 [facility] Comment on above: Performed By: #### 2 [id number] #### [facility],[address] [place] [address] Basophils/100 WBC (Bld) 1.0 % Normal 0.0 - 2.0 [facility] Comment on above: Performed By: #### 2 [id number] #### [facility],[address] [place] [address] CBC + DIFF Normal [facility] Comment on above: Result Comment: CBC- COMPLETE BLOOD COUNT Performed By: #### 2 [id number] #### [address] [address] CELL COUNT 100 Normal [facility] Comment on above: Performed By: #### 2 54930 #### [address] [address] EO # 0.02 x10EE3/UL Normal 0.00 - 0.50 [facility] Comment on above: Performed By: #### 2 60291 #### [facility],[address] [place] [address]54 Eosinophils/100 WBC (Bld) 0.3 % Normal 0.0 - 7.0 [facility] Comment on above: Performed By: #### 2 89203 #### [facility],[address] [place], [place] [id number] Erythrocyte distribution width (RBC) [Ratio] 13.9 % Normal 12.0 - 15.6 [facility] Comment on above: Performed By: #### 2 89851 #### [facility],[address] [place], [place] [id number] Hematocrit (Bld) [Volume fraction] 42.7 % Normal 34.0 - 46.0 [facility] Comment on above: Performed By: #### 2 23700 #### [facility],[address] [place], [place] [id number] Hemoglobin (Bld) [Mass/Vol] 14.2 g/dL Normal 12.0 - 16.0 [facility] Comment on above: Performed By: #### 2 07822 #### [facility],[address] [place] [address] Lymph # 1.42 x10EE3/UL Normal 0.80 - 2.80 [facility] Comment on above: Performed By: #### 2 81511 #### [facility],[address] [place] [address] 81017 Lymphocytes/100 WBC (Bld) 18.9 % Low 20.0 - 45.0 [facility] Comment on above: Performed By: #### 2 72634 #### [facility],[address] [place] [address]114 Lymphocytes/100 WBC (Bld) 24 % Normal 20 - 40 [facility] Comment on above: Performed By: #### 2 95860 #### [facility],[address] [place] [address] MANUAL DIFF SEE BELOW Normal [facility] Comment on above: Performed By: #### 2 27766 #### [facility],[address] [place] [address] MCH (RBC) [Entitic mass] 29 pg Normal 27 - 33 [facility] Comment on above: Performed By: #### 2 00609 #### [facility],[address] [place] [address] MCHC 33 X10 3 Normal 32 - 36 [facility] Comment on above: Performed By: #### 2 77744 #### [facility],[address] [place] [address] MCV (RBC) [Entitic vol] 88 fL Normal 80 - 99 [facility] Comment on above: Performed By: #### 2 82386 #### [facility],[address] [place] [address] Webb # 0.32 x10EE3/UL Normal 0.20 - 1.00 [facility] Comment on above: Performed By: #### 2 54914 #### [facility],[address] [place] [address] MONOS 1 % Normal 0 - 8 [facility] Comment on above: Performed By: #### 2 64383 #### [facility],[address] [place] [address] MONOS % 4.3 % Normal 0.0 - 10.0 [facility] Comment on above: Performed By: #### 2 20928 #### [facility],[address] [place] [address] Morphology Lele (Bld) [Interp] N/A Normal [facility] Comment on above: Performed By: #### 2 05175 #### [facility],[address] [place] [address] Neut # 5.71 x10EE3/UL Normal 1.50 - 7.10 [facility] Comment on above: Performed By: #### 2 36254 #### [facility],[address] [place] [address] Neutrophils/100 WBC (Bld) 76.1 % High 46.0 - 76.0 [facility] Comment on above: Performed By: #### 2 71895 #### [facility],[address] [place] [address] PLATELET 287 x10EE3/UL Normal 150 - 450 [facility] Comment on above: Performed By: #### 2 07816 #### [facility],[address] [place] [address]666 Platelet mean volume (Bld) [Entitic vol] 7.1 fL Normal 6.6 - 10.5 [facility] Comment on above: Result Comment: AUTO MATED DIFFERENTIAL Performed By: #### 2 74089 #### [facility],[address] [place] [address]250 RBC 4.85 x 10EE6/UL Normal 4.10 - 5.30 [facility] Comment on above: Performed By: #### 2 28943 #### [facility],[address] [place] [address] SEGS 74 % High 50 - 70 [facility] Comment on above: Performed By: #### 2 36314 #### [facility],[address] [place] [address]45 WBC 7.5 x 10EE3/UL Normal 4.5 - 10.8 [facility] Comment on above: Performed By: #### 2 19719 #### [facility],[address] [place] [address]85 CMP with eGFRon 11-03-2023 AGE 33 years Normal [facility] Comment on above: Performed By: #### 2 38537 #### [facility],[address] [place] [address]13 Albumin [Mass/Vol] 4.1 g/dL Normal 3.4 - 5.0 [facility] Comment on above: Performed By: #### 2 26196 #### [facility],[address] [place], [place] [phone] Albumin/Globulin [Mass ratio] 1.2 {ratio} Normal 0.9 - 1.6 [facility] Comment on above: Performed By: #### 2 61200 #### [facility],[address] [place] [address] ALK PHOS 83 U/L Normal 46 - 116 [facility] Comment on above: Performed By: #### 2 95969 #### [facility],[address] [place] [address] ALT [Catalytic activity/Vol] 19 U/L Normal 16 - 63 [facility] Comment on above: Performed By: #### 2 08026 #### [facility],[address] [place] [address] Anion gap [Moles/Vol] 11 mmol/L Normal 10 - 20 [facility] Comment on above: Performed By: #### 2 74131 #### [facility],[address] [place] [address] AST [Catalytic activity/Vol] 12 U/L Low 13 - 39 [facility] Comment on above: Performed By: #### 2 55635 #### [facility],[address] [place] [address] B/C RATIO 9 ratio Normal 0 - 30 [facility] Comment on above: Performed By: #### 2 38359 #### [facility],[address] [place] [address] Bilirubin [Mass/Vol] 1.4 mg/dL High 0.2 - 1.0 [facility] Comment on above: Performed By: #### 2 88506 #### [facility],[address] [place] [address] Calcium [Mass/Vol] 9.1 mg/dL Normal 8.5 - 10.1 [facility] Comment on above: Performed By: #### 2 13025 #### [facility],[address] [place] [address] Chloride [Moles/Vol] 103 mmol/L Normal 98 - 107 [facility] Comment on above: Performed By: #### 2 00223 #### [facility],[address] [place] [address] CMP with eGFR Normal [facility] Comment on above: Result Comment: COMP REHENSIVE METABOLIC PANEL Performed By: #### 2 61822 #### [address] [address] CO2 [Moles/Vol] 27.1 mmol/L Normal 21.0 - 32.0 [facility] Comment on above: Performed By: #### 2 44038 #### [facility],[address] [place], [place] [phone] Creatinine [Mass/Vol] 0.78 mg/dL Normal 0.55 - 1.02 [facility] Comment on above: Performed By: #### 2 71501 #### [facility],[address] [place] [address] GFR/1.73 sq M.predicted among non-blacks MDRD (S/P/Bld) [Vol rate/Area] mL/min/{1.73_m2} Normal 60 - 999 [facility] Comment on above: Performed By: #### 2 63586 #### [facility],[address] [place] [address] Result Comment: ACCO RDING TO THE NATIONAL KIDNEY DISEASE EDUCATION PROGRAM(NKDE), A NORMAL eGFR IS A VALUE GREATER THAN OR EQUAL TO 60 ML/MIN/1.73 SQ METERS. CHRONIC KIDNEY DISEASE: <60mL/MIN/1.73 SQ METERS KIDNEY FAILURE: <15mL/MIN/1.73 SQ METERS THIS TEST SHOULD ONLY BE USED FOR PATIENTS 18 YEARS OF AGE AND OLDER. Globulin (S) [Mass/Vol] 3.3 g/dL Normal 1.5 - 3.8 [facility] Comment on above: Performed By: #### 2 73167 #### [facility],[address] [place] [address] Glucose [Mass/Vol] 91 mg/dL Normal 74 - 106 [facility] Comment on above: Performed By: #### 2 98875 #### [facility],[address] [place] [address] Potassium [Moles/Vol] 3.9 mmol/L Normal 3.5 - 5.1 [facility] Comment on above: Performed By: #### 2 62470 #### [facility],[address] [place] [address] Protein [Mass/Vol] 7.4 g/dL Normal 6.4 - 8.2 [facility] Comment on above: Performed By: #### 2 51329 #### [facility],[address] [place] [address] Sodium [Moles/Vol] 137 mmol/L Normal 136 - 145 [facility] Comment on above: Performed By: #### 2 98247 #### [facility],[address] [place] [address] Urea nitrogen [Mass/Vol] 7 mg/dL Normal 7 - 18 [facility] Comment on above: Performed By: #### 2 02856 #### [facility],[address] [place] [address] MAGNESIUMon 11-03-2023 Magnesium [Mass/Vol] 1.9 mg/dL Normal 1.8 - 2.4 [facility] Comment on above: Performed By: #### 2 23066 #### [facility],[address] [place] [address] Absolute lymphocyte countOrd ered By: Candido Jasso on 08-08-2023 Lymphocytes Auto (Unsp spec) [#/Vol] 1.95 10*3/uL 0.83-4.51 [facility] Automated lymphocyte count a s percentage of total leukocytesOrdered By: Candido Jasso on 08-08-2023 Lymphocytes/100 WBC Auto (Unsp spec) 28.3 % 19-41 [facility] Basophil percentageOrdered B y: Candido Jasso on 08-08-2023 Basophils/100 WBC (Bld) 0.3 % 0-1 [facility] Bilirubin [Mass/Vol] 0.50 mg/dL 0.20-1.00 [facility] Comment on above: For patients on eltr ombopag therapy, use of Dimension [place] TBIL is not recommended. Chloride [Moles/Vol] 105 mmol/L 98-107 [facility] Eosinophils/100 WBC (Bld) 0.1 % 0-5 [facility] Glucose [Mass/Vol] 101 mg/dL 74-106 [facility] Comment on above: Fasting Glucose resu lt from 100 to 125 mg/dL suggests IMPAIRED HOMEOSTASIS per A.D.A. criteria. Hemoglobin (Bld) [Mass/Vol] 13.2 g/dL 12.0-15.0 [facility] Monocytes/100 WBC (Bld) 4.6 % 0-10 [facility] Neutrophils (Bld) [#/Vol] 4.6 10*3/uL 2.0-7.7 [facility] Neutrophils/100 WBC (Bld) 66.4 % 47-70 [facility] Potassium [Moles/Vol] 4.0 mmol/L 3.5-5.1 [facility] Protein [Mass/Vol] 7.7 g/dL 6.4-8.2 [facility] Sodium [Moles/Vol] 140 mmol/L 136-145 [facility] WBC (Bld) [#/Vol] 6.9 10*3/uL 4.4-11.0 [facility] Determination of erythrocyte mean corpuscular volume (MCV)Ordered By: Candido Jasso on 08-08-2023 MCV (RBC) [Entitic vol] 88.3 fL 81-99 [facility] Direct bilirubinOrdered By: Candido Jasso on 08-08-2023 Bilirubin.direct [Mass/Vol] 0.16 mg/dL 0.00-0.30 [facility] Erythrocyte distribution wid th ratioOrdered By: Candido Jasso on 08-08-2023 Erythrocyte distribution width (RBC) [Ratio] 12.4 % 11.6-14.6 [facility] Erythrocyte distribution wid th standard deviationOrdered By: Candido Jasso on 08-08-2023 Erythrocyte distribution width (RBC) [Entitic vol] 39.8 fL 35.1-43.9 [facility] Hematocrit Auto (Bld) [Volum e fraction]Ordered By: Candido Jasso on 08-08-2023 Hematocrit (Bld) [Volume fraction] 40.9 % 37-47 [facility] Immature granulocytes/100 WB C Auto (Bld)Ordered By: Candido Jasso on 08-08-2023 Immature granulocytes/100 WBC (Bld) 0.300 % 0.0-0.9 [facility] Comment on above: IG% - Immature Granu locytes (promyelocytes, myelocytes and metamyelocytes) > 1% indicates that a LEFT SHIFT is Present. Laboratory - Chemistry and C hemistry - challengeOrdered By: Candido Jasso on 08-08-2023 ALP [Catalytic activity/Vol] 80 U/L 45-117 [facility] ALT [Catalytic activity/Vol] 16 U/L 13-56 [facility] CO2 [Moles/Vol] 28.0 mmol/L 21.0-32.0 [facility] Globulin (S) [Mass/Vol] 3.9 g/dL 2.2-4.2 [facility] Lipase [Catalytic activity/Vol] 18 U/L -75 [facility] Comment on above: Please note:LIPASE r evised reference range effective 22. New Lipase methodology. Expected to produce lower values than the previous assay method. NEW Reference Range: 13 - 75 U/L Urea nitrogen/Creatinine [Mass ratio] 14.1 mg/mg 10-20 [facility] Laboratory - Hematology and Cell countsOrdered By: Candido Jasso on 08-08-2023 MCH (RBC) [Entitic mass] 28.5 pg 27.0-32.0 [facility] MCHC (RBC) [Mass/Vol] 32.3 g/dL 32-36 [facility] Nucleated RBC/100 WBC (Bld) [Ratio] 0 % 0-5 [facility] Platelet mean volume (Bld) [Entitic vol] 8.8 fL 6.2-12.0 [facility] Platelets (Bld) [#/Vol] 293 10*3/uL 150-450 [facility] No Panel InformationOrdered By: Candido Jasso on 08-08-2023 Estimated Creatinine Clearance Calc 99.89 ml/min [facility] Estimated GFR (MDRD) Amer 136 mL/min >60 [facility] Comment on above: GFR Calc Estimated GFR (MDRD) Non-Af Amer 112 mL/min >60 [facility] Comment on above: Non- GFR Calc RBC Auto (Bld) [#/Vol]Ordere d By: Candido Jasso on 08-08-2023 RBC (Bld) [#/Vol] 4.63 10*6/uL 4.2-5.4 [facility] Serum or plasma calcium tc urement (mass/volume)Ordered By: Candido Jasso on 08-08-2023 Calcium [Mass/Vol] 9.1 mg/dL 8.5-10.1 [facility] Serum or plasma choriogonado tropin detectionOrdered By: Candido Jasso on 08-08-2023 HCG ( test) Ql Negative [facility] Serum or plasma creatinine m easurement (mass/volume)Ordered By: Candido Jasso on 08-08-2023 Creatinine [Mass/Vol] 0.64 mg/dL 0.55-1.02 [facility] Comment on above: The validity of the calculated GFR & GFRAA in patients over 70 years has not been determined. Clinical correlation is essential. Serum or plasma urea nitroge n measurement (mass/volume)Ordered By: Candido Jasso on 08-08-2023 Urea nitrogen [Mass/Vol] 9 mg/dL 7-18 [facility] Thin prep Papanicolaou smear with manual screeningOrdered By: Candido Jasso on 08-08-2023 Thin prep Papanicolaou smear with manual screening 3.8 g/dL 3.2-5.0 [facility] Thin prep Papanicolaou smear with manual screening 9 U/L 15-37 [facility] Thin prep Papanicolaou smear with manual screening 7 5-15 [facility] Absolute lymphocyte countOrd ered By: Jessee Ferraro on 07-31-2023 Lymphocytes Auto (Unsp spec) [#/Vol] 1.44 10*3/uL 0.83-4.51 [facility] Automated lymphocyte count a s percentage of total leukocytesOrdered By: Jessee Ferraro on 07-31-2023 Lymphocytes/100 WBC Auto (Unsp spec) 11.9 % 19-41 [facility] Basophil percentageOrdered B y: Jessee Ferraro on 07-31-2023 Basophils/100 WBC (Bld) 0.2 % 0-1 [facility] Chloride [Moles/Vol] 110 mmol/L 98-107 [facility] Eosinophils/100 WBC (Bld) 0.0 % 0-5 [facility] Glucose [Mass/Vol] 112 mg/dL 74-106 [facility] Comment on above: Fasting Glucose resu lt from 100 to 125 mg/dL suggests IMPAIRED HOMEOSTASIS per A.D.A. criteria. Hemoglobin (Bld) [Mass/Vol] 13.9 g/dL 12.0-15.0 [facility] Monocytes/100 WBC (Bld) 6.1 % 0-10 [facility] Neutrophils (Bld) [#/Vol] 9.9 10*3/uL 2.0-7.7 [facility] Neutrophils/100 WBC (Bld) 81.5 % 47-70 [facility] Potassium [Moles/Vol] 3.8 mmol/L 3.5-5.1 [facility] Sodium [Moles/Vol] 138 mmol/L 136-145 [facility] WBC (Bld) [#/Vol] 12.1 10*3/uL 4.4-11.0 [facility] Determination of erythrocyte mean corpuscular volume (MCV)Ordered By: Jessee Ferraro on 07-31-2023 MCV (RBC) [Entitic vol] 88.4 fL 81-99 [facility] Erythrocyte distribution wid th ratioOrdered By: Jessee Ferraro on 07-31-2023 Erythrocyte distribution width (RBC) [Ratio] 12.3 % 11.6-14.6 [facility] Erythrocyte distribution wid th standard deviationOrdered By: Jessee Ferraro on 07-31-2023 Erythrocyte distribution width (RBC) [Entitic vol] 40.4 fL 35.1-43.9 [facility] Hematocrit Auto (Bld) [Volum e fraction]Ordered By: Jessee Ferraro on 07-31-2023 Hematocrit (Bld) [Volume fraction] 41.9 % 37-47 [facility] Immature granulocytes/100 WB C Auto (Bld)Ordered By: Jessee Ferraro on 07-31-2023 Immature granulocytes/100 WBC (Bld) 0.300 % 0.0-0.9 [facility] Comment on above: IG% - Immature Granu locytes (promyelocytes, myelocytes and metamyelocytes) > 1% indicates that a LEFT SHIFT is Present. Laboratory - Chemistry and C hemistry - challengeOrdered By: Jessee Ferraro on 07-31-2023 CO2 [Moles/Vol] 24.0 mmol/L 21.0-32.0 [facility] Urea nitrogen/Creatinine [Mass ratio] 24.2 mg/mg 10-20 [facility] Laboratory - Hematology and Cell countsOrdered By: Jessee Ferraro on 07-31-2023 MCH (RBC) [Entitic mass] 29.3 pg 27.0-32.0 [facility] MCHC (RBC) [Mass/Vol] 33.2 g/dL 32-36 [facility] Nucleated RBC/100 WBC (Bld) [Ratio] 0 % 0-5 [facility] Platelet mean volume (Bld) [Entitic vol] 8.7 fL 6.2-12.0 [facility] Platelets (Bld) [#/Vol] 327 10*3/uL 150-450 [facility] No Panel InformationOrdered By: Jessee Ferraro on 07-31-2023 Estimated Creatinine Clearance Calc 92.79 ml/min [facility] Estimated GFR (MDRD) Amer 122 mL/min >60 [facility] Comment on above: GFR Calc Estimated GFR (MDRD) Non-Af Amer 101 mL/min >60 [facility] Comment on above: Non- GFR Calc RBC Auto (Bld) [#/Vol]Ordere d By: Jessee Ferraro on 07-31-2023 RBC (Bld) [#/Vol] 4.74 10*6/uL 4.2-5.4 [facility] Serum or plasma calcium tc urement (mass/volume)Ordered By: Jessee Ferraro on 07-31-2023 Calcium [Mass/Vol] 9.3 mg/dL 8.5-10.1 [facility] Serum or plasma creatinine m easurement (mass/volume)Ordered By: Jessee Ferraro on 07-31-2023 Creatinine [Mass/Vol] 0.70 mg/dL 0.55-1.02 [facility] Comment on above: The validity of the calculated GFR & GFRAA in patients over 70 years has not been determined. Clinical correlation is essential. Serum or plasma urea nitroge n measurement (mass/volume)Ordered By: Jessee Ferraro on 07-31-2023 Urea nitrogen [Mass/Vol] 17 mg/dL 7-18 [facility] Thin prep Papanicolaou smear with manual screeningOrdered By: Jessee Ferraro on 07-31-2023 Thin prep Papanicolaou smear with manual screening 4 5-15 [facility] Absolute lymphocyte countOrd ered By: Vicente Cabrera on 07-30-2023 Lymphocytes Auto (Unsp spec) [#/Vol] 1.88 10*3/uL 0.83-4.51 [facility] Amorphous sediment detection in urine sediment by light microscopyOrdered By: Vicente Cabrera on 07-30-2023 Amorphous sediment LM Ql (Urine sed) 1+ [facility] Automated lymphocyte count a s percentage of total leukocytesOrdered By: Vicente Cabrera on 07-30-2023 Lymphocytes/100 WBC Auto (Unsp spec) 14.7 % 19-41 [facility] Basophil percentageOrdered B y: Vicente Cabrera on 07-30-2023 Basophil percentage 0 SEEN /hpf 0-5 [facility] Basophils/100 WBC (Bld) 0.3 % 0-1 [facility] Bilirubin [Mass/Vol] 0.70 mg/dL 0.20-1.00 [facility] Comment on above: For patients on eltr ombopag therapy, use of Dimension [place] TBIL is not recommended. Chloride [Moles/Vol] 110 mmol/L 98-107 [facility] Eosinophils/100 WBC (Bld) 0.4 % 0-5 [facility] Glucose [Mass/Vol] 115 mg/dL 74-106 [facility] Comment on above: Fasting Glucose resu lt from 100 to 125 mg/dL suggests IMPAIRED HOMEOSTASIS per A.D.A. criteria. Hemoglobin (Bld) [Mass/Vol] 13.0 g/dL 12.0-15.0 [facility] Monocytes/100 WBC (Bld) 4.1 % 0-10 [facility] Neutrophils (Bld) [#/Vol] 10.3 10*3/uL 2.0-7.7 [facility] Neutrophils/100 WBC (Bld) 80.1 % 47-70 [facility] Potassium [Moles/Vol] 3.8 mmol/L 3.5-5.1 [facility] Protein [Mass/Vol] 7.2 g/dL 6.4-8.2 [facility] Sodium [Moles/Vol] 140 mmol/L 136-145 [facility] WBC (Bld) [#/Vol] 12.8 10*3/uL 4.4-11.0 [facility] Bilirubin Test strip Ql (U)O rdered By: Vicente Cabrera on 07-30-2023 Bilirubin Ql (U) Negative Negative [facility] Determination of erythrocyte mean corpuscular volume (MCV)Ordered By: Vicente Cabrera on 07-30-2023 MCV (RBC) [Entitic vol] 89.1 fL 81-99 [facility] Erythrocyte distribution wid th ratioOrdered By: Vicente Cabrera on 07-30-2023 Erythrocyte distribution width (RBC) [Ratio] 12.5 % 11.6-14.6 [facility] Erythrocyte distribution wid th standard deviationOrdered By: Vicente Cabrera on 07-30-2023 Erythrocyte distribution width (RBC) [Entitic vol] 40.9 fL 35.1-43.9 [facility] Hematocrit Auto (Bld) [Volum e fraction]Ordered By: Vicente Cabrera on 07-30-2023 Hematocrit (Bld) [Volume fraction] 40.1 % 37-47 [facility] Immature granulocytes/100 WB C Auto (Bld)Ordered By: Vicente Cabrera on 07-30-2023 Immature granulocytes/100 WBC (Bld) 0.400 % 0.0-0.9 [facility] Comment on above: IG% - Immature Granu locytes (promyelocytes, myelocytes and metamyelocytes) > 1% indicates that a LEFT SHIFT is Present. Ketones Test strip Ql (U)Ord ered By: Vicente Cabrera on 07-30-2023 Ketones Ql (U) Negative Negative [facility] Laboratory - Chemistry and C hemistry - challengeOrdered By: Vicente Cabrera on 07-30-2023 Albumin/Globulin [Mass ratio] 1.1 {ratio} 0.9-2.4 [facility] ALP [Catalytic activity/Vol] 80 U/L 45-117 [facility] ALT [Catalytic activity/Vol] 16 U/L 13-56 [facility] CO2 [Moles/Vol] 27.0 mmol/L 21.0-32.0 [facility] Globulin (S) [Mass/Vol] 3.4 g/dL 2.2-4.2 [facility] Lipase [Catalytic activity/Vol] 24 U/L 13-75 [facility] Comment on above: Please note:LIPASE r evised reference range effective 22. New Lipase methodology. Expected to produce lower values than the previous assay method. NEW Reference Range: 13 - 75 U/L Urea nitrogen/Creatinine [Mass ratio] 23.0 mg/mg 10-20 [facility] Laboratory - Hematology and Cell countsOrdered By: Vicente Cabrera on 07-30-2023 MCH (RBC) [Entitic mass] 28.9 pg 27.0-32.0 [facility] MCHC (RBC) [Mass/Vol] 32.4 g/dL 32-36 [facility] Nucleated RBC/100 WBC (Bld) [Ratio] 0 % 0-5 [facility] Platelet mean volume (Bld) [Entitic vol] 8.7 fL 6.2-12.0 [facility] Platelets (Bld) [#/Vol] 333 10*3/uL 150-450 [facility] Mucus LM Ql (Urine sed)Order ed By: Vicente Cabrera on 07-30-2023 Mucus Ql (Urine sed) 0 SEEN /hpf [facility] Nitrite Test strip Ql (U)Ord ered By: Vicente Cabrera on 07-30-2023 Nitrite Ql (U) Negative Negative [facility] No Panel InformationOrdered By: Vicente Cabrera on 07-30-2023 Urine RBC 5-10 SEEN /hpf 0-5 [facility] Estimated Creatinine Clearance Calc 83.27 ml/min [facility] Estimated GFR (MDRD) Amer 107 mL/min >60 [facility] Comment on above: GFR Calc Estimated GFR (MDRD) Non-Af Amer 89 mL/min >60 [facility] Comment on above: Non- GFR Calc Protein Test strip Ql (U)Ord ered By: Vicente Cabrera on 07-30-2023 Protein Ql (U) 15 mg/dl Negative [facility] RBC Auto (Bld) [#/Vol]Ordere d By: Vicente Cabrera on 07-30-2023 RBC (Bld) [#/Vol] 4.50 10*6/uL 4.2-5.4 [facility] Serum or plasma calcium tc urement (mass/volume)Ordered By: Vicente Cabrera on 07-30-2023 Calcium [Mass/Vol] 9.6 mg/dL 8.5-10.1 [facility] Serum or plasma choriogonado tropin detectionOrdered By: Vicente Cabrera on 07-30-2023 HCG ( test) Ql 2 mIU/mL <4 [facility] Comment on above: hCG levels with Gest ational AgeGestational Age hCG mIU/mL (IU/L)0.2 - 1 week 5 - 501-2 weeks 50 - 5002-3 weeks 100 - 80158-5 weeks 500 - 396668-3 weeks 1000 - 052469-8 weeks 24716 - 100,0006-8 weeks 34212 - 200,0002-3 months 11729 - 100,000 Serum or plasma creatinine m easurement (mass/volume)Ordered By: Vicente Cabrera on 07-30-2023 Creatinine [Mass/Vol] 0.78 mg/dL 0.55-1.02 [facility] Comment on above: The validity of the calculated GFR & GFRAA in patients over 70 years has not been determined. Clinical correlation is essential. Serum or plasma urea nitroge n measurement (mass/volume)Ordered By: Vicente Cabrera on 07-30-2023 Urea nitrogen [Mass/Vol] 18 mg/dL 7-18 [facility] Squamous epithelial cells de tection in urine sediment by light microscopyOrdered By: Vicente Cabrera on 07-30-2023 Epithelial cells.squamous LM Ql (Urine sed) 0-5 SEEN /hpf 5-10 [facility] Thin prep Papanicolaou smear with manual screeningOrdered By: Vicente Cabrera on 07-30-2023 Thin prep Papanicolaou smear with manual screening 3.8 g/dL 3.2-5.0 [facility] Thin prep Papanicolaou smear with manual screening 10 U/L 15-37 [facility] Thin prep Papanicolaou smear with manual screening 3 5-15 [facility] Urine blood detectionOrdered By: Vicente Cabrera on 07-30-2023 RBC Ql (U) 250 /ul Negative [facility] Urine clarityOrdered By: Khai Cabrera on 07-30-2023 Clarity (U) Sl. Cloudy Clear [facility] Urine color determinationOrd ered By: Vicente Cabrera on 07-30-2023 Color (U) Yellow Yellow [facility] Urine glucose detectionOrder ed By: Vicente Cabrera on 07-30-2023 Glucose Ql (U) Normal mg/dl Normal [facility] Urine leukocyte esterase det ection by dipstickOrdered By: Vicente Cabrera on 07-30-2023 Leukocyte esterase Test strip Ql (U) 25 /ul Negative [facility] Urine pHOrdered By: Vicente armando on 07-30-2023 pH (U) 9.0 [pH] 5.0 - 8.0 [facility] Urine sediment bacteria coun t by microscopy (number/high power field)Ordered By: Vicente Cabrera on 07-30-2023 Bacteria LM.HPF (Urine sed) [#/Area] RARE /hpf None Seen [facility] Urine specific gravity measu rementOrdered By: Vicente Cabrera on 07-30-2023 Specific gravity (U) [Rel density] 1.015 1.002-1.030 [facility] Urine urobilinogen measureme ntOrdered By: Vicente Cabrera on 07-30-2023 Urobilinogen Ql (U) Normal mg/dl Normal [facility] Absolute lymphocyte countOrd ered By: Lina Oneil on 05-11-2023 Lymphocytes Auto (Unsp spec) [#/Vol] 2.67 10*3/uL 0.83-4.51 [facility] Basophil percentageOrdered B y: Lina Oneil on 05-11-2023 Basophils/100 WBC (Bld) 0.7 % 0-1 [facility] Eosinophils/100 WBC (Bld) 0.7 % 0-5 [facility] Neutrophils (Bld) [#/Vol] 3.7 10*3/uL 2.0-7.7 [facility] Neutrophils/100 WBC (Bld) 53.3 % 47-70 [facility] WBC (Bld) [#/Vol] 6.9 10*3/uL 4.4-11.0 [facility] Blood erythrocytes count (nu mber/volume)Ordered By: Lina Oneil on 05-11-2023 RBC (Bld) [#/Vol] 4.75 10*6/uL 4.2-5.4 [facility] Blood hemoglobin measurement (mass/volume)Ordered By: Lina Oneil on 05-11-2023 Hemoglobin (Bld) [Mass/Vol] 13.8 g/dL 12.0-15.0 [facility] Blood lymphocytes/100 leukoc ytesOrdered By: Lina Oneil on 05-11-2023 Lymphocytes/100 WBC (Bld) 38.7 % 19-41 [facility] Blood monocytes/100 leukocyt esOrdered By: Lina Oneil on 05-11-2023 Monocytes/100 WBC (Bld) 6.5 % 0-10 [facility] Blood platelet mean volumeOr dered By: Lina Oneil on 05-11-2023 Platelet mean volume (Bld) [Entitic vol] 9.0 fL 6.2-12.0 [facility] Determination of erythrocyte mean corpuscular volume (MCV)Ordered By: Lina Oneil on 05-11-2023 MCV (RBC) [Entitic vol] 90.9 fL 81-99 [facility] Hematocrit Auto (Bld) [Volum e fraction]Ordered By: Lina Oneil on 05-11-2023 Hematocrit (Bld) [Volume fraction] 43.2 % 37-47 [facility] Laboratory - Hematology and Cell countsOrdered By: Lina Oneil on 05-11-2023 Erythrocyte distribution width (RBC) [Entitic vol] 42.6 fL 35.1-43.9 [facility] Erythrocyte distribution width (RBC) [Ratio] 12.9 % 11.6-14.6 [facility] Immature granulocytes/100 WBC (Bld) 0.100 % 0.0-0.9 [facility] Comment on above: IG% - Immature Granu locytes (promyelocytes, myelocytes and metamyelocytes) > 1% indicates that a LEFT SHIFT is Present. MCH (RBC) [Entitic mass] 29.1 pg 27.0-32.0 [facility] Nucleated RBC/100 WBC (Bld) [Ratio] 0 % 0-5 [facility] MCHC Auto (RBC) [Mass/Vol]Or dered By: Lina Oneil on 05-11-2023 MCHC (RBC) [Mass/Vol] 31.9 g/dL 32-36 [facility] No Panel InformationOrdered By: Lina Oneil on 05-11-2023 Thyroid Stimulating Hormone (TSH) 1.42 uIU/mL 0.358-3.74 [facility] Platelets bldOrdered By: Eugenio Oneil on 05-11-2023 Platelets (Bld) [#/Vol] 321 10*3/uL 150-450 [facility] Laboratory - Microbiology an d Antimicrobial susceptibilityon 03-07-2023 S. pyogenes Ag IA Ql (Unsp spec) Negative [facility] Cervical or vagninal specime n microscopic examination by cytology stain (reported ason 12-15-2021 Cytology report Cyto stain Doc (Cvx/Vag) Comment . [facility] Work Phone: Comment on above: The Pap smear is a s creening test designed to aid in thedetection of premalignant and malignant conditions of theuterine cervix. It is not a diagnostic procedure andshould not be used as the sole means of detecting cervicalcancer. Both false-positive and false-negative reports dooccur. Detection in cervical specim en of any of human papilloma virus (HPV) 16, 18, 31, 33,on 12-15-2021 HPV 16+18+31+33+35+39+45+51+ 52+56+58+59+66+68 DNA Probe+sig amp Ql (Cvx) Negative Negative [facility] Work Phone: Comment on above: This nucleic acid am plification test detects fourteen high-risk HPV types (16,18,31,33,35,39,45,51,52,56,58,59,66,68)without differentiation.Performed at: - [facility] [address] [id number] Director: Ayla Storm MD, Phone: [phone] at: = - [facility] [address] [id number] Director: Ayla Storm MD, Phone: [phone] Laboratory - Cytologyon 11-28 Christian Counselor Cyto stain Nom (Cvx/Vag) [ID] Comment . [facility] Work Phone: Comment on above: Shayla Metzger, Cytotec hnologist (ASCP) Laboratory - Miscellaneous t estson 12-15-2021 Service comment (Unsp spec) [Interp] Comment . [facility] Work Phone: Comment on above: This liquid based Th inPrep(R) pap test was screened withthe use of an image guided system. Service comment (Unsp spec) [Interp] . . [facility] Work Phone: No Panel Informationon 12-15 Pathology report final diagnosis Narrative Comment . [facility] Work Phone: Comment on above: NEGATIVE FOR INTRAEP ITHELIAL LESION OR MALIGNANCY. Laboratory - Microbiology an d Antimicrobial susceptibilityon 08-30-2021 SARS-CoV-2 (COVID-19) RNA SB+probe Ql (Unsp spec) Not detected [facility] Work Phone: No Panel Informationon 08-30 Influenza Types A,B Rapid (Clinic) Not detected [facility] Work Phone: Coronavirus 2019on 1 COVID 19 Result [employer]ING [employer]TER Normal Negative for COVID19 (SARS CoV2) by PCR. Reference Lab Comment on above: Result Comment: Nega tive for This test was developed and its performance characteristics determined by 's [facility] [place]. This test has been authorized by FDA under an Emergency Use Authorization (EUA). This test has been validated in accordance with the FDA's Guidance Document Policy for Diagnostics Testing in Laboratories Certified to Perform High Complexity Testing under CLIA prior to Emergency use Authorization for Coronavirus Disease 2019 during the Public Health Emergency issued on July 29, 2019. COVID19 (SARS This test was developed and its performance characteristics determined by 's [facility] [place]. This test has been authorized by FDA under an Emergency Use Authorization (EUA). This test has been validated in accordance with the FDA's Guidance Document Policy for Diagnostics Testing in Laboratories Certified to Perform High Complexity Testing under CLIA prior to Emergency use Authorization for Coronavirus Disease 2019 during the Public Health Emergency issued on July 29, 2019. CoV2) by PCR. This test was developed and its performance characteristics determined by 's [facility] [place]. This test has been authorized by FDA under an Emergency Use Authorization (EUA). This test has been validated in accordance with the FDA's Guidance Document Policy for Diagnostics Testing in Laboratories Certified to Perform High Complexity Testing under CLIA prior to Emergency use Authorization for Coronavirus Disease 2019 during the Public Health Emergency issued on July 29, 2019. Coronavirus 2019on 1 COVID 19 Source SPRING SETTER Normal [facility] Reference Lab Comment on above: Result Comment: Naso pharyngeal Corrected on 05/31 AT 1544: Previously reported as U Swab Corrected on 05/31 AT 1544: Previously reported as U HPVon 09-29-2018 HPV Interp Normal See Interp HPVN [facility] ([place]) Comment on above: Order Comment: Order placed by AP_HPV_ORDER rule from [id number] Result Comment: High Risk HPV Typing: NEGATIVE HPV types 16, 18, 31, 33, 35, 39, 45, 51, 52, 56, 58, 59, 66 and 68 DNA were undetectable or below the pre-set threshold. The candelario High-Risk HPV DNA Test is not intended for use as a screening device for Pap normal women under age 30 and is not intended to substitute for regular Pap screening. The candelario High-Risk HPV DNA Test is designed to augment existing methods for the detection of cervical disease and should be used in conjunction with clinical information derived from other diagnostic and screening tests, physical examinations and full medical history in accordance with appropriate patient management procedures. NOTE: A negative result does not preclude the presence of HPV infection because results depend on adequate specimen collection, absence of inhibitors and sufficient DNA to be detected. See Inter HPVN Performed By: #### H PV #### [place] [address] HPV Source Cervix Normal [facility] ([place]) Comment on above: Order Comment: Order placed by AP_HPV_ORDER rule from [id number] Performed By: #### H PV #### [place] [address] [employer] Cytology Reporton 2018 [employer] Cytology Report . Pathology Reports Accession: Collected Date/Time: Received Date/Time: Pathologist: [id number] 09/26/2018 10:51 EDT 09/26/2018 18:00 EDT [employer] Cytology Report SPECIMEN: Specimen Description: Liquid Prep w/ HPV Specimen: Cervical/Endocervica l Screening or Diagnostic: Screening RELEVANT HISTORY: LMP: 10-26-17 Post : Yes [id number] SPECIMEN ADEQUACY: SATISFACTORY FOR EVALUATION ENDOCERVICAL/TRANSFO RMATIONAL ZONE COMPONENT PRESENT INTERPRETATION/RESUL TS: NEGATIVE FOR INTRAEPITHELIAL LESION OR MALIGNANCY ADJUNCTIVE TESTING: HIGH RISK HPV DNA TESTING ORDERED, REPORT TO FOLLOW UNDER SEPARATE COVER COMMENT: This Pap Test was successfully processed and evaluated with the assistance of the [employer] ThinPrep Test Imaging System. Electronically Signed by Pathology report verified by [facility]. Screened by: SURJIT Electronically signed by Jacinda MEDRANO (ASCP) Sign-Out Date: 09/28/2018 12:19 Performing Lab: [facility], [address] [place] [address] Disclaimer The Pap test is a screening test for cervical cancer. As evidenced by published data, it is subject to both inherent false negative and false positive results. Your patient's results should be interpreted in context with pertinent clinical history including gynecological examination. Normal [facility] ([place]) Comment on above: Performed By: #### G YCR #### [facility] [address] [place] [address] Gram stain for investigation of transfusion reaction Microscopic observation Gram stain Nom (Unsp spec) [facility] Work Phone: Thin prep Papanicolaou smear with manual screening Cytopathology procedure, preparation of smear, genital source Neisseria or beta-hemolytic Streptococcus isolated. [facility] Work Phone: Vital Signs Date Time Vital Sign Value Performing Clinician Facility 11-05-2024 14:33-0400 Body temperature 98.71 [degF] Viridiana Pritchard APRN.EMAIL DEVELOPER Work Phone: 11-05-2024 14:33-0400 Body weight 55.3 kg Viridiana Pritchard APRN.EMAIL DEVELOPER Work Phone: 11-05-2024 14:33-0400 Diastolic blood pressure 69 mm[Hg] Viridiana Pritchard APRN.EMAIL DEVELOPER Work Phone: 11-05-2024 14:33-0400 Heart rate 85 /min Viridiana Pritchard APRN.EMAIL DEVELOPER Work Phone: 11-05-2024 14:33-0400 Respiratory rate 18 /min Viridiana Pritchard APRN.EMAIL DEVELOPER Work Phone: 11-05-2024 14:33-0400 SaO2% (BldA) [Mass fraction] 98 % Viridiana Pritchard APRN.EMAIL DEVELOPER Work Phone: 11-05-2024 14:33-0400 Systolic blood pressure 107 mm[Hg] Viridiana Pritchard APRN.EMAIL DEVELOPER Work Phone: 08-08-2023 21:33-0400 Body temperature 98.7 [degF] [employer]-C Scarlett Vizcaino SPRING SETTER Work Phone: [facility] 08-08-2023 21:33-0400 Diastolic blood pressure 71 mm[Hg] SPRING [employer]TER-C Scarlett Vizcaino SPRING SETTER Work Phone: [facility] 08-08-2023 21:33-0400 Heart rate 76 /min [employer]-C Scarlett Vizcaino SPRING SETTER Work Phone: [facility] 08-08-2023 21:33-0400 Respiratory rate 16 /min [employer]-C Scarlett Vizcaino SPRING SETTER Work Phone: [facility] 08-08-2023 21:33-0400 SaO2% (BldA) [Mass fraction] 99 % [employer]ING [employer]TER-C Scarlett Vizcaino SPRING SETTER Work Phone: [facility] 08-08-2023 21:33-0400 Systolic blood pressure 118 mm[Hg] SPRING SETTER-C Scarlett Vizcaino SPRING SETTER Work Phone: [facility] 08-08-2023 17:24-0400 Body height 160.02 cm [employer]ING [employer]TER-C Scarlett Vizcaino SPRING SETTER Work Phone: [facility] 08-08-2023 17:24-0400 Body mass index (BMI) [Ratio] 20.1 kg/m2 [employer]-C Scarlett Vizcaino SPRING SETTER Work Phone: [facility] 08-08-2023 17:24-0400 Body weight 51.57 kg [employer]ING [employer]TER-C Scarlett Vizcaino SPRING SETTER Work Phone: [facility] 08-02-2023 13:09-0500 Body temperature 98.2 [degF] SPRING SETTER-C Scarlett Vizcaino SPRING SETTER Work Phone: [facility] 08-02-2023 13:09-0500 Diastolic blood pressure 62 mm[Hg] SPRING SETTER-C Scarlett Vizcaino SPRING SETTER Work Phone: [facility] 08-02-2023 13:09-0500 Heart rate 89 /min [employer]-C Scarlett Vizcaino SPRING SETTER Work Phone: [facility] 08-02-2023 13:09-0500 Respiratory rate 16 /min [employer]-C Scarlett Vizcaino SPRING SETTER Work Phone: [facility] 08-02-2023 13:09-0500 SaO2% (BldA) [Mass fraction] 95 % [employer]ING [employer]TER-C Scarlett Vizcaino SPRING SETTER Work Phone: [facility] 08-02-2023 13:09-0500 Systolic blood pressure 95 mm[Hg] SPRING SETTER-C Scarlett Vizcaino SPRING SETTER Work Phone: [facility] 07-31-2023 20:28-0500 Body height 160.02 cm SPRING SETTER-C Scarlett Vizcaino SPRING SETTER Work Phone: [facility] 07-31-2023 20:28-0500 Body mass index (BMI) [Ratio] 20.9 kg/m2 [employer]-C Scarlett Vizcaino SPRING SETTER Work Phone: [facility] 07-31-2023 20:28-0500 Body weight 53.7 kg SPRING [employer]TER-C Scarlett Vizcaino SPRING SETTER Work Phone: [facility] 07-31-2023 03:32-0500 Body temperature 98 [degF] SPRING SETTER-C Scarlett Vizcaino SPRING SETTER Work Phone: [facility] 07-31-2023 03:32-0500 Diastolic blood pressure 80 mm[Hg] SPRING SETTER-C Scarlett Vizcaino SPRING SETTER Work Phone: [facility] 07-31-2023 03:32-0500 Heart rate 85 /min [employer]ING [employer]TER-C Scarlett Vizcaino SPRING SETTER Work Phone: [facility] 07-31-2023 03:32-0500 Respiratory rate 16 /min [employer]ING [employer]TER-C Scarlett Vizcaino SPRING SETTER Work Phone: [facility] 07-31-2023 03:32-0500 SaO2% (BldA) [Mass fraction] 100 % SPRING SETTER-Dana Vizcaino SPRING SETTER Work Phone: [facility] 07-31-2023 03:32-0500 Systolic blood pressure 121 mm[Hg] SPRING SETTER-C Scarlett Vizcaino SPRING SETTER Work Phone: [facility] 07-31-2023 03:23-0500 Body height 160.02 cm SPRING SETTER-C Scarlett Vizcaino SPRING SETTER Work Phone: [facility] 07-31-2023 03:23-0500 Body mass index (BMI) [Ratio] 20.9 kg/m2 [employer]ING [employer]TER-C Scarlett Vizcaino SPRING SETTER Work Phone: [facility] 07-31-2023 03:23-0500 Body weight 53.7 kg SPRING SETTER-C Scarlett Vizcaino SPRING SETTER Work Phone: [facility] 05-18-2023 20:11-0500 Diastolic blood pressure 61 mm[Hg] SPRING SETTER-C Scarlett Vizcaino SPRING SETTER Work Phone: [facility] 05-18-2023 20:11-0500 Heart rate 76 /min [employer]ING [employer]TER-C Scarlett Vizcaino SPRING SETTER Work Phone: [facility] 05-18-2023 20:11-0500 Respiratory rate 12 /min [employer]ING [employer]TER-C Scarlett Vizcaino SPRING SETTER Work Phone: [facility] 05-18-2023 20:11-0500 SaO2% (BldA) [Mass fraction] 99 % [employer]ING [employer]TER-C Scarlett Vizcaino SPRING SETTER Work Phone: [facility] 05-18-2023 20:11-0500 Systolic blood pressure 116 mm[Hg] SPRING SETTER-C Scarlett Vizcaino SPRING SETTER Work Phone: [facility] 05-18-2023 19:35-0500 Inhaled oxygen flow rate 2 L/min [employer]ING [employer]TER-C Scarlett Vizcaino SPRING SETTER Work Phone: [facility] 05-18-2023 18:23-0500 Body height 160.02 cm SPRING SETTER-Dana Vizcaino SPRING SETTER Work Phone: [facility] 05-18-2023 18:23-0500 Body mass index (BMI) [Ratio] 22.4 kg/m2 SPRING SETTER-Dana Vizcaino SPRING SETTER Work Phone: [facility] 05-18-2023 18:23-0500 Body temperature 98.8 [degF] SPRING SETTER-C Scarlett Vizcaino SPRING SETTER Work Phone: [facility] 05-18-2023 18:23-0500 Body weight 57.3 kg SPRING SETTER-C Scarlett Vizcaino SPRING SETTER Work Phone: [facility] 05-07-2023 15:44-0500 Body height 160.02 cm SPRING SETTER-C cSarlett Vizcaino SPRING SETTER Work Phone: [facility] 05-07-2023 15:43-0500 Body mass index (BMI) [Ratio] 22.8 kg/m2 [employer]ING [employer]TER-C Scarlett Vizcaino SPRING SETTER Work Phone: [facility] 05-07-2023 15:43-0500 Body weight 58.62 kg SPRING SETTER-C Scarlett Vizcaino SPRING SETTER Work Phone: [facility] 05-07-2023 15:43-0500 Diastolic blood pressure 78 mm[Hg] SPRING SETTER-C Scarlett Vizcaino SPRING SETTER Work Phone: [facility] 05-07-2023 15:43-0500 Systolic blood pressure 104 mm[Hg] SPRING SETTER-C Scarlett Vizcaino SPRING SETTER Work Phone: [facility] 03-07-2023 08:12-0400 Body mass index (BMI) [Ratio] 23 kg/m2 [employer]-C Scarlett Vizcaino SPRING SETTER Work Phone: [facility] 03-07-2023 08:12-0400 Body weight 58.96 kg SPRING SETTER-C Scarlett Vizcaino SPRING SETTER Work Phone: [facility] 03-07-2023 08:12-0400 Diastolic blood pressure 78 mm[Hg] SPRING SETTER-C Scarlett Vizcaino SPRING SETTER Work Phone: [facility] 03-07-2023 08:12-0400 Heart rate 73 /min [employer]ING [employer]TER-C Scarlett Vizcaino SPRING SETTER Work Phone: [facility] 03-07-2023 08:12-0400 Respiratory rate 16 /min [employer]ING [employer]TER-C Scarlett Vizcaino SPRING SETTER Work Phone: [facility] 03-07-2023 08:12-0400 SaO2% (BldA) [Mass fraction] 98 % SPRING SETTER-Dana Vizcaino SPRING SETTER Work Phone: [facility] 03-07-2023 08:12-0400 Systolic blood pressure 116 mm[Hg] NATALIYA-Dana Vizcaino SPRING SETTER Work Phone: [facility] 01-18-2023 14:23-0400 Body mass index (BMI) [Ratio] 22.6 kg/m2 SPRING SETTER-Dana Vizcaino SPRING SETTER Work Phone: [facility] 01-18-2023 14:23-0400 Body weight 58.05 kg SPRING SETTER-Dana Vizcaino SPRING SETTER Work Phone: [facility] 01-18-2023 14:23-0400 Diastolic blood pressure 74 mm[Hg] SPRING SETTER-Dana Vizcaino SPRING SETTER Work Phone: [facility] 01-18-2023 14:23-0400 Systolic blood pressure 122 mm[Hg] SPRING SETTER-Dana Vizcaino SPRING SETTER Work Phone: [facility] 12-15-2021 08:47-0400 Body height 160.02 cm SPRING SETTERRyne Vizcaino SPRING SETTER Work Phone: [facility] Work Phone: 12-15-2021 08:47-0400 Body mass index (BMI) [Ratio] 23.9 kg/m2 [employer]ING SETTER-Dana Vizcaino SPRING SETTER Work Phone: [facility] Work Phone: 12-15-2021 08:47-0400 Body weight 61.34 kg SPRING SETTER-Dana Vizcaino SPRING SETTER Work Phone: [facility] Work Phone: 12-15-2021 08:47-0400 Diastolic blood pressure 70 mm[Hg] SPRING SETTER-Dana Vizcaino SPRING SETTER Work Phone: [facility] Work Phone: 12-15-2021 08:47-0400 Systolic blood pressure 110 mm[Hg] SPRING SETTER-C Scarlett Vizcaino SPRING SETTER Work Phone: [facility] Work Phone: 08-30-2021 08:24-0400 Body mass index (BMI) [Ratio] 24.7 kg/m2 SPRING SETTER-Dana Vizcaino SPRING SETTER Work Phone: [facility] Work Phone: 08-30-2021 08:24-0400 Body temperature 98.4 [degF] SPRING SETTER-C Scarlett Vizcaino SPRING SETTER Work Phone: [facility] Work Phone: 08-30-2021 08:24-0400 Body weight 63.5 kg [employer]ING [employer]TER-C Scarlett Vizcaino SPRING SETTER Work Phone: [facility] Work Phone: 08-30-2021 08:24-0400 Diastolic blood pressure 68 mm[Hg] SPRING SETTER-C Scarlett Vizcaino SPRING SETTER Work Phone: [facility] Work Phone: 08-30-2021 08:24-0400 Heart rate 96 /min [employer]ING [employer]-C Scarlett Vizcaino SPRING SETTER Work Phone: [facility] Work Phone: 08-30-2021 08:24-0400 Respiratory rate 14 /min [employer]ING SETTER-Dana Vizcaino SPRING SETTER Work Phone: [facility] Work Phone: 08-30-2021 08:24-0400 SaO2% (BldA) [Mass fraction] 98 % SPRING SETTER-Dana Vizcaino SPRING SETTER Work Phone: [facility] Work Phone: 08-30-2021 08:24-0400 Systolic blood pressure 106 mm[Hg] SPRING SETTER-Dana Vizcaino SPRING SETTER Work Phone: [facility] Work Phone: Encounters Encounter Date Encounter Type Care Provider Facility Start: 11-05-2024 End: 11-05-2024 Patient encounter procedure Viridiana Pritchard APRN.EMAIL DEVELOPER Work Phone: [facility] Comment on above: Streptococcus exposu re (Primary Dx); Viral pharyngitis Start: 11-05-2024 End: 11-05-2024 ambulatory VIRIDIANA PRITCHARD Facility:[place] Start: 10-13-2024 End: 10-13-2024 ambulatory Scarlett Vizcaino SPRING SETTER-C Work Phone: [facility] Work Phone: Start: 10-13-2024 End: 10-13-[address] Catie Zambrano MD -Laboratory [place] Work Phone: Start: 10-13-2024 End: 10-13-2024 ambulatory Scarlett Vizcaino NP Facility:[facility] Start: 09-08-2024 End: 09-08-2024 ambulatory Scarlett Vizcaino SPRING SETTER-C Work Phone: [facility] Work Phone: Start: 09-08-2024 End: 09-08-2024 Patient encounter procedure Scarlett Vizcaino SPRING SETTER-C Work Phone: -Laboratory, [place] Work Phone: Start: 09-08-2024 End: 09-08-2024 ambulatory LOLA LEVIN Facility:[facility] Start: 08-24-2024 End: 08-24-2024 ambulatory Scarlett Vizcaino SPRING SETTER-C Work Phone: [facility] Work Phone: Start: 08-24-2024 End: 08-24-[address] Ronnie Morton MD -Laboratory, [place] Work Phone: Start: 08-24-2024 End: 08-24-2024 ambulatory Ronnie Morton Facility:[facility] Start: 2024 End: 2024 ambulatory Scarlett Vizcaino SPRING SETTER Facility:[facility] Start: 03-10-2024 End: 03-10-2024 ambulatory Scarlett Vizcaino SPRING SETTER Facility:[facility] Start: 03-10-2024 End: 03-10-2024 ambulatory Scarlett Vizcaino SPRING SETTER Facility:[facility] Start: 02-14-2024 End: 02-14-2024 ambulatory Scarlett Vizcaino SPRING SETTER Facility:[facility] Start: 11-15-2023 ambulatory Jessee Prakash lity:[facility] Start: 11-03-2023 End: 11-03-2023 Emergency department patient visit SCARLETT VIZCAINO [facility] Start: 08-08-2023 End: 08-08-2023 Emergency department patient visit SPRING SETTER-C Scarlett Vizcaino SPRING SETTER Work Phone: [facility]-Emergency Department Work Phone: Start: 08-02-2023 Non-patient / Non-visit SPRING SETTER-C Lambert Vizcaino SPRING SETTER Work Phone: [facility] Start: 08-01-2023 Non-patient / Non-visit SPRING SETTER-C Lambert Vizcaino SPRING SETTER Work Phone: [facility] Start: 07-31-2023 End: 07-31-2023 Non-patient / Non-visit SPRING SETTER-C Scarlett Vizcaino SPRING SETTER Work Phone: [facility] Work Phone: Start: 07-31-2023 Non-patient / Non-visit SPRING SETTER-C Lambert Vizcaino SPRING SETTER Work Phone: [facility] Start: 07-31-2023 End: 08-02-2023 Evaluation and management of inpatient SPRING SETTER-C Scarlett Vizcaino SPRING SETTER Work Phone: [facility]-Medical Surgical 3 Work Phone: Start: 05-19-2023 End: 05-19-2023 ambulatory SPRING SETTER-C Scarlett Vizcaino SPRING SETTER Work Phone: [facility] Work Phone: Start: 05-19-2023 End: 05-19-2023 Patient encounter procedure SPRING SETTER-Dana Vizcaino SPRING SETTER Work Phone: [facility]-Cat Scan, [facility] Work Phone: Start: 05-18-2023 End: 05-18-2023 Emergency department patient visit SPRING SETTER-C Scarlett Vizcaino SPRING SETTER Work Phone: [facility]-Emergency Department Work Phone: Start: 05-11-2023 End: 05-11-2023 ambulatory SPRING SETTER-C Scarlett Vizcaino SPRING SETTER Work Phone: [facility] Work Phone: Start: 05-11-2023 End: 05-11-2023 Patient encounter procedure SPRING SETTER-C Scarlett Vizcaino SPRING SETTER Work Phone: [facility]-Laboratory, [facility] Start: 05-07-2023 End: 05-07-2023 Patient encounter procedure SPRING SETTER-C Scarlett Vizcaino SPRING SETTER Work Phone: [facility] Work Phone: Start: 03-07-2023 End: 03-07-2023 Patient encounter procedure SPRING SETTER-Dana Vizcaino SPRING SETTER Work Phone: [facility] Work Phone: Start: 02-22-2023 End: 02-22-2023 Patient encounter procedure SPRING SETTER-C Scarlett Vizcaino SPRING SETTER Work Phone: [facility]-Ultrasound, [facility] Work Phone: Start: 01-18-2023 End: 01-18-2023 Patient encounter procedure SPRING SETTER-C Scarlett Vizcaino SPRING SETTER Work Phone: [facility] Work Phone: Start: 12-16-2021 End: 12-16-2021 Patient encounter procedure SPRING SETTER-Dana Vizcaino SPRING SETTER Work Phone: [facility]-Laboratory, Specimen Start: 12-15-2021 End: 12-15-2021 Patient encounter procedure SPRING SETTER-Dana Vizcaino SPRING SETTER Work Phone: [facility] Start: 08-30-2021 End: 08-30-2021 Patient encounter procedure SPRING SETTER-Dana Vizcaino SPRING SETTER Work Phone: [facility] Procedures Date Procedure Procedure Detail Performing Clinician Start: 11-05-2024 Iadna streptococcus group a amplified probe tq Viridianaheather Pritchard APRN.EMAIL DEVELOPER Work Phone: Start: 08-08-2023 Computed tomography of abdomen and pelvis with contrast SPRING SETTER-Dana Vizcaino SPRING SETTER Work Phone: Start: 08-01-2023 Small bowel series SPRING SETTER-Dana Vizcaino SPRING SETTER Work Phone: Start: 07-31-2023 Small bowel series SPRING SETTER-C Scarlett Vizcaino SPRING SETTER Work Phone: Start: 07-31-2023 Plain X-ray abdomen SPRING SETTER- Dana Vizcaino SPRING SETTER Work Phone: Start: 07-31-2023 Plain X-ray abdomen SPRING SETTER- Dana Vizcaino SPRING SETTER Work Phone: Start: 07-30-2023 Computed tomography of abdomen and pelvis with intravenous contrast SPRING SETTER-Dana Vizcaino SPRING SETTER Work Phone: Start: 05-19-2023 MRI of lower extremity SPRING SETTER-Dana Vizcaino SPRING SETTER Work Phone: Start: 05-18-2023 Plain X-ray of tibia and fibula SPRING SETTER-Dana Vizcaino SPRING SETTER Work Phone: Start: 02-22-2023 Pelvic echography SPRING SETTER-Dana Vizcaino SPRING SETTER Work Phone: Start: 02-22-2023 Transvaginal echography SPRING SETTER-Dana Vizcanio SPRING SETTER Work Phone: Cytopathology proced ure, preparation of smear, genital source SPRING SETTERRyne Vizcaino SPRING SETTER Work Phone: Investigation of transfusion reaction SPRING SETTERRyne Vizcaino SPRING SETTER Work Phone: Plan of Treatment Date Care Activity Detail Author Start: 05-20-2030 Urine microalbumin profile DTaP,Tdap,Td Vaccine (7 - Td or Tdap) Start: 01-29-2025 Influenza vaccination Influenza Vaccine (Season Ended) Start: 01-30-2024 Covid-19 Vaccine ( season) Covid-19 Vaccine () Start: 08-08-2023 [facility] Start: 08-02-2023 Patient discharge [facility] Start: 08-01-2023 [facility] Start: 08-01-2023 Incentive spirometry [facility] Start: 08-01-2023 [facility] Start: 07-31-2023 Blood chemistry [facility] Start: 07-31-2023 Plain X-ray abdomen Abdomen Single View (Portable) [facility] Start: 07-31-2023 Application of intermittent pneumatic compression device [facility] Start: 07-31-2023 Following clinical pathway protocol [facility] Start: 07-31-2023 Ambulation without limitation [facility] Start: 07-31-2023 Taking patient vital signs [facility] Start: 07-31-2023 End: 07-31-2023 [facility] Start: 07-31-2023 Plain X-ray abdomen Abdomen Single View (Portable) [facility] Start: 07-31-2023 XR Abdomen Single view [facility] Start: 07-31-2023 Admission procedure [facility] Start: 07-31-2023 Patient referral to dietitian [facility] Start: 07-30-2023 [facility] Start: 05-18-2023 [facility] Start: 05-18-2023 Application short leg splint calf foot APPLICATION LOWER LEG SPLINT [facility] Start: 08-31-2014 Screening for malignant neoplasm of cervix Cervical Cancer Screening Start: 2006 Anxiety Screening Anxiety Screening Start: 2006 Depression Screening Depression Screening Start: 2006 Hepatitis C screening Hepatitis C Screening Start: 2006 HIV screening HIV Screening Anion gap measurement [facility] BUN/Creatinine ratio [facility] Calcium [Mass/volume ] in Serum or Plasma [facility] Carbon dioxide, tota l [Moles/volume] in Serum or Plasma [facility] Chloride [Moles/volu me] in Serum or Plasma [facility] Creatinine [Moles/vo lume] in Serum or Plasma [facility] Erythrocyte mean corpuscular volume determination [facility] Glucose [Mass/volume ] in Serum or Plasma [facility] Hematocrit [Volume Fraction] of Blood [facility] Hemoglobin [Mass/vol ume] in Blood [facility] Leukocytes [#/volume ] in Blood [facility] Mean corpuscular hemoglobin concentration determination [facility] Mean corpuscular hemoglobin determination [facility] Measurement of renal function [facility] Neutrophil count [facility] Neutrophil percent differential count [facility] Patient Education [facility] Work Phone: Patient referral [facility] Work Phone: Platelets [#/volume] in Blood [facility] Potassium [Moles/vol ume] in Serum or Plasma [facility] Red blood cell count [facility] Red cell distributio n width determination [facility] Sodium [Moles/volume ] in Serum or Plasma [facility] Urea nitrogen [Mass/volume] in Serum or Plasma [facility] Immunizations Immunization Date Immunization Notes Care Provider [facility] 02-28-2021 Covid (Moderna) JAZMÍN Rainey SPRING SETTER Work Phone: [facility] 01-31-2021 Nancyid (Moderna) JAZMÍN Rainey SPRING SETTER Work Phone: [facility] 05-20-2020 tetanus toxoid, redu ronen diphtheria toxoid, and acellular pertussis vaccine, adsorbed SPRING SETTERRyne Vizcaino SPRING SETTER Work Phone: [facility] 02-29-2020 Influenza virus vaccine JAZMÍN Vizcaino SPRING SETTER Work Phone: [facility] 03-05-2018 influenza, seasonal, injectable, preservative free Viridiana Conner UROLOGY NURSE.EMAIL DEVELOPER Work Phone: 03-05-2018 Seasonal, quadrivale nt, recombinant, injectable influenza vaccine, preservative free SPRING SETTERRyne Vizcaino SPRING SETTER Work Phone: [facility] 03-05-2018 influenza virus vaccine, unspecified formulation Viridiana Conner UROLOGY NURSE.EMAIL DEVELOPER Work Phone: 06-12-2013 tuberculin skin test ; purified protein derivative solution, intradermal Viridiana Conner UROLOGY NURSE.EMAIL DEVELOPER Work Phone: 05-31-2012 tuberculin skin test ; purified protein derivative solution, intradermal Viridiana Conner UROLOGY NURSE.EMAIL DEVELOPER Work Phone: 01-13-2012 tuberculin skin test ; purified protein derivative solution, intradermal Viridiana Conner UROLOGY NURSE.EMAIL DEVELOPER Work Phone: 12-30-2011 tuberculin skin test ; purified protein derivative solution, intradermal Viridiana Conner UROLOGY NURSE.EMAIL DEVELOPER Work Phone: Work Phone: 01-22-2010 tuberculin skin test ; purified protein derivative solution, intradermal Viridiana Conner UROLOGY NURSE.EMAIL DEVELOPER Work Phone: 01-15-2010 tuberculin skin test ; purified protein derivative solution, intradermal Viridiana Conner UROLOGY NURSE.EMAIL DEVELOPER Work Phone: 11-27-2008 tuberculin skin test ; purified protein derivative solution, intradermal Viridiana Conner UROLOGY NURSE.EMAIL DEVELOPER Work Phone: Work Phone: 11-20-2008 tuberculin skin test ; purified protein derivative solution, intradermal Viridiana Conner UROLOGY NURSE.EMAIL DEVELOPER Work Phone: 12-22-2007 human papilloma viru s vaccine, quadrivalent Viridiana Conner UROLOGY NURSE.EMAIL DEVELOPER Work Phone: Work Phone: 05-25-2007 human papilloma viru s vaccine, quadrivalent Viridiana Pritchard APRN.EMAIL DEVELOPER Work Phone: Work Phone: 02-11-2007 human papilloma viru s vaccine, quadrivalent Viridiana Pritchard APRN.EMAIL DEVELOPER Work Phone: Work Phone: 11-17-2004 Meningococcal, MCV4, unspecified conjugate formulation(groups A, C, Y and W-135) Viridiana Pritchard APRN.EMAIL DEVELOPER Work Phone: 08-27-2003 hepatitis B vaccine, pediatric or pediatric/adolescent dosage Viridiana Pritchard APRN.EMAIL DEVELOPER Work Phone: 08-27-2003 tetanus and diphther ia toxoids, adsorbed, preservative free, for adult use (2 Lf of tetanus toxoid and 2 Lf of diphtheria toxoid) Viridiana Pritchard APRN.EMAIL DEVELOPER Work Phone: 11-03-2001 hepatitis B vaccine, pediatric or pediatric/adolescent dosage Viridiana Pritchard APRN.EMAIL DEVELOPER Work Phone: 01-12-2001 hepatitis B vaccine, pediatric or pediatric/adolescent dosage Viridiana Pritchard APRN.EMAIL DEVELOPER Work Phone: 01-12-2001 measles, mumps and rubella virus vaccine Viridiana Pritchard APRN.EMAIL DEVELOPER Work Phone: 06-02-1993 chicken pox (disease) Alon Pritchard APRN.EMAIL DEVELOPER Work Phone: 11-08-1990 diphtheria, tetanus toxoids and pertussis vaccine Viridiana Pritchard APRN.EMAIL DEVELOPER Work Phone: 11-08-1990 trivalent poliovirus vaccine, live, oral Viridiana Pritchard APRN.EMAIL DEVELOPER Work Phone: 09-01-1990 haemophilus influenz ae type b vaccine, PRP-D conjugate Viridiana Pritchard APRN.EMAIL DEVELOPER Work Phone: 09-01-1990 measles, mumps and rubella virus vaccine Viridiana Conner UROLOGY NURSE.EMAIL DEVELOPER Work Phone: 04-26-1989 tuberculin skin test ; purified protein derivative solution, intradermal Viridianaheather Pritchard APRN.EMAIL DEVELOPER Work Phone: 1990 diphtheria, tetanus toxoids and pertussis vaccine Viridiana Conner UROLOGY NURSE.EMAIL DEVELOPER Work Phone: 1988 diphtheria, tetanus toxoids and pertussis vaccine Viridiana Conner UROLOGY NURSE.EMAIL DEVELOPER Work Phone: 1990 trivalent poliovirus vaccine, live, oral Viridiana James UROLOGY NURSE.EMAIL DEVELOPER Work Phone: 1990 diphtheria, tetanus toxoids and pertussis vaccine Viridiana Conner UROLOGY NURSE.EMAIL DEVELOPER Work Phone: 1990 trivalent poliovirus vaccine, live, oral Viridiana Conner UROLOGY NURSE.EMAIL DEVELOPER Work Phone: Payers Date Payer Category Payer Self-pay [id number] [facility] [id number] 2022 Unknown [id number] 1990 Unknown [id number] Unknown [id number] Unknown [id number] Unknown [id number] Unknown [id number] Unknown [id number] Unknown [id number] Unknown [id number] Unknown [id number] Unknown [id number] Social History Date Type Detail Facility Start: 12-15-2021 End: 05-07-2023 Tobacco smoking status MEIS Unknown if ever smoked [facility] Start: 1990 Sex Assigned At Female [facility] Start: 08-16-2023 Tobacco smoking stat us MEIS Never smoked tobacco (finding) [facility] Start: 08-29-2024 End: 09-11-2024 Sex Female (finding) [facility] Start: 11-05-2024 Alcoholic beverage intake Current non-drinker of alcohol (finding) Start: 11-05-2024 History of Social function Start: 11-05-2024 Tobacco use panel [facility] Work Phone: Start: 1990 Sex assigned at [facility] file [facility] NEGATED: Highlighted row [facility] NEGATED: Highlighted row No Social History Information Available No Social History Information Available [address] [facility] [address] [facility] Work Phone: Goals Date Patient Goal Desired Activity /State Functional Status Date Assessment Result Facility 08-02-2023 Functional status Up ad wanda [facility] Work Phone: 11-15-2013 Are you deaf, or do you have serious difficulty hearing No 11/15/2013 11:25 AM EDT Yanira Hope MA [facility] 11-15-2013 Are you blind, or do you have serious difficulty seeing, even when wearing glasses No 11/15/2013 11:25 AM EDT Yanira Hope MA [facility] 11-15-2013 Do you have serious difficulty walking or climbing stairs No 11/15/2013 11:25 AM EDT Yanira Hope MA [facility] 11-15-2013 Do you have difficul ty dressing or bathing No 11/15/2013 11:25 AM EDT Yanira Hope MA [facility] 11-15-2013 Because of a physica l, mental, or emotional condition, do you have difficulty doing errands alone such as visiting a physician's office or shopping No 11/15/2013 11:25 AM EDT Yanira Hope MA [facility] Mental Status Date Assessment Result Facility 08-02-2023 Cognitive function Voice/Name [facility] Work Phone: 05-18-2023 Cognitive function Awake;Alert;A ppropriate; Follows Commands [facility] Work Phone: 11-15-2013 Because of a physica l, mental, or emotional condition, do you have serious difficulty concentrating, remembering, or making decisions No 11/15/2013 11:25 AM EDT Yanira Hope MA [facility] Clinical Notes 12-15-2021 to 11-05-2024 Viridiana Pritchard APRN.EMAIL DEVELOPER - 11/05/2024 2:59 PM EDT Note Date & Type Note Facility 11-05-2024 Note HNO ID: [id number] Author: VIRIDIANA PRITCHARD APRN.TAYE Service: ? Author Type: Nurse Practitioner Type: Progress Notes Filed: 11/05/2024 14:59 Note Text: [facility] Subjective Daron Dial is a 34 year old female. Patient presents with: Cough: Congestion, ST, hoarse voice x4 days HPI Upper Respiratory Symptoms: - Onset 4 days ago. - Symptoms include cough, ear pain, headache, and sinus congestion. - Reports feeling tired due to congestion-related sleep disturbances. - Initially experienced odynophagia, now resolved. - Describes ear pain as a sensation of fullness rather than sharp pain. - Denies dyspnea. - Recent exposure to strep throat; two children diagnosed over a week ago. Review of Systems Constitutional: (+) fatigue Head: (+) headache Ears/Nose/Mouth/Throat: (+) ear pain, (+) nasal congestion, (+) hoarseness, (-) odynophagia Respiratory: (+) cough, (-) shortness of breath Objective BP 107/69 Pulse 85 Temp 37.1 ?C (98.7 ?F) Resp 18 Wt 55.3 kg (121 lb 14.6 oz) LMP 07/23/2015 SpO2 98% Physical Exam General: No acute distress. HEENT: Erythema in oropharynx, cervical lymphadenopathy. CV: Heart sounds clear. Resp: Breath sounds clear. {1. Streptococcus exposure (Z20.818) - Recent exposure to streptococcal infection from two children who had strep throat over a week ago. - Rapid strep test performed; results negative. 2. Viral pharyngitis (J02.9) - Symptoms include cough, otalgia, headache, and sinus congestion for approximately four days; no dysphagia currently, but was present previously. - Physical exam reveals clear lung sounds, mild erythema in the oropharynx, and palpable lymphadenopathy. - Negative strep test supports viral etiology. - Recommended supportive care including hydration, rest, and rycq-mgc-mpyfpty analgesics as needed. - Patient understands and agrees with the treatment plan. and Recording using [employer] software for draft documentation of the visit was discussed with the patient/authorized uniforms sales representative; all questions welcomed and answered. Patient/authorized uniforms sales representative agreed to proceed MDM Procedures [facility] 11-05-2024 History of Present illness Narrative [facility] Subjective Daron Dial is a 34 year old female. Patient presents with: Cough: Congestion, ST, hoarse voice x4 days HPI Upper Respiratory Symptoms: - Onset 4 days ago. - Symptoms include cough, ear pain, headache, and sinus congestion. - Reports feeling tired due to congestion-related sleep disturbances. - Initially experienced odynophagia, now resolved. - Describes ear pain as a sensation of fullness rather than sharp pain. - Denies dyspnea. - Recent exposure to strep throat; two children diagnosed over a week ago. Review of Systems Constitutional: (+) fatigue Head: (+) headache Ears/Nose/Mouth/Throat: (+) ear pain, (+) nasal congestion, (+) hoarseness, (-) odynophagia Respiratory: (+) cough, (-) shortness of breath Objective BP 107/69 Pulse 85 Temp 37.1 C (98.7 F) Resp 18 Wt 55.3 kg (121 lb 14.6 oz) LMP 07/23/2015 SpO2 98% Physical Exam General: No acute distress. HEENT: Erythema in oropharynx, cervical lymphadenopathy. CV: Heart sounds clear. Resp: Breath sounds clear. {1. Streptococcus exposure (Z20.818) - Recent exposure to streptococcal infection from two children who had strep throat over a week ago. - Rapid strep test performed; results negative. 2. Viral pharyngitis (J02.9) - Symptoms include cough, otalgia, headache, and sinus congestion for approximately four days; no dysphagia currently, but was present previously. - Physical exam reveals clear lung sounds, mild erythema in the oropharynx, and palpable lymphadenopathy. - Negative strep test supports viral etiology. - Recommended supportive care including hydration, rest, and hylo-gbu-djwexuu analgesics as needed. - Patient understands and agrees with the treatment plan. and Recording using [employer] software for draft documentation of the visit was discussed with the patient/authorized uniforms sales representative; all questions welcomed and answered. Patient/authorized uniforms sales representative agreed to proceed MDM Procedures documented in this encounter 08-02-2023 Progress note Note Date/Time August 02, 2023 9:02 am [facility] Medical Records Department [address] [place] [address] Progress Note - Surgery 08/02/23 0902 MR#: [id number] Acct: [id number] Name: DIALDARON CLAIRE Rep #:[id number] : 1990 33 From: Jessee martin MD PCP: Scarlett Vizcaino, SPRING SETTER-C Status:ADM I N Location: MS3 [id number] Subjective Subjective Patient is doing much better today. She reports tolerating clears. She is passing flatus and having bowel movements with no nausea or vomiting or abdominal pain. Objective Data Objective Data Vital Signs: Vital Signs Temp Pulse Resp BP Pulse Ox O2 Del Method 98.4 F 100 16 101/69 100 Room Air 08/02/23 08:06 08/02/23 08:06 08/02/23 08:06 08/02/23 08:06 08/02/23 08:06 08/02/23 08:06 Oxygen Delivery Method Room Air Weight: 118 lb 6.4 oz Body Mass Index (BMI) 20.9 Intake & Output: Intake and Output for Last 24 Hours 07/31/23 08/01/23 08/02/23 23:59 23:59 23:59 Intake Total 2288.33 / 2288.33 2641.59 / 2641.59 Output Total 2900 / 2900 600 / 600 Balance -611.67 / -611.67 2041.59 / 2041.59 Lab / Micro Data 07/31/23 05:29 07/31/23 05:29 Radiography Diagnostic Testing: Radiology Impression Small Bowel X-Ray 08/01/23 08:00 IMPRESSION: No evidence of bowel obstruction. Normal transit time.. Electronically Signed: Krish Stone MD at 10:40 EST , Physical Exam Const oriented x3 and no apparent distress Resp normal respiratory effort GI normal to inspection, nondistended, normoactive bowel sounds Assessment & Plan Assessment/Plan (1) Small bowel obstruction: PLAN: Patient small bowel obstruction seems to have resolved. Patient is tolerating clears and passing gas. She has no abdominal pain. NG was removed yesterday. I will advance her to regular diet today and as long as she tolerates that I will discharge her home. Jessee Ferraro MD Pager: [facility] [address] [place], [place] [address], [address] [place] [address] Office: 08/02/23901 <Electronically signed by Jessee Ferraro MD> Cosigner Signature (if applicable): CC: ~ Signed [facility] Work Phone: 1(992) 217-667303-03-2024 Progress note Author Jessee Ferraro [facility] August 01, 2023 8:43am Note Date/Time August 01, 2023 8:43 am [facility] Medical Records Department [address] [place] [address] Progress Note - Surgery 08/01/23 0840 MR#: [id number] Acct: [id number] Name: DARON DIAL Rep #:[id number] : 1990 33 From: Jessee martin MD PCP: Scarlett Vizcaino NP-C Status:ADM I N Location: [place] [address] Subjective Subjective Patient reports she is passing gas and had a bowel movement has no abdominal pain or nausea today. Objective Data Objective Data Vital Signs: Vital Signs Temp Pulse Resp BP Pulse Ox O2 Del Method 99.4 F H 114 H 16 112/72 99 Room Air 08/01/23 07:49 08/01/23 08:04 08/01/23 07:49 08/01/23 07:49 08/01/23 07:49 08/01/23 08:04 Oxygen Delivery Method Room Air Weight: 118 lb 6.4 oz Body Mass Index (BMI) 20.9 Intake & Output: Intake and Output for Last 24 Hours 07/30/23 07/31/23 08/01/23 23:59 23:59 23:59 Intake Total 2288.33 / 2288.33 1067.92 / 1067.92 Output Total 2900 / 2900 200 / 200 Balance -611.67 / -611.67 867.92 / 867.92 Lab / Micro Data 07/31/23 05:29 07/31/23 05:29 Radiography Diagnostic Testing: Radiology Impression KUB X-Ray 07/31/23 05:18 IMPRESSION: Feeding tube terminates in the proximal stomach Electronically Signed: Terry Hensley MD at 14:03 EST , Small Bowel X-Ray 07/31/23 08:15 IMPRESSION: Limited nonfluoroscopic small bowel follow-through. Contrast is not distinctly visualized in the colon and small bowel loops are dilated suggesting small bowel obstruction correlating with prior CT. Electronically Signed: Vinay Parks DO at 16:33 EST , Physical Exam Const oriented x3 and no apparent distress Resp normal respiratory effort GI soft to palpation and non-tender Assessment & Plan Assessment/Plan (1) Small bowel obstruction: PLAN: The patient did not tolerate her small bowel follow-through yesterday and had nausea and had to be reconnected to suction. We plan on operating today butthis morning the patient is telling me she is feeling much better and passing gas and not having abdominal pain and would like to hold off on surgery. I decided to repeat a small bowel follow-through to have objective prove that she is not obstructed. During the initial shot of the small bowel follow-through there was already contrast in the colon from yesterday's follow-through so I am hopeful that the contrast will make it through in a timely fashion she will tolerate and we can remove the NG and start a diet today. If she does not tolerate small bowel follow-through today the plan will be for surgery tomorrow. Jessee Ferraro MD Pager: [facility] [address] [place] [address], [address] [place] [address] Office: 08/01/23 3823 <Electronically signed by Jessee Ferraro MD> Cosigner Signature (if applicable): CC: ~ Signed [facility] Work Phone: 1(433) 724-122603-02-2024 Progress note Author Jessee Ferraro [facility] March 2nd, 2024 8:16am Note Date/Time July 31, 2023 8:16 am [facility] Medical Records Department [address] [place] [address] Progress Note - Surgery 07/31/23814 MR#: [id number] Acct: [id number] Name: DARON DIAL Rep #:[id number] : 1990 33 From: Jessee martin MD PCP: Scarlett Vizcaino [employer]C Status:ADM I N [place] [facility] [id number] Subjective Subjective Patient reports that she is passing gas this morning. She is more comfortable with the NG tube in place. Objective Data Objective Data Vital Signs: Vital Signs Temp Pulse Resp BP Pulse Ox O2 Del Method 98.0 F 85 16 121/80 H 100 Room Air 07/31/23 03:32 07/31/23 03:32 07/31/23 03:32 07/31/23 03:32 07/31/23 03:32 07/31/23 03:32 Oxygen Delivery Method Room Air Weight: 118 lb 6.4 oz Body Mass Index (BMI) 20.9 Intake & Output: Intake and Output for Last 24 Hours 07/29/23 07/30/23 07/31/23 23:59 23:59 23:59 Output Total 1550 / 1550 Balance -1550 / -1550 Lab / Micro Data 07/31/23 05:29 07/31/23 05:29 Labs: Laboratory Results - last 24 hr 07/30/23 22:10: WBC 12.8 H, RBC 4.50, Hgb 13.0, Hct 40.1, MCV 89.1, MCH 28.9, MCHC 32.4, RDW Std Deviation 40.9, RDW Coeff of Rosa 12.5, Plt Count 333, MPV 8.7, Immature Gran % (Auto) 0.400, Neut % (Auto) 80.1 H, Lymph % (Auto) 14.7 L, Webb % (Auto) 4.1, Eos % (Auto) 0.4, Baso % (Auto) 0.3, Absolute Neuts (auto) 10.3 H, Absolute Lymphs (auto) 1.88, Nucleated RBC % 0, Sodium 140, Potassium 3.8, Chloride 110 H, Carbon Dioxide 27.0, Anion Gap 3 L, BUN 18, Creatinine 0.78, Estim Creat Clear Calc 83.27, Est GFR (MDRD) Af Amer 107, Est GFR (MDRD) Non-Af 89, BUN/Creatinine Ratio 23.0 H, Glucose 115 H, Calcium 9.6, Total Bilirubin 0.70, AST 10 L, ALT 16, Alkaline Phosphatase 80, Total Protein 7.2, Albumin 3.8, Globulin 3.4, Albumin/Globulin Ratio 1.1, Lipase 24, HCG, Quant 2 07/30/23 23:00: Urine Color Yellow, Urine Clarity Sl. Cloudy, Urine pH 9.0, Ur Specific [place] 1.015, Urine Protein 15 H, Urine Glucose (UA) Normal, Urine Ketones Negative, Urine Occult Blood 250 H, Urine Nitrite Negative, Urine Bilirubin Negative, Urine Urobilinogen Normal, Ur Leukocyte Esterase 25 H, UrineRBC 5-10 SEEN, Urine WBC 0 SEEN, Ur Squamous Epith Cells 0-5 SEEN, Amorphous Sediment 1+, Urine Bacteria RARE, Urine Mucus 0 SEEN 07/31/23 05:29: WBC 12.1 H, RBC 4.74, Hgb 13.9, Hct 41.9, MCV 88.4, MCH 29.3, MCHC 33.2, RDW Std Deviation 40.4, RDW Coeff of Rosa 12.3, Plt Count 327, MPV 8.7, Immature Gran % (Auto) 0.300, Neut % (Auto) 81.5 H, Lymph % (Auto) 11.9 L, Webb % (Auto) 6.1, Eos % (Auto) 0.0, Baso % (Auto) 0.2, Absolute Neuts (auto) 9.9 H, Absolute Lymphs (auto) 1.44, Nucleated RBC % 0, Sodium 138, Potassium 3.8, Chloride 110 H, Carbon Dioxide 24.0, Anion Gap 4 L, BUN 17, Creatinine 0.70, Estim Creat Clear Calc 92.79, Est GFR (MDRD) Af Amer 122, Est GFR (MDRD) Non-Af 101, BUN/Creatinine Ratio 24.2 H, Glucose 112 H, Calcium 9.3 Radiography Diagnostic Testing: Radiology Impression Abdomen/Pelvis CT 07/30/23 23:41 IMPRESSION: 1. High-grade mid small bowel obstruction. Etiology unclear, primary considerations include adhesions, internal hernia, and stricture or acute focal inflammation. No visible mass. Multiple collapsed mid-distal small bowel loops appear mildly thick-walled. Zone of transition is estimated to be in the lower abdomen. 2. There is abrupt narrowing of the third part of the duodenum between the SMA and aorta suggesting some degree of SMA syndrome but the pertinent acute obstruction appears to be more distal involving mid small bowel. 3. No free air, free fluid, or suspicious vascular findings. Tabletlike structure or stone in the cecum appears incidentally noted. Electronically Signed: Jennifer Humphreys MD at 0:56 EST , ADDENDUM: 07/31/23 0106 IMPRESSION: 1. High-grade mid small bowel obstruction. Etiology unclear, primary considerations include adhesions, internal hernia, and stricture or acute focal inflammation. No visible mass. Multiple collapsed mid-distal small bowel loops appear mildly thick-walled. Zone of transition is estimated to be in the lower abdomen. 2. There is abrupt narrowing of the third part of the duodenum between the SMA and aorta suggesting some degree of SMA syndrome but the pertinent acute obstruction appears to be more distal involving mid small bowel. 3. No free air, free fluid, or suspicious vascular findings. Tabletlike structure or stone in the cecum appears incidentally noted. N.B. : The above Results were Read Back by Jennifer Humphreys MD to Rebeca Kumari RN, and understanding confirmed on 07/31/2023 00:59:46 (ET). Electronically Signed: Jennifer Humphreys MD at 0:56 EST , KUB X-Ray 07/31/23 02:35 IMPRESSION: Enteric tube in the body of the stomach to the left of midline. Adequately positioned. Electronically Signed: Jennifer Humphreys MD at 3:51 EST , Physical Exam Const oriented x3 and no apparent distress Resp normal respiratory effort GI soft to palpation and non-tender Assessment & Plan Assessment/Plan (1) Small bowel obstruction: PLAN: The patient still had dark fluid from her NG this morning. It is only been in for a few hours but the patient would like to try to avoid surgery today. She says she passed a little gas this morning as she did have a bowel movement in the ER yesterday. I will try a small bowel follow-through with Gastrografin today. If she does not tolerate the follow-through or if it does not reach the colon I will plan for surgery tomorrow with NG decompression overnight. Jessee Ferraro MD Pager: [facility] [address] [place] [address], [address] [place] [address] Office: 07/31/23 0816 <Electronically signed by Jessee Ferraro MD> Cosigner Signature (if applicable): CC: ~ Signed [facility] Work Phone: 1(575) 997-788303-02-2024 Discharge summary Author Rob Max [facility] July 31, 2023 2:39am Note Date/Time July 30, 2023 9:55 pm [facility] Medical Records Department [address] [place] [address] Emergency Department Summary 07/30/23 MR#: [id number] Acct: [id number] Name: DARON DIAL Rep #:[id number] : 1990 33 From: Vicente Cabrera DO PCP: Scarlett Vizcaino NP-C Status:ADM I N [place] [facility] [id number] HPI HPI - GI History of Present Illness Chief Complaint: Abd Pain Narrative Narrative: Patient presenting with epigastric abdominal pain initially had she had some diffuse abdominal pain. This started today at about 130 while eating lunch. She states she had some veggie stirfry and a veggie pizza with red sauce on it and about 30 minutes after she ate she started having epigastric pain and dyspepsia. She took an omeprazole. She did not try Tums or Pepcid because of the flavor. She states she did not get any relief from this. She did not try any Tylenol or ibuprofen. She states the pain waxed and waned all afternoon. She has not had any fevers. Patient denies vomiting. Denies diarrhea or constipation. No vaginal complaints. No urinary complaints. Patient states she has had tubal ligation and does not current . PFSH PFS Medical History Gestational diabetes mellitus (GDM) Hx of thyroiditis Infertility Home Medications drospirenone 3 mg-estetrol 14.2 mg (28) tablet ([facility] See Rx InstructionsPO .COMPLEX #28 tabs 05/07/23 [Rx Last Taken Unknown] hydrocodone-acetaminophen 5-325mg 5mg-325mg 1 tab PO Q6H PRN PRN Pain 5 days #20TABLETS 05/18/23 [Rx Last Taken Unknown] Allergy/AdvReac Type Severity Reaction Status Date / Time Sulfa (Sulfonamide Allergy Mild blisters Verified 07/30/23 21:12 Antibiotics) Family History Grandfather Hypertension Surgical History History of bilateral salpingectomy History of mandibular surgery Social History Smoking Status: Never smoker alcohol intake: never substance use type: does not use caffeine: Yes what type of physical activity do you participate in: none seatbelt use: always do you feel safe at home: Yes additional social history: Iciwhhx-Icwm-Zjsc/Sold 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[employer] ED Constitutional Constitutional ED: Denies chills, fever(s) or sweats Eyes Eyes: Denies blurry vision or change in vision ENT ENT ED: Denies ear pain or sore throat Cardiovascular Cardiovascular: Denies chest pain, palpitations or racing heartbeat Respiratory/Chest Respiratory/Chest: Denies cough, dyspnea or sputum Gastrointestinal Gastrointestinal: Reports abdominal pain and other Details: Dyspepsia ; Denies constipation, diarrhea, nausea or vomiting Genitourinary Genitourinary ED: Denies dysuria, hematuria or urinary frequency Musculoskeletal Musculoskeletal: Denies arthralgias, myalgias or neck pain Integumentary Denies abscess, Abrasions or rash Neurologic Neurologic: Denies headache(s), paresthesias or weakness Psychiatric Psychiatric: Denies anxiety, depression, suicidal ideation or suicidal thoughts Endocrine Endocrinology: Denies polydipsia or polyuria EXAM Physical Exam Const Vital Signs: 07/30/23 21:12 Temperature 98.5 F Temperature Source Temporal Pulse Rate 76 Respiratory Rate 18 Blood Pressure 112/70 Blood Pressure Mean 84 Pulse Ox 100 Oxygen Delivery Method Room Air Positive well nourished General Appearance ED: NAD and pallor HEENT Reports moist mucous membranes normocephalic and atraumatic Eyes PERRL and EOMs intact bilaterally Resp normal respiratory effort Cardio regular rate and regular rhythm GI GI Narrative: Mild epigastric pain. No peritoneal signs. Back/Spine no CVA tenderness Neuro CN's II-XII intact bilaterally Sensorium / Orientation: alert Motor Exam: strength 5/5 throughout Psych mental status grossly normal and thought process normal Mood & Affect: Negative for depressed or anxious Skin General Skin Exam: jaundice and pallor MDM MDM MDM Narrative Medical decision making narrative: 33-year-old female with epigastric pain and diffuse abdominal exam reported her abdominal exam is benign. Vital signs are stable she is afebrile. He is will obtain a CBC to assess white blood cell count, hemoglobin and platelet. CMP to assess liver function enzymes. Lipase Pharyngitis. I do believe this is likely stomach related so I will give her GI cocktail, Toradol, Bentyl. On reevaluation patient still having abdominal pain. White blood cell count is 12.8. Hemoglobin 13.0. Platelets significantly elevated renal function electrolytes within normal limits. LFTs are normal. Lipase normal. hCG negative. Patient given morphine and Zofran as she is not feeling any better. We discussed getting CT of the pelvis with IV contrast thatthis will be obtained. This will be signed out to incoming ED physician for monitoring disposition. Impression: 1. abdominal pain 2. Leukocytosis Lab Data Labs: Laboratory Results - last 24 hr 07/30/23 07/30/23 22:10 23:00 WBC 12.8 H RBC 4.50 Hgb 13.0 Hct 40.1 MCV 89.1 MCH 28.9 MCHC 32.4 RDW Std Deviation 40.9 RDW Coeff of Rosa 12.5 Plt Count 333 MPV 8.7 Immature Gran % (Auto) 0.400 Neut % (Auto) 80.1 H Lymph % (Auto) 14.7 L Webb % (Auto) 4.1 Eos % (Auto) 0.4 Baso % (Auto) 0.3 Absolute Neuts (auto) 10.3 H Absolute Lymphs (auto) 1.88 Nucleated RBC % 0 Sodium 140 Potassium 3.8 Chloride 110 H Carbon Dioxide 27.0 Anion Gap 3 L BUN 18 Creatinine 0.78 Estim Creat Clear Calc 83.27 Est GFR (MDRD) Af Amer 107 Est GFR (MDRD) Non-Af 89 BUN/Creatinine Ratio 23.0 H Glucose 115 H Calcium 9.6 Total Bilirubin 0.70 AST 10 L ALT 16 Alkaline Phosphatase 80 Total Protein 7.2 Albumin 3.8 Globulin 3.4 Albumin/Globulin Ratio 1.1 Lipase 24 HCG, Quant 2 Urine Color Yellow Urine Clarity Sl. Cloudy Urine pH 9.0 Ur Specific [place] 1.015 Urine Protein 15 H Urine Glucose (UA) Normal Urine Ketones Negative Urine Occult Blood 250 H Urine Nitrite Negative Urine Bilirubin Negative Urine Urobilinogen Normal Ur Leukocyte Esterase 25 H Urine RBC 5-10 SEEN Urine WBC 0 SEEN Ur Squamous Epith Cells 0-5 SEEN Amorphous Sediment 1+ Urine Bacteria RARE Urine Mucus 0 SEEN Discharge Plan Triage Chief Complaint: Abd Pain ED Provider: Vicente Cabrera Dx/Rx/DC Orders Prescriptions: No Action Nextstellis 3 mg- 14.2 mg (28) tablet See Rx Instructions PO .COMPLEX Qty: 28 12RF Rx Instructions: take 1-PINK tablet once daily for 24 days/days 1-24 of cycle; take 1-WHITE tablet once daily for 4 days/days 25-28 of cycle. PO hydrocodone-acetaminophen [hydrocodone-acetaminophen] 5-325 mg tablet 1 tab PO Q6H PRN PRN (Reason: Pain) 5 Days Qty: 20 0RF Primary Care Provider: Scarlett Vizcaino NP Referrals: Scarlett Vizcaino NP, [employer] [Primary Care Provider] - What to do if you have Problems For any increased pain, shortness of breath, bleeding, nausea or vomiting, chestpain, or any unexpected problems, contact your Primary Care Provider. Call [facility] ([phone]) or report to the closest Emergency Room. Call 911 if necessary. 07/30/23 2344 <Electronically signed by Vicente Cabrera DO> Cosigner Signature (if applicable): CC: JAZMÍN Vizcaino ~ Signed ADDENDUM by Rob Max DO on 07/31/23 at 0239 Patient was signed out to me while awaiting results of her CT scan. CT scan showed changes consistent with a high-grade bowel obstruction. Secondary to this the case was discussed with general surgery on-call Dr. Ferraro. He reviewed the CT scan and does agree with the radiologist results and recommends NG tube placement for stomach decompression as well as admission to his service. Patient was informed of this and was admitted to the general surgery service instable condition 07/31/23 0239<Electronically signed by Rob Max DO> Cosigner Signature (if applicable): cc: JAZMÍN Vizcaino ~* Signed [facility] Work Phone: 1(198) 784-435803-02-2024 History and physical note Author Jessee Ferraro [facility] July 31, 2023 2:24am Note Date/Time July 31, 2023 2:24 am [facility] Medical Records Department [address] [place] [address] H&P Exam - Surgical 07/31/23 0222 MR#: [id number] Acct: [id number] Name: DARON DIAL Rep #:[id number] : 1990 33 From: Jessee martin MD PCP: JAZMÍN Moreau Status:REG E R Location: ED HPI - General HPI Narrative DARON DIAL, is a 33 F who presents with abdominal pain and nausea. Patient reports this started today. She says she has never had a bowel obstruction before. She denies vomiting but she does have nausea. She says she has epigastric pain and heartburn. She did have a bowel movement since being in theER. She denies fevers or chills. [facility] Medical History Gestational diabetes mellitus (GDM) Hx of thyroiditis Infertility Home Medications drospirenone 3 mg-estetrol 14.2 mg (28) tablet ([facility]) See Rx InstructionsPO .COMPLEX #28 tabs 05/07/23 [Rx Last Taken Unknown] hydrocodone-acetaminophen 5-325mg 5mg-325mg 1 tab PO Q6H PRN PRN Pain 5 days #20TABLETS 05/18/23 [Rx Last Taken Unknown] Allergy/AdvReac Type Severity Reaction Status Date / Time Sulfa (Sulfonamide Allergy Mild blisters Verified 07/30/23 21:12 Antibiotics) Family History Grandfather Hypertension Surgical History History of bilateral salpingectomy History of mandibular surgery Social History Smoking Status: Never smoker alcohol intake: never substance use type: does not use caffeine: Yes what type of physical activity do you participate in: none seatbelt use: always do you feel safe at home: Yes additional social history: Vjdomsi-Mzof-Gwup/Sold 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 Constitutional Constitutional: Denies anorexia, chills or fatigue Eyes Eyes: Denies blurry vision ENT HEENT: Denies abnormal hearing Cardiovascular Cardiovascular: Denies chest pain Respiratory/Chest Respiratory/Chest: Denies cough or dyspnea Gastrointestinal Gastrointestinal: Reports abdominal pain and nausea; Denies coffee ground emesisor vomiting Genitourinary Genitourinary: Denies change in urinary stream Musculoskeletal Musculoskeletal: Denies abnormal gait Integumentary Integumentary: Denies jaundice Neurologic Neurologic: Denies dizziness Psychiatric Psychiatric: Reports anxiety Endocrine Endocrinology: Denies heat intolerance Hematologic/Lymphatic Hematologic/Lymphatic: Denies easy bleeding Vital Signs Vital Signs Vital Signs: 07/30/23 21:12 07/31/23 01:43 Temperature 98.5 F Temperature Source Temporal Pulse Rate 76 100 Respiratory Rate 18 18 Blood Pressure 112/70 121/80 H Blood Pressure Mean 84 93 Pulse Ox 100 100 Oxygen Delivery Method Room Air Room Air Weight Weight: 118 lb 6.4 oz Body Mass Index (BMI) 20.9 Physical Exam Const oriented x3 and no apparent distress Resp normal respiratory effort Cardio regular rate and regular rhythm GI soft to palpation and non-tender Inspection: abdominal distention Extremity normal to inspection Results Lab / Micro Data 07/30/23 22:10 07/30/23 22:10 Labs: Laboratory Results - last 24 hr 07/30/23 22:10: WBC 12.8 H, RBC 4.50, Hgb 13.0, Hct 40.1, MCV 89.1, MCH 28.9, MCHC 32.4, RDW Std Deviation 40.9, RDW Coeff of Rosa 12.5, Plt Count 333, MPV 8.7, Immature Gran % (Auto) 0.400, Neut % (Auto) 80.1 H, Lymph % (Auto) 14.7 L, Webb % (Auto) 4.1, Eos % (Auto) 0.4, Baso % (Auto) 0.3, Absolute Neuts (auto) 10.3 H, Absolute Lymphs (auto) 1.88, Nucleated RBC % 0, Sodium 140, Potassium 3.8, Chloride 110 H, Carbon Dioxide 27.0, Anion Gap 3 L, BUN 18, Creatinine 0.78, Estim Creat Clear Calc 83.27, Est GFR (MDRD) Af Amer 107, Est GFR (MDRD) Non-Af 89, BUN/Creatinine Ratio 23.0 H, Glucose 115 H, Calcium 9.6, Total Bilirubin 0.70, AST 10 L, ALT 16, Alkaline Phosphatase 80, Total Protein 7.2, Albumin 3.8, Globulin 3.4, Albumin/Globulin Ratio 1.1, Lipase 24, HCG, Quant 2 07/30/23 23:00: Urine Color Yellow, Urine Clarity Sl. Cloudy, Urine pH 9.0, Ur Specific [place] 1.015, Urine Protein 15 H, Urine Glucose (UA) Normal, Urine Ketones Negative, Urine Occult Blood 250 H, Urine Nitrite Negative, Urine Bilirubin Negative, Urine Urobilinogen Normal, Ur Leukocyte Esterase 25 H, UrineRBC 5-10 SEEN, Urine WBC 0 SEEN, Ur Squamous Epith Cells 0-5 SEEN, Amorphous Sediment 1+, Urine Bacteria RARE, Urine Mucus 0 SEEN Imaging Radiology Impression Abdomen/Pelvis CT 07/30/23 23:41 IMPRESSION: 1. High-grade mid small bowel obstruction. Etiology unclear, primary considerations include adhesions, internal hernia, and stricture or acute focal inflammation. No visible mass. Multiple collapsed mid-distal small bowel loops appear mildly thick-walled. Zone of transition is estimated to be in the lower abdomen. 2. There is abrupt narrowing of the third part of the duodenum between the SMA and aorta suggesting some degree of SMA syndrome but the pertinent acute obstruction appears to be more distal involving mid small bowel. 3. No free air, free fluid, or suspicious vascular findings. Tabletlike structure or stone in the cecum appears incidentally noted. Electronically Signed: Jennifer Humphreys MD at 0:56 EST , ADDENDUM: 07/31/23 0106 IMPRESSION: 1. High-grade mid small bowel obstruction. Etiology unclear, primary considerations include adhesions, internal hernia, and stricture or acute focal inflammation. No visible mass. Multiple collapsed mid-distal small bowel loops appear mildly thick-walled. Zone of transition is estimated to be in the lower abdomen. 2. There is abrupt narrowing of the third part of the duodenum between the SMA and aorta suggesting some degree of SMA syndrome but the pertinent acute obstruction appears to be more distal involving mid small bowel. 3. No free air, free fluid, or suspicious vascular findings. Tabletlike structure or stone in the cecum appears incidentally noted. N.B. : The above Results were Read Back by Jennifer Humphreys MD to Rebeca Kumari RN, and understanding confirmed on 07/31/2023 00:59:46 (ET). Electronically Signed: Jennifer Humphreys MD at 0:56 EST , Assessment & Plan Assessment/Plan (1) Small bowel obstruction: PLAN: The patient was having nausea and epigastric pain and had a CT scan which showed high-grade small bowel obstruction. The patient has had a in the past and this may be from adhesions. They did not see any swirling of the mesentery. Currently she is comfortable after morphine and not having any abdominal pain. She is still having nausea. After reviewing the CT scan it appears there is copious amount of fluid in her stomach I will recommend NG decompression. I will admit her and start her on IV fluids and order a KUB for the morning but I informed her that we likely will be performing surgery tomorrow as she has a high-grade obstruction. I explained that NG decompressionwould assist in being able to perform the surgery laparoscopically. Patient understands and is willing to proceed. Jessee Ferraro MD Pager: [facility] [address], [address] [place] [address] Office: 07/31/23 0224 <Electronically signed by Jessee Ferraro MD> Cosigner Signature (if applicable): CC: SPRING SETTER-C Scarlett Vizcaino; Dr. Jessee Ferraro MD~ Signed [facility] Work Phone: 1(285) 744-663703-01-2024 Discharge summary Author [facility] July 31, 2023 2:39am Note Date/Time July 30, 2023 9:55 pm [facility] Medical Records Department [address] [place] [address] Emergency Department Summary 07/30/23 MR#: [id number] Acct: [id number] Name: DARON DIAL Rep #:[id number] : 1990 33 From: Vicente Cabrera DO PCP: JAZMÍN Moreau Status:ADM I N Location: [place] [address]-1 HPI HPI - GI History of Present Illness Chief Complaint: Abd Pain Narrative Narrative: Patient presenting with epigastric abdominal pain initially had she had some diffuse abdominal pain. This started today at about 130 while eating lunch. She states she had some veggie stirfry and a veggie pizza with red sauce on it and about 30 minutes after she ate she started having epigastric pain and dyspepsia. She took an omeprazole. She did not try Tums or Pepcid because of the flavor. She states she did not get any relief from this. She did not try any Tylenol or ibuprofen. She states the pain waxed and waned all afternoon. She has not had any fevers. Patient denies vomiting. Denies diarrhea or constipation. No vaginal complaints. No urinary complaints. Patient states she has had tubal ligation and does not current . [facility] Medical History Gestational diabetes mellitus (GDM) Hx of thyroiditis Infertility Home Medications drospirenone 3 mg-estetrol 14.2 mg (28) tablet (Nextstellis) See Rx InstructionsPO .COMPLEX #28 tabs 05/07/23 [Rx Last Taken Unknown] hydrocodone-acetaminophen 5-325mg 5mg-325mg 1 tab PO Q6H PRN PRN Pain 5 days #20TABLETS 05/18/23 [Rx Last Taken Unknown] Allergy/AdvReac Type Severity Reaction Status Date / Time Sulfa (Sulfonamide Allergy Mild blisters Verified 07/30/23 21:12 Antibiotics) Family History Grandfather Hypertension Surgical History History of bilateral salpingectomy History of mandibular surgery Social History Smoking Status: Never smoker alcohol intake: never substance use type: does not use caffeine: Yes what type of physical activity do you participate in: none seatbelt use: always do you feel safe at home: Yes additional social history: Johwclq-Igjb-[employer]/Sold 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 [employer] ED Constitutional Constitutional ED: Denies chills, fever(s) or sweats Eyes Eyes: Denies blurry vision or change in vision ENT ENT ED: Denies ear pain or sore throat Cardiovascular Cardiovascular: Denies chest pain, palpitations or racing heartbeat Respiratory/Chest Respiratory/Chest: Denies cough, dyspnea or sputum Gastrointestinal Gastrointestinal: Reports abdominal pain and other Details: Dyspepsia ; Denies constipation, diarrhea, nausea or vomiting Genitourinary Genitourinary ED: Denies dysuria, hematuria or urinary frequency Musculoskeletal Musculoskeletal: Denies arthralgias, myalgias or neck pain Integumentary Denies abscess, Abrasions or rash Neurologic Neurologic: Denies headache(s), paresthesias or weakness Psychiatric Psychiatric: Denies anxiety, depression, suicidal ideation or suicidal thoughts Endocrine Endocrinology: Denies polydipsia or polyuria EXAM Physical Exam Const Vital Signs: 07/30/23 21:12 Temperature 98.5 F Temperature Source Temporal Pulse Rate 76 Respiratory Rate 18 Blood Pressure 112/70 Blood Pressure Mean 84 Pulse Ox 100 Oxygen Delivery Method Room Air Positive well nourished General Appearance ED: NAD and pallor HEENT Reports moist mucous membranes normocephalic and atraumatic Eyes PERRL and EOMs intact bilaterally Resp normal respiratory effort Cardio regular rate and regular rhythm GI GI Narrative: Mild epigastric pain. No peritoneal signs. Back/Spine no CVA tenderness Neuro CN's II-XII intact bilaterally Sensorium / Orientation: alert Motor Exam: strength 5/5 throughout Psych mental status grossly normal and thought process normal Mood & Affect: Negative for depressed or anxious Skin General Skin Exam: jaundice and pallor MDM MDM MDM Narrative Medical decision making narrative: 33-year-old female with epigastric pain and diffuse abdominal exam reported her abdominal exam is benign. Vital signs are stable she is afebrile. He is will obtain a CBC to assess white blood cell count, hemoglobin and platelet. CMP to assess liver function enzymes. Lipase Pharyngitis. I do believe this is likely stomach related so I will give her GI cocktail, Toradol, Bentyl. On reevaluation patient still having abdominal pain. White blood cell count is 12.8. Hemoglobin 13.0. Platelets significantly elevated renal function electrolytes within normal limits. LFTs are normal. Lipase normal. hCG negative. Patient given morphine and Zofran as she is not feeling any better. We discussed getting CT of the pelvis with IV contrast thatthis will be obtained. This will be signed out to incoming ED physician for monitoring disposition. Impression: 1. abdominal pain 2. Leukocytosis Lab Data Labs: Laboratory Results - last 24 hr 07/30/23 07/30/23 22:10 23:00 WBC 12.8 H RBC 4.50 Hgb 13.0 Hct 40.1 MCV 89.1 MCH 28.9 MCHC 32.4 RDW Std Deviation 40.9 RDW Coeff of Rosa 12.5 Plt Count 333 MPV 8.7 Immature Gran % (Auto) 0.400 Neut % (Auto) 80.1 H Lymph % (Auto) 14.7 L Webb % (Auto) 4.1 Eos % (Auto) 0.4 Baso % (Auto) 0.3 Absolute Neuts (auto) 10.3 H Absolute Lymphs (auto) 1.88 Nucleated RBC % 0 Sodium 140 Potassium 3.8 Chloride 110 H Carbon Dioxide 27.0 Anion Gap 3 L BUN 18 Creatinine 0.78 Estim Creat Clear Calc 83.27 Est GFR (MDRD) Af Amer 107 Est GFR (MDRD) Non-Af 89 BUN/Creatinine Ratio 23.0 H Glucose 115 H Calcium 9.6 Total Bilirubin 0.70 AST 10 L ALT 16 Alkaline Phosphatase 80 Total Protein 7.2 Albumin 3.8 Globulin 3.4 Albumin/Globulin Ratio 1.1 Lipase 24 HCG, Quant 2 Urine Color Yellow Urine Clarity Sl. Cloudy Urine pH 9.0 Ur Specific [place] 1.015 Urine Protein 15 H Urine Glucose (UA) Normal Urine Ketones Negative Urine Occult Blood 250 H Urine Nitrite Negative Urine Bilirubin Negative Urine Urobilinogen Normal Ur Leukocyte Esterase 25 H Urine RBC 5-10 SEEN Urine WBC 0 SEEN Ur Squamous Epith Cells 0-5 SEEN Amorphous Sediment 1+ Urine Bacteria RARE Urine Mucus 0 SEEN Discharge Plan Triage Chief Complaint: Abd Pain ED Provider: Vicente Cabrera Dx/Rx/DC Orders Prescriptions: No Action Nextstellis 3 mg- 14.2 mg (28) tablet See Rx Instructions PO .COMPLEX Qty: 28 12RF Rx Instructions: take 1-PINK tablet once daily for 24 days/days 1-24 of cycle; take 1-WHITE tablet once daily for 4 days/days 25-28 of cycle. PO hydrocodone-acetaminophen [hydrocodone-acetaminophen] 5-325 mg tablet 1 tab PO Q6H PRN PRN (Reason: Pain) 5 Days Qty: 20 0RF Primary Care Provider: Scarlett Vizcaino SPRING SETTER Referrals: Scarlett Vizcaino SPRING SETTER, SPRING SETTER-C [Primary Care Provider] - What to do if you have Problems For any increased pain, shortness of breath, bleeding, nausea or vomiting, chestpain, or any unexpected problems, contact your Primary Care Provider. Call [facility] ([phone]) or report to the closest Emergency Room. Call 911 if necessary. 07/30/23 7004 <Electronically signed by Vicente Cabrera DO> Cosigner Signature (if applicable): CC: SPRING SETTER-C Scarlett Vizcaino ~ Signed ADDENDUM by Rob Max DO on 07/31/23 at 0233 Patient was signed out to me while awaiting results of her CT scan. CT scan showed changes consistent with a high-grade bowel obstruction. Secondary to this the case was discussed with general surgery on-call Dr. Ferraro. He reviewed the CT scan and does agree with the radiologist results and recommends NG tube placement for stomach decompression as well as admission to his service. Patient was informed of this and was admitted to the general surgery service instable condition 07/31/23 0239<Electronically signed by Rob Max DO> Cosigner Signature (if applicable): cc: JAZMÍN Vizcaino ~* Signed [facility] Work Phone: 1(252) 827-965912-19-2023 Discharge summary Author Jhonatan Gil [facility] May 18, 2023 7:38pm Note Date/Time May 18, 2023 6:33pm [facility] Medical Records Department [address] [place] [address] Emergency Department Summary 05/18/23 MR#: [id number] Acct: [id number] Name: DARON DIAL Rep #:[id number] : 1990 33 From: Jhonatan Gil MD PCP: JAZMÍN Moreau Status:PRE E R Location: ED HPI History of Present Illness Chief Complaint: Lower Extremity Injury Detail of Chief Complaint: Injury right lower extremity/ankle Informant: patient Occured/Mechanism Mechanism/Context: Yes fall Comment: Patient was carrying her son down steps. She slipped on the ice. She presents by ambulance because she was unable to bear weight. Onset/Context/Timing Context: Sudden Onset Timing: Continuous Quality of Pain: Dull and Aching Location: Right distal leg Current Severity: Mild Maximum Severity: Severe Worsened by: Any type of movement Relieved by: Nothing Associated Symptoms Associated Symptoms: Positive for Loss of Funtion Narrative Narrative: Patient is a 33-year-old healthy woman on control pills only. She has allergy to sulfa. She presents by squad after injuring her right leg. She declined IV medication by squad. She is now requesting pain medicine. She denies paresthesia, anesthesia or motor weakness. She denies head injury. She denies nausea or vomiting. She denies neck pain. Prior similar symptoms: No Recent Illness/Hospitalization: No PFSH PFSH Medical History Gestational diabetes mellitus (GDM) Hx of thyroiditis Infertility Home Medications drospirenone 3 mg-estetrol 14.2 mg (28) tablet (Nextstellis) See Rx InstructionsPO .COMPLEX #28 tabs 05/07/23 [Rx Last Taken Unknown] hydrocodone-acetaminophen 5-325mg 5mg-325mg 1 tab PO Q6H PRN PRN Pain 5 days #20TABLETS 05/18/23 [Rx Last Taken Unknown] Allergy/AdvReac Type Severity Reaction Status Date / Time Sulfa (Sulfonamide Allergy Mild blisters Verified 05/18/23 18:30 Antibiotics) Family History Grandfather Hypertension Surgical History History of bilateral salpingectomy History of mandibular surgery Social History Smoking Status: Never smoker alcohol intake: never substance use type: does not use caffeine: Yes what type of physical activity do you participate in: none seatbelt use: always do you feel safe at home: Yes additional social history: Brsfmgx-Hbuk-Yaal/Sold 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 Cardiovascular Cardiovascular: Denies chest pain or palpitations Respiratory/Chest Respiratory/Chest: Denies dyspnea or dyspnea on exertion Gastrointestinal Gastrointestinal: Denies nausea or vomiting Neurologic Neurologic: Denies paresthesias or weakness Hematologic/Lymphatic Hematologic/Lymphatic: Denies easy bleeding or easy bruising EXAM Physical Exam Const Vital Signs: 05/18/23 18:23 05/18/23 19:11 05/18/23 19:16 Temperature 98.8 F Temperature Source Oral Pulse Rate 86 89 Pulse Rate [1 (Initial Baseline)] 88 Pulse Rate [2] 93 Pulse Rate [3] 88 Pulse Rate [4] 80 Pulse Rate [5] 83 Respiratory Rate 16 14 Respiratory Rate [1 (Initial Baseline)] 13 Respiratory Rate [2] 10 L Respiratory Rate [3] 12 Respiratory Rate [4] 13 Respiratory Rate [5] 20 H Blood Pressure 123/55 H 119/63 Blood Pressure [1 (Initial Baseline)] 117/76 Blood Pressure [2] 102/47 L Blood Pressure [5] 99/56 L Blood Pressure Mean 77 Pulse Ox 100 100 Oxygen Delivery Method Room Air Room Air Oxygen Delivery Method [1 (Initial Baseline)] Nasal Cannula Oxygen Delivery Method [2] Nasal Cannula Oxygen Delivery Method [3] Nasal Cannula Oxygen Delivery Method [4] Non-Rebreather Oxygen Delivery Method [5] Nasal Cannula Oxygen Flow Rate (L/min) Oxygen Flow Rate (L/min) [1 (Initial Baseline)] 2 Oxygen Flow Rate (L/min) [2] 2 Oxygen Flow Rate (L/min) [3] 2 Oxygen Flow Rate (L/min) [4] 15 Oxygen Flow Rate (L/min) [5] 99 05/18/23 19:30 Temperature Temperature Source Pulse Rate Pulse Rate [1 (Initial Baseline)] Pulse Rate [2] Pulse Rate [3] Pulse Rate [4] Pulse Rate [5] Respiratory Rate Respiratory Rate [1 (Initial Baseline)] Respiratory Rate [2] Respiratory Rate [3] Respiratory Rate [4] Respiratory Rate [5] Blood Pressure Blood Pressure [1 (Initial Baseline)] Blood Pressure [2] Blood Pressure [5] Blood Pressure Mean Pulse Ox Oxygen Delivery Method Nasal Cannula Oxygen Delivery Method [1 (Initial Baseline)] Oxygen Delivery Method [2] Oxygen Delivery Method [3] Oxygen Delivery Method [4] Oxygen Delivery Method [5] Oxygen Flow Rate (L/min) 2 Oxygen Flow Rate (L/min) [1 (Initial Baseline)] Oxygen Flow Rate (L/min) [2] Oxygen Flow Rate (L/min) [3] Oxygen Flow Rate (L/min) [4] Oxygen Flow Rate (L/min) [5] Positive well nourished and well developed Constitutional Narrative: Patient appears uncomfortable. General Appearance ED: well developed HEENT Reports moist mucous membranes normocephalic and atraumatic Eyes PERRL Eyes Narrative: Extraocular muscles are intact. Sclera is anicteric. Neck full ROM and supple Chest Wall inspection of chest normal Resp normal respiratory effort, no retractions and clear to auscultation bilaterally Cardio regular rate, regular rhythm, S1 normal heart sound, S2 normal heart sound and no murmurs Extremity Negative for normal to inspection Extremity Narrative: There is significant swelling approximately 6 to 10 cm above the lateral and medial malleolus. DP pulse is palpable. There is no pain the patient of the toes or foot. There is no pain the patient over the patella or joint line of the right knee. Neuro oriented x3, CN's II-XII intact bilaterally, moves all extremities and no sensory deficits noted Sensorium / Orientation: alert Psych mental status grossly normal Skin Lesions: no lesions Rashes: no rashes MDM MDM MDM Narrative Medical decision making narrative: X-ray of the right tib-fib was ordered. Suspect patient has a fracture. Patient was medicated with 2 mg of morphine. She requested Dr. Shadi dinh who is on-call for orthopedic surgeon. She apparently works for [employer]. Radiography Chest X-Ray - ED: 2 View and Read by ED Physician (Patient has a spiral is displaced fracture distal right tibia and a fracture distal right fibula. This was independent reviewed interpreted by me at 1853.) Diagnostic Testing: Clinical Impression(s) from Imaging Studies Tibia/Fibula X-Ray 05/18/23 18:41 IMPRESSION: Tibial fracture as above, recommend orthopedic consult. Electronically Signed: Martinez Garcia DO at 19:06 EST Reading Location ID and State: [address] [place] [address] , Service support , Treatment and Re-Evaluation Narrative: Patient was informed of fracture. Plan is sedation to apply posterior and sugar-tong/stirrup splint for immobilization. Case was discussed with Dr. Shadi dinh. He agrees with plan. Patient to follow-up as an outpatient for ORIF. Procedures Lower Extremity Splints Lower Extremity Splint: Plaster, Stirrup and - (Posterior short leg) Splint Fabrication: Fabricated Location: Right Procedural Sedation 1 (Initial Baseline): Consent Signed: Yes Any Problems With Anesthesia: No You/Your family experience fever (hyperthermia) w/anesthesia: No Sedation medication: Propofol Dose: 160 Route: IV Total Moderate Sedation Units: 12 Maliampati Score: Class I ASA Classification: I Comment:: Patient became unresponsive after third 40 mg aliquot was administered. Her O2 sat began to fall. She fell as low as 88%. She was placed on increased oxygen. With stimulation she began to breathe and pulse ox improved. Posterior short leg splint was initially applied followed by sugar-tong/stirrup splint. These were fabricated by . Plaster was used. Discharge Plan Triage Chief Complaint: Lower Extremity Injury ED Provider: Jhonatan Gil Dx/Rx/DC Orders Clinical Impression: Traumatic closed fracture of distal tibia with fibula with minimal displacement Instructions: ED Leg Fracture Prescriptions: New hydrocodone-acetaminophen [hydrocodone-acetaminophen] 5-325 mg tablet 1 tab PO Q6H PRN PRN (Reason: Pain) 5 Days Qty: 20 0RF No Action Nextstellis 3 mg- 14.2 mg (28) tablet See Rx Instructions PO .COMPLEX Qty: 28 12RF Rx Instructions: take 1-PINK tablet once daily for 24 days/days 1-24 of cycle; take 1-WHITE tablet once daily for 4 days/days 25-28 of cycle. PO Primary Care Provider: Scarlett Vizcaino NP Referrals: Quinn Washington, [Med Staff - Active Staff] - As soon as possible Scarlett Vizcaino NP, SPRING SETTER-C [Primary Care Provider] - Activity Restrictions/Additional Instructions: 1. Elevate your right leg. My definition of elevation is your toes above your nose. 2. Apply ice 20 minutes at a time every hour while awake 3. Must keep splint absolutely clean and dry 4. Take pain medicine as needed for pain. Recommend jobsmg-ejw-szjiq for the first 24 to 48 hours. Disposition Disposition: Home, Self Care What to do if you have Problems For any increased pain, shortness of breath, bleeding, nausea or vomiting, chestpain, or any unexpected problems, contact your Primary Care Provider. Call [facility] ([phone]) or report to the closest Emergency Room. Call 911 if necessary. 05/18/231937 <Electronically signed by Jhonatan Gil MD> Cosigner Signature (if applicable): CC: SPRING SETTER-C Scarlett Vizcaino ~ Signed [facility] Work Phone: 1(679) 438-333707-18-2022 NotePap Smear Specimen AdequacyJuly 2021 11:01amComment.Satisfactory for evaluation. Endocervical and/or squamous metaplasticcells (endocervical component)are present.[id number] Work Phone: Comment on above:Satisfactory for evaluation. Endocervical and/or squamous metaplasticcells (endocervical component)are present.Discharge summary Author Jessee Ferraro [facility] August 02, 2023 12:51pm Note Date/Time August 02, 2023 12:5 1pm [facility] Medical Records Department [address] [place] [address] Discharge Summary 08/02/23 1249 MR#: [id number] Acct: [id number] Name: DARON DIAL Rep #:[id number] : 1990 33 From: Jessee martin MD PCP: JAZMÍN Moreau Status:ADM I N Location: [place] [address] Providers Date of Admission: 07/31/23 Primary Care Physician: JAZMÍN Moreau Reason For Visit: SMALL BOWEL OBSTRUCTION Diagnosis Discharge Diagnosis (1) Small bowel obstruction: Status: Acute Code(s): K56.609 - Unspecified intestinal obstruction, unspecified as to partial versus complete obstruction Plan: Patient small bowel obstruction seems to have resolved. Patient is tolerating clears and passing gas. She has no abdominal pain. NG was removed yesterday. I will advance her to regular diet today and as long as she tolerates that I will discharge her home. Jessee Ferraro MD Pager: [facility] [address] [place] [address], [address] [place] [address] Office: Medications at Discharge Home Medications drospirenone 3 mg-estetrol 14.2 mg (28) tablet (Nextstellis) See Rx InstructionsPO .COMPLEX control #28 tabs 05/07/23 Hospital Course Operations None Procedures None Summary of Care Provided Hospital Course: The patient was admitted after CT scan showed small bowel obstruction. Following day she had attempted small bowel follow-through but she was unable totolerate and got nauseous and vomited. The NG was placed back to suction. The following day she was actually having bowel movements and passing gas and her abdomen was nontender and she was noted try small bowel follow-through again. We tried another small bowel follow-through the following day and it went through without any interruption. That afternoon the NG was removed and she wasstarted on clears. She tolerated clears well with no abdominal pain or nausea or vomiting. She was advanced to a normal diet the following morning and after tolerating that she was discharged home. Weight / BMI Weight Weight: 118 lb 6.4 oz Body Mass Index (BMI) 20.9 ABG / Lab / Microbiology Data 07/31/23 05:29 07/31/23 05:29 D/C Instructions Discharge Diet: Light diet - advance as tolerated Discharge Activity: Return to Normal Activity May resume sexual activity in: No Restrictions Weight Bearing Status: Weight bearing as tolerated Call your doctor if your incision/area has: Increased Pain/ Swelling Call your doctor if you observe: Inability to have a bowel movement Please Follow Up With: Jessee Ferraro MD When: Follow up as needed. [phone] Meaningful Use Info Meaningful Use Diagnoses (Choose all that apply): None applicable Discharge Plan Admission Admit Date/Time: 07/31/23 02:24 Attending Provider: Jessee Ferraro Primary Care Provider: Scarlett Vizcaino NP Discharge Orders/Prescriptions Prescriptions: Continued Nextstellis 3 mg- 14.2 mg (28) tablet See Rx Instructions PO .COMPLEX Qty: 28 12RF Rx Instructions: take 1-PINK tablet once daily for 24 days/days 1-24 of cycle; take 1-WHITE tablet once daily for 4 days/days 25-28 of cycle. PO Referrals / Follow Up: Scarlett Vizcaino NP, SPRING SETTER-C [Primary Care Provider] - Disposition Disposition (needs filled in before D/C Order can be placed): Home, Self Care 08/02/23 1251 <Electronically signed by Jessee Ferraro MD> Cosigner Signature (if applicable): CC: SPRING SETTER-C Scarlett Vizcaino; Dr. Jessee Ferraro MD~ Signed [facility] Work Phone: Evaluation note* Diagnosis Onset Date Resolution Status Pneumonia acute Abnormal uterine bleeding (AUB) acute Encounter for routine gynecological examination noneactive Recurrent vaginitis noneacti ve [facility] Work Phone: Evaluation note* Diagnosis Onset Date Resolution Status Abnormal uterine bleeding (AUB) acute Encounter for routine gynecological examination noneactive Pharyngitis acute Abnormal uterine bleeding (AUB) acute [facility] Work Phone: Evaluation note* Diagnosis Onset Date Resolution Status Pharyngitis acute Abnormal uterine bleeding (AUB) acute [facility] Work Phone: Evaluation note* Diagnosis Onset Date Resolution Status Abnormal uterine bleeding (AUB) acute Small bowel obstruction acut e [facility] Work Phone: Evaluation note* Diagnosis Onset Date Resolution Status Abnormal uterine bleeding (AUB) acute Small bowel obstruction reso lved [facility] Work Phone: Evaluation noteNo assessment information available [facility] Work Phone: Evaluation note* Diagnosis Streptococcus exposure- Primary Contact with or exposure to other communicable diseases Viral pharyngitis Acute pharyngitis documented in this encounter History and physical note Author Jessee Ferraro [facility] July 31, 2023 2:24am Note Date/Time July 31, 2023 2:24 am [facility] Medical Records Department [address] [place] [address] H&P Exam - Surgical 07/31/23 0222 MR#: [id number] Acct: [id number] Name: DARON DIAL Rep #:[id number] : 1990 33 From: Jessee martin MD PCP: Scarlett Vizcaino, NATALIYA-C Status:REG E R Location: ED HPI - General HPI Narrative DARON DIAL, is a 33 F who presents with abdominal pain and nausea. Patient reports this started today. She says she has never had a bowel obstruction before. She denies vomiting but she does have nausea. She says she has epigastric pain and heartburn. She did have a bowel movement since being in theER. She denies fevers or chills. [facility] Medical History Gestational diabetes mellitus (GDM) Hx of thyroiditis Infertility Home Medications drospirenone 3 mg-estetrol 14.2 mg (28) tablet (Nextstellis) See Rx InstructionsPO .COMPLEX #28 tabs 05/07/23 [Rx Last Taken Unknown] hydrocodone-acetaminophen 5-325mg 5mg-325mg 1 tab PO Q6H PRN PRN Pain 5 days #20TABLETS 05/18/23 [Rx Last Taken Unknown] Allergy/AdvReac Type Severity Reaction Status Date / Time Sulfa (Sulfonamide Allergy Mild blisters Verified 07/30/23 21:12 Antibiotics) Family History Grandfather Hypertension Surgical History History of bilateral salpingectomy History of mandibular surgery Social History Smoking Status: Never smoker alcohol intake: never substance use type: does not use caffeine: Yes what type of physical activity do you participate in: none seatbelt use: always do you feel safe at home: Yes additional social history: Gclekpy-Vcuf-Sxum/Sold 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 Constitutional Constitutional: Denies anorexia, chills or fatigue Eyes Eyes: Denies blurry vision ENT HEENT: Denies abnormal hearing Cardiovascular Cardiovascular: Denies chest pain Respiratory/Chest Respiratory/Chest: Denies cough or dyspnea Gastrointestinal Gastrointestinal: Reports abdominal pain and nausea; Denies coffee ground emesisor vomiting Genitourinary Genitourinary: Denies change in urinary stream Musculoskeletal Musculoskeletal: Denies abnormal gait Integumentary Integumentary: Denies jaundice Neurologic Neurologic: Denies dizziness Psychiatric Psychiatric: Reports anxiety Endocrine Endocrinology: Denies heat intolerance Hematologic/Lymphatic Hematologic/Lymphatic: Denies easy bleeding Vital Signs Vital Signs Vital Signs: 07/30/23 21:12 07/31/23 01:43 Temperature 98.5 F Temperature Source Temporal Pulse Rate 76 100 Respiratory Rate 18 18 Blood Pressure 112/70 121/80 H Blood Pressure Mean 84 93 Pulse Ox 100 100 Oxygen Delivery Method Room Air Room Air Weight Weight: 118 lb 6.4 oz Body Mass Index (BMI) 20.9 Physical Exam Const oriented x3 and no apparent distress Resp normal respiratory effort Cardio regular rate and regular rhythm GI soft to palpation and non-tender Inspection: abdominal distention Extremity normal to inspection Results Lab / Micro Data 07/30/23 22:10 07/30/23 22:10 Labs: Laboratory Results - last 24 hr 07/30/23 22:10: WBC 12.8 H, RBC 4.50, Hgb 13.0, Hct 40.1, MCV 89.1, MCH 28.9, MCHC 32.4, RDW Std Deviation 40.9, RDW Coeff of Rosa 12.5, Plt Count 333, MPV 8.7, Immature Gran % (Auto) 0.400, Neut % (Auto) 80.1 H, Lymph % (Auto) 14.7 L, Webb % (Auto) 4.1, Eos % (Auto) 0.4, Baso % (Auto) 0.3, Absolute Neuts (auto) 10.3 H, Absolute Lymphs (auto) 1.88, Nucleated RBC % 0, Sodium 140, Potassium 3.8, Chloride 110 H, Carbon Dioxide 27.0, Anion Gap 3 L, BUN 18, Creatinine 0.78, Estim Creat Clear Calc 83.27, Est GFR (MDRD) Af Amer 107, Est GFR (MDRD) Non-Af 89, BUN/Creatinine Ratio 23.0 H, Glucose 115 H, Calcium 9.6, Total Bilirubin 0.70, AST 10 L, ALT 16, Alkaline Phosphatase 80, Total Protein 7.2, Albumin 3.8, Globulin 3.4, Albumin/Globulin Ratio 1.1, Lipase 24, HCG, Quant 2 07/30/23 23:00: Urine Color Yellow, Urine Clarity Sl. Cloudy, Urine pH 9.0, Ur Specific [place] 1.015, Urine Protein 15 H, Urine Glucose (UA) Normal, Urine Ketones Negative, Urine Occult Blood 250 H, Urine Nitrite Negative, Urine Bilirubin Negative, Urine Urobilinogen Normal, Ur Leukocyte Esterase 25 H, UrineRBC 5-10 SEEN, Urine WBC 0 SEEN, Ur Squamous Epith Cells 0-5 SEEN, Amorphous Sediment 1+, Urine Bacteria RARE, Urine Mucus 0 SEEN Imaging Radiology Impression Abdomen/Pelvis CT 07/30/23 23:41 IMPRESSION: 1. High-grade mid small bowel obstruction. Etiology unclear, primary considerations include adhesions, internal hernia, and stricture or acute focal inflammation. No visible mass. Multiple collapsed mid-distal small bowel loops appear mildly thick-walled. Zone of transition is estimated to be in the lower abdomen. 2. There is abrupt narrowing of the third part of the duodenum between the SMA and aorta suggesting some degree of SMA syndrome but the pertinent acute obstruction appears to be more distal involving mid small bowel. 3. No free air, free fluid, or suspicious vascular findings. Tabletlike structure or stone in the cecum appears incidentally noted. Electronically Signed: Jennifer Humphreys MD at 0:56 EST , ADDENDUM: 07/31/23 0106 IMPRESSION: 1. High-grade mid small bowel obstruction. Etiology unclear, primary considerations include adhesions, internal hernia, and stricture or acute focal inflammation. No visible mass. Multiple collapsed mid-distal small bowel loops appear mildly thick-walled. Zone of transition is estimated to be in the lower abdomen. 2. There is abrupt narrowing of the third part of the duodenum between the SMA and aorta suggesting some degree of SMA syndrome but the pertinent acute obstruction appears to be more distal involving mid small bowel. 3. No free air, free fluid, or suspicious vascular findings. Tabletlike structure or stone in the cecum appears incidentally noted. N.B. : The above Results were Read Back by Jennifer Humphreys MD to Rebeca Kumari RN, and understanding confirmed on 07/31/2023 00:59:46 (ET). Electronically Signed: Jennifer Humphreys MD at 0:56 EST , Assessment & Plan Assessment/Plan (1) Small bowel obstruction: PLAN: The patient was having nausea and epigastric pain and had a CT scan which showed high-grade small bowel obstruction. The patient has had a in the past and this may be from adhesions. They did not see any swirling of the mesentery. Currently she is comfortable after morphine and not having any abdominal pain. She is still having nausea. After reviewing the CT scan it appears there is copious amount of fluid in her stomach I will recommend NG decompression. I will admit her and start her on IV fluids and order a KUB for the morning but I informed her that we likely will be performing surgery tomorrow as she has a high-grade obstruction. I explained that NG decompressionwould assist in being able to perform the surgery laparoscopically. Patient understands and is willing to proceed. Jessee Ferraro MD Pager: [facility] [address] [place] [address] [address] [place] [address] Office: 07/31/23223 <Electronically signed by Jessee Ferraro MD> Cosigner Signature (if applicable): CC: SPRING SETTERRyne Vizcaino; Dr. Jessee Ferraro MD~ Signed [facility] Work Phone: Hospital Discharge instructions Additional Instructions 1. Elevate your right leg. My definition of elevation is your toes above your nose. 2. Apply ice 20 minutes at a time every hour while awake 3. Must keep splint absolutely clean and dry 4. Take pain medicine as needed for pain. Recommend [id number] for the first 24 to 48 hours.[facility] Work Phone: Reason for referral (narrative)No reason for referral information availableWooFulton County Health Center Work Phone: Summary Purpose Family History Relationship Condition Age at Onset Recorded Date/T humble grandfather Hypertension Unknown Relationship Condition Age at Onset Recorded Date/T humble Not Specified Abnormal uterine bleeding Unknown grandfather Hypertension Unknown Advance Directives Advance Directive Response Recorded Date/ Time Living Will No July 06 4:02am Power of Top Bottom Attaching Machine Operator No July 06, 2020 4:02am Advance Directive Response Recorded Date/ Time Living Will No May 18, 2 023 6:54pm Power of Top Bottom Attaching Machine Operator No May 18, 2023 6:54pm Advance Directive Response Recorded Date/ Time Living Will No July 31, 2023 3:23am Power of Top Bottom Attaching Machine Operator No July 30 3:23am Advance Directive Response Recorded Date/ Time Living Will No August 08, 2023 5:30pm Power of Top Bottom Attaching Machine Operator No August 07 5:30pm Advance Directive Response Recorded Date/ Time Living Will No July 06 3:02am Power of Top Bottom Attaching Machine Operator No July 06, 2020 3:02am Chief Complaint and Reason for Visit Chief Complaint FATIGUE/FEVER/BODY A CHES/CHILLS 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 Visit Pneumonia Abnormal uterine bleeding (AUB) Encounter for routine gynecological examination Recurrent vaginitis Chief Complaint 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) ABN UTERINE BLEEDING SORE THROAT surg consult possible D&C r/s from 05/14 fall Reason for Visit Abnormal uterine ble eding (AUB) Encounter for routine gynecological examination Pharyngitis Abnormal uterine bleeding (AUB) Chief Complaint ABN UTERINE BLEEDING SORE THROAT surg consult possible D&C r/s from 05/14 fall RIGHT ANKLE DISPLACEMENT Reason for Visit Pharyngitis Abnormal uterine bleeding (AUB) Chief Complaint surg consult possibl e D&C r/s from 05/14 fall RIGHT ANKLE DISPLACEMENT SMALL BOWEL OBSTRUCTION SBO Reason for Visit Abnormal uterine ble eding (AUB) Small bowel obstruction Chief Complaint surg consult possibl e D&C r/s from 05/14 fall RIGHT ANKLE DISPLACEMENT SMALL BOWEL OBSTRUCTION SBO SMALL BOWEL OBSTRUCTION SMALL BOWEL OBSTRUCTION Reason for Visit Abnormal uterine ble eding (AUB) Small bowel obstruction Chief Complaint surg consult possibl e D&C r/s from 05/14 fall RIGHT ANKLE DISPLACEMENT SMALL BOWEL OBSTRUCTION SBO PREOP SMALL BOWEL OBSTRUCTION SMALL BOWEL OBSTRUCTION abd pain Reason for Visit Abnormal uterine ble eding (AUB) Small bowel obstruction Chief Complaint 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) ABN UTERINE BLEEDING SORE THROAT surg consult possible D&C r/s from 05/14 Reason for Visit Abnormal uterine ble eding (AUB) Encounter for routine gynecological examination Pharyngitis Abnormal uterine bleeding (AUB) Chief Complaint Admit Date FASTING LABS August 24, 2024 7:5 1am Chief Complaint Admit Date FASTING LABS August 24, 2024 7:5 1am SKIN September 08, 2024 7:1 1am Chief Complaint Admit Date FASTING LABS August 24, 2024 7:5 1am SKIN September 08, 2024 7:1 1am SKIN October 13, 2024 2:00p m Additional Source Comments INFORMATION SOURCE (unrecogn ized section and content) DATE CREATED AUTHOR 10/06/2018 [facility] ([place]) DATE CREATED AUTHOR AUTHOR'S ORGANIZ ATION 06/01/2020 [facility] DATE CREATED AUTHOR AUTHOR'S ORGANIZ ATION 11/06/2023 [facility] DATE CREATED AUTHOR AUTHOR'S ORGANIZ ATION 10/19/2024 [facility] DATE CREATED AUTHOR AUTHOR'S ORGANIZ ATION 11/05/2024 [facility] Goals (unrecognized section and content) Goals may be documented in a n alternate sectionGoals may be documented in an alternate sectionGoals may be documented in an alternate sectionGoals may be documented in an alternate sectionGoals may be documented in an alternate sectionGoals may be documented in an alternate sectionGoals may be documented in an alternate sectionGoals may be documented in an alternate section Care Teams (unrecognized sec tion and content) Team Status: Active Member Role Status Dates Dr. Jodie Holt MD Family Provider Active Scarlett Vizcaino SPRING SETTER, SPRING SETTER-C Primary Care Provider Active Team Status: Inactive Member Role Status Dates Scarlett Vizcaino SPRING SETTER, SPRING SETTER-C Primary Care Provider, Referri ng Provider Active Sarah Barreto SPRING SETTER, SPRING SETTER-C Attending Provider Active Team Status: Inactive Member Role Status Dates Scarlett Vizcaino SPRING SETTER, SPRING SETTER-C Primary Care Provider, Referri ng Provider Active Huseyin Trujillo SPRING SETTER, SPRING SETTER-C Attending Provider Active Team Status: Inactive Member Role Status Dates Scarlett Vizcaino SPRING SETTER, SPRING SETTER-C Primary Care Provider, Referri ng Provider Active Dr. Lina Oneil MD Attending Provider Active Team Status: Inactive Member Role Status Dates Scarlett Vizcaino SPRING SETTER, SPRING SETTER-C Primary Care Provider Active Sarah Barreto SPRING SETTER, SPRING SETTER-C Attending Provider, Referring Provider Active Team Status: Inactive Member Role Status Dates Scarlett Vizcaino SPRING SETTER, SPRING SETTER-C Primary Care Provider Active Dr. Lina Oneil MD Attending Provider, Referr ing Provider Active Team Status: Inactive Member Role Status Dates Scarlett Vizcaino SPRING SETTER, SPRING SETTER-C Primary Care Provider Active Dr. Jhonatna Gil MD Emergency Provider Active Team Status: Inactive Member Role Status Dates Scarlett Vizcaino SPRING SETTER, SPRING SETTER-C Primary Care Provider Active Dr. Kendall Cohen DO Attending Provider, Referrin g Provider Active Team Status: Inactive Member Role Status Dates Scarlett Vizcaino SPRING SETTER, SPRING SETTER-C Primary Care Provider Active Dr. Jhonatan Gil MD Attending Provider, Emergency Provi sanjuanita Active Team Status: Active Member Role Status Dates Scarlett Vizcaino NP, SPRING SETTER-C Primary Care Provider Active Dr. Vicente Cabrera DO Emergency Provider Active Dr. Jessee Ferraro MD Admit Provid er, Attending Provider, Referring Provider, Other Provider Active Team Status: Active Member Role Status Dates Scarlett Vizcaino NP, SPRING SETTER-C Primary Care Provider Active Dr. Vicente Cabrera DO Emergency Provider Active Dr. Jessee Ferraro MD Admit Provid er, Attending Provider, Referring Provider Active Team Status: Inactive Member Role Status Dates Scarlett Vizcaino SPRING SETTER, SPRING SETTER-C Primary Care Provider Active Dr. Vicente Cabrera DO Emergency Provider Active Dr. Jessee Ferraro MD Admit Provid er, Attending Provider, Referring Provider Active Team Status: Active Member Role Status Dates Scarlett Vizcaino SPRING SETTER, SPRING SETTER-C Primary Care Provider Active Dr. Quinn Bowie MD Attending Provider Active Dr. Jessee Ferraro MD Referring Provider Active Team Status: Inactive Member Role Status Dates Scarlett Vizcaino SPRING SETTER, SPRING SETTER-C Primary Care Provider Active Dr. Candido Jasso DO Emergency Provider Active Team Status: Inactive Member Role Status Dates Scarlett Vizcaino SPRING SETTER, SPRING SETTER-C Primary Care Provider Active Start: August 24, 2024 End: August 24, 2024 Dr. Ronnie Morton MD Attending Provider Active Start: August 24, 2024 End: August 24, 2024 Dr. Ronnie Morton MD Referring Provider Active Start: August 24, 2024 End: August 24, 2024 Team Status: Inactive Member Role Status Dates VIVEK MASON Attending Provider Active Start: September 08, 2024 End: September 08, 2024 VIVEK MASON Referring Provider Active Start: September 08, 2024 End: September 08, 2024 Scarlett Vizcaino NP, SPRING SETTER-C Primary Care Provider Active Start: September 08, 2024 End: September 08, 2024 Team Status: Inactive Member Role Status Dates Scarlett Vizcaino SPRING SETTER, SPRING SETTER-C Primary Care Provider Active Start: October 13, 2024 End: October 13, 2024 Dr. Catie Zambrano MD Attending Provider Active S tart: October 13, 2024 End: October 13, 2024 Dr. Catie Zambrano MD Referring Provider Active S tart: October 13, 2024 End: October 13, 2024 Helpdesk Specialist Relationship Specialty Start Date End Date Huseyin Stover [address] [place] [address] [place] [id number] PCP - General Family Medicine 11/05/24 Source Comments (unrecognize d section and content) In the event this informatio n is protected by the Federal Confidentiality of Alcohol and Drug Abuse Patient Records regulations: The Federal rules restrict any use of the information to criminally investigate or prosecute any alcohol or drug abuse patient. Reason for Visit (unrecogniz ed section and content) Reason Comments Cough Congestion, ST, hoar se voice x4 days FOR RECORDS PERTAINING TO PATIENTS WHO ARE [...] BE BASED ON THE PRIMARY CLINICAL RECORDS. [employer] [facility]. provides no warranty or guarantee of the accuracy or completeness of information in this document.
[2024-12-24 00:49] LABS: Hematocrit 39.7 % (37-47); Hemoglobin 13.2 g/dL (12.0-15.0); Immature Granulocytes Count 0.050 X10^3/uL (0.0-0.0); Mean Corp Hgb Conc 33.2 g/dL (32-36); Mean Corpuscular Volume 89.4 fL (81-99); Mean Platelet Vol. 9.1 fl (6.2-12.0); NRBC Flagged by Analyzer 0 % (0-5); Platelet Count 271 K/mm3 (150-450); RBC Distribution Width CV 13.6 % (11.6-14.6); RBC Distribution Width SD 44.3 fl (35.1-43.9); Red Blood Count 4.44 M/mm3 (4.2-5.4); White Blood Count 16.5 K/mm3 (4.4-11.0)
[2024-12-24 01:09] VITALS: BP 116/79; PULSE 81; RESP 16; O2SAT 99
[2024-12-24 01:12] LABS: Anion Gap 11 (5-15); BUN 16 mg/dL (4-19); BUN/Creat Ratio 22.6 RATIO (10-20); Calcium,Total 9.2 mg/dL (7.6-11.0); Carbon Dioxide 22.5 mmol/L (21.0-32.0); Chloride 104 mmol/L (98-108); Estimated Creatinine Clearance 91.91 ml/min (50-250); Glucose 132 mg/dL (70-99); Potassium 3.4 mmol/L (3.3-5.1)
[2024-12-24 02:09] VITALS: BP 109/74; PULSE 86; RESP 16; O2SAT 99
[2024-12-24 03:09] VITALS: BP 113/64; PULSE 81; RESP 16; O2SAT 99
[2024-12-24 03:22] LABS: Mucous, Urine 0 SEEN /hpf (<or=2+); Red Blood Cells-Urine 0 SEEN /hpf (0-5)
[2024-12-24 03:24] LABS: Color, Urine Straw (Yellow); Glucose, Dipstick Normal (Normal); Ketone-Dipstick 50 mg/dl (Negative); Leukocyte Esterase-Dipstick Negative /ul (Negative); Nitrite-Dipstick Negative (Negative); Occult Blood-Urine Negative /ul (Negative); Protein-Dipstick 15 mg/dl (Negative); Specific Gravity, Urine 1.010 (1.002-1.030); Urine Bilirubin Dipstick Negative (Negative)
[2024-12-24 03:35] LABS: Squamous Epithelial Cells - UA 5-10 SEEN /hpf (5-10)
--- NOTE | 2024-12-24 03:52 | EX.ED.DYSGE1 ---
HPI History of Present Illness Chief Complaint: Palpitations Informant: patient Narrative Narrative: Presents to ED for evaluation of palpitations since 9 PM. No lightheaded symptoms. She states did first [employer] competition today had 4 different fitness events. She did drink extra protein drinks which did have caffeine in it last drink around 7 PM. Denies chest pains. No cough. No recent travel or surgeries. No history of PE or DVT. She is concerned of electrolyte abnormalities. She reports urine frequency.She reports she does have a smart watch her heart rate has been normal it does not have the EKG function. Prior similar symptoms: No PFSH PFSH Medical History Right ankle instability Tibial fracture Small bowel obstruction Gestational diabetes mellitus (GDM) Hx of thyroiditis Infertility Home Medications ?Medication ?Instructions ?Recorded ?Last Taken ?Type omeprazole 20 mg capsule,delayed 20 mg PO DAILY 12/24/24 12/24/24 History release spironolactone 100 mg tablet 100 mg PO QHS 12/24/24 12/24/24 History Allergy/AdvReac Type Severity Reaction Status Date / Time Sulfa (Sulfonamide Allergy Mild blisters Verified 12/24/24 00:10 Antibiotics) Family History Grandfather Hypertension Other Abnormal uterine bleeding (AUB) Surgical History delivery delivered History of bilateral salpingectomy History of mandibular surgery Social History Smoking Status: Never smoker alcohol intake: never substance use type: does not use caffeine: Yes what type of physical activity do you participate in: none seatbelt use: always do you feel safe at home: Yes additional social history: Plyejvf-Jgsp-Emic/[employer] 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 WYATT ED Constitutional Constitutional ED: Denies chills, fever(s) or sweats ENT ENT ED: Denies sore throat Cardiovascular Cardiovascular: Reports palpitations; Denies chest pain, leg edema or racing heartbeat Respiratory/Chest Respiratory/Chest: Denies cough, dyspnea or dyspnea on exertion Gastrointestinal Gastrointestinal: Denies abdominal pain, diarrhea, nausea or vomiting Genitourinary Genitourinary ED: Denies dysuria, hematuria or urinary frequency Musculoskeletal Musculoskeletal: Denies back pain, extremity pain or neck pain Integumentary Denies rash or wounds Neurologic Neurologic: Denies headache(s), paresthesias or weakness EXAM Physical Exam Const Vital Signs: 12/24/24 00:10 12/24/24 00:14 12/24/24 01:09 Temperature 98.4 F Temperature Source Oral Pulse Rate 88 81 Respiratory Rate 18 16 Respiratory Effort Normal Non-Labored Blood Pressure 116/83 H 116/79 Blood Pressure Mean 94 91 Pulse Ox 100 99 Oxygen Delivery Method Room Air 12/24/24 02:09 12/24/24 03:09 12/24/24 04:00 Temperature 97.8 F Temperature Source Pulse Rate 86 81 86 Respiratory Rate 16 16 16 Respiratory Effort Blood Pressure 109/74 113/64 114/75 Blood Pressure Mean 85 80 88 Pulse Ox 99 99 99 Oxygen Delivery Method Positive well nourished and well developed General Appearance ED: well developed and NAD HEENT Reports moist mucous membranes normocephalic and atraumatic Eyes General Eye ED: Yes normal appearance of both eyes Neck full ROM Chest Wall Chest: Negative for tenderness Resp normal respiratory effort and normal air movement Effort and Inspection: symmetric chest movement; Negative for respiratory distress Cardio regular rate, regular rhythm and no murmurs Peripheral Pulses: pulses 2+ throughout GI normal to inspection, nondistended, normoactive bowel sounds and non-tender Palpation: Negative for guarding or rebound tenderness present Extremity normal to inspection General Extremety ED: Negative for edema or tenderness General Extremity: Negative for edema Neuro oriented x3 and no sensory deficits noted Sensorium / Orientation: awake and alert Skin no rashes or lesions noted and no wounds MDM MDM MDM Narrative Medical decision making narrative: Interventions / MDM: Differential diagnosis: Palpitations Diagnosis considered but do not suspect: Electrolyte abnormalities however labs are normal. UTI however urine negative for infection. My EKG interpretation: Sinus arrhythmia rate of 71, no ST or T wave changes QTc 473. Imaging independently reviewed and interpreted by myself: N/A External documents reviewed: N/A Test considered but not ordered:N/A ED course: Palpitations with normal EKG. She had mild symptoms on my exam and sinus rhythm on the monitor. Urine frequency concerns for electrolyte abnormalities. Laboratory studies obtained including urine. Electrolytes were normal no leukocytosis urine negative for infection. No cough. Likely reactive with her activities today. On reevaluation symptoms improving. Discussed withholding from caffeine at this time monitoring symptoms reoccurs may need Holter monitor as an outpatient. All questions were answered. Re-evaluation: stable Disposition discussed with patient/family/significant other: Patient Case discussed with consulting clinician: N/A This note was generated with [employer] dictation software. It may contain incorrect words, spelling, and punctuation that were not noted in checking the note before signing. Lab Data Attestation: I reviewed the patient's lab results. Labs: Laboratory Results - last 24 hr 12/24/24 12/24/24 00:30 03:15 WBC 16.5 H RBC 4.44 Hgb 13.2 Hct 39.7 MCV 89.4 MCH 29.7 MCHC 33.2 RDW Std Deviation 44.3 H RDW Coeff of Rosa 13.6 Plt Count 271 MPV 9.1 Immature Gran % (Auto) 0.300 Neut % (Auto) 82.4 H Lymph % (Auto) 13.3 L [place] % (Auto) 3.8 Eos % (Auto) 0.0 Baso % (Auto) 0.2 Absolute Neuts (auto) 13.6 H Absolute Lymphs (auto) 2.19 Nucleated RBC % 0 Sodium 137 Potassium 3.4 Chloride 104 Carbon Dioxide 22.5 Anion Gap 11 BUN 16 Creatinine 0.70 Estim Creat Clear Calc 91.91 Est GFR (MDRD) Non-Af 115 BUN/Creatinine Ratio 22.6 H Glucose 132 H Calcium 9.2 Urine Color Straw Urine Clarity Clear Urine pH 7.0 Ur Specific [place] 1.010 Urine Protein 15 H Urine Glucose (UA) Normal Urine Ketones 50 H Urine Occult Blood Negative Urine Nitrite Negative Urine Bilirubin Negative Urine Urobilinogen Normal Ur Leukocyte Esterase Negative Urine RBC 0 SEEN Urine WBC 0 SEEN Ur Squamous Epith Cells 5-10 SEEN Urine Bacteria 1+ Urine Mucus 0 SEEN Discharge Plan Triage Chief Complaint: Palpitations ED Provider: Blayne Livingston Dx/Rx/DC Orders Clinical Impression: Palpitations Instructions: ED Palpitations Prescriptions: No Action spironolactone 100 mg tablet 100 mg PO QHS omeprazole 20 mg capsule,delayed release(DR/EC) 20 mg PO DAILY Primary Care Provider: Fernie Stover Referrals: Fernie Stover MD [Primary Care Provider] - 1 Week Activity Restrictions/Additional Instructions: EKG normal. Labs are normal electrolytes. Avoid caffeine. Follow-up with your PCP for reevaluation and possible Holter monitor. Print Language: Hungarian Disposition Disposition: Home, Self Care Discharge Date/Time: 12/24/24 04:00
[2024-12-24 04:00] VITALS: BP 114/75; PULSE 86; RESP 16; TEMP 36.6; O2SAT 99
== END 2024-12-24 04:00 | disposition home or self-care (01) ==
PROVIDERS: Emergency Provider Emergency Medicine; PCP Family Medicine; Visit Provider Emergency Medicine
DX: R00.2 Palpitations (principal)
CPT/HCPCS: 80048; 81001; 85025; 93005; 99284; A4216

== ENCOUNTER → 2025-03-19 | Outpatient (CLI) | payer BC, SELFPAY ==
--- NOTE | 2025-03-19 08:45 | US_ITS ---
PROCEDURE: BREAST LIMITED UNILATERAL 03/19/2025 REASON FOR EXAM: F, Age 34 y/o , RIGHT BREAST MASS Palpable mass right breast. Inconclusive mammogram. Evaluate. COMPARISON: Mammogram study dated 03/19/2025. TECHNIQUE: Procedure Code: USBRSTLIMIT Modality: US Procedure: BREAST LIMITED UNILATERAL FINDINGS: There is no ultrasound abnormality in the right breast to correlate to the palpable abnormality. The palpable abnormality is located in the lower outer quadrant, somewhat near the 6 o'clock position. No suspicious solid or cystic masses are seen in this location. This area appears to represent a ridge of dense tissue. US/Breast Limited Unilateral IMPRESSION: There is no ultrasound abnormality in the right breast to correlate to the palp able abnormality. The palpable abnormality is located in the lower outer quadrant, somewhat near the 6 o'clock position. No suspicious solid or cystic masses are seen in this location. This area appears to represent a ridge of dense tissue. BI-RADS 1: NEGATIVE RECOMMENDATION: The patient should return at the age of 38 for routine yearly s creening mammography. Reading Location: [id number]
--- NOTE | 2025-03-19 08:45 | US_ITS ---
PROCEDURE: BREAST LIMITED UNILATERAL 03/19/2025 REASON FOR EXAM: F, Age 34 y/o , RIGHT BREAST MASS Palpable mass right breast. Inconclusive mammogram. Evaluate. COMPARISON: Mammogram study dated 03/19/2025. TECHNIQUE: Procedure Code: [id number] Modality: US Procedure: BREAST LIMITED UNILATERAL FINDINGS: There is no ultrasound abnormality in the right breast to correlate to the palpable abnormality. The palpable abnormality is located in the lower outer quadrant, somewhat near the 6 o'clock position. No suspicious solid or cystic masses are seen in this location. This area appears to represent a ridge of dense tissue. US/Breast Limited Unilateral IMPRESSION: There is no ultrasound abnormality in the right breast to correlate to the palp able abnormality. The palpable abnormality is located in the lower outer quadrant, somewhat near the 6 o'clock position. No suspicious solid or cystic masses are seen in this location. This area appears to represent a ridge of dense tissue. BI-RADS 1: NEGATIVE RECOMMENDATION: The patient should return at the age of 38 for routine yearly s creening mammography. Reading Location: [id number]
--- NOTE | 2025-03-19 09:00 | BI_ITS ---
EXAM: DIAG MAMM W/CAD, BILAT N/A CLINICAL HISTORY: F, Age 34 y/o , RIGHT BREAST MASS TECHNIQUE: Procedure Code: [id number] Modality: MG Procedure: DIAG MAMM W/CAD, BILAT. COMPARISON: None. This is a baseline study. FINDINGS: TISSUE DENSITY: The breasts are extremely dense, which lowers the sensitivity of mammography. Bilateral Breast Mammographic Findings: There is a radiopaque marker placed over the new right breast palpable abnormality. This new palpable abnormality is located inferiorly within the breast. There is no mammographic abnormality to correlate. Further workup with ultrasound will be performed for further evaluation. There are no suspicious masses, suspicious cluster of microcalcifications, architectural distortion or secondary signs of malignancy identified in either breast. BI/DIAG MAMM W/CAD, BILAT IMPRESSION: There is a palpable abnormality in the inferior aspect of the right breast. Th ere is no mammographic abnormality to correlate. Further workup with ultrasound is indicated. OVERALL FINAL ASSESSMENT BI-RADS 0: INCOMPLETE - NEED ADDITIONAL IMAGING EVALUATION. RECOMMENDATION: Ultrasound Recommended Additional Recommendation none A letter with findings and recommendations will be mailed to the patient. Reading Location: [id number]
--- NOTE | 2025-03-19 09:00 | BI_ITS ---
EXAM: DIAG MAMM W/CAD, BILAT N/A CLINICAL HISTORY: F, Age 34 y/o , RIGHT BREAST MASS TECHNIQUE: Procedure Code: [id number] Modality: MG Procedure: DIAG MAMM W/CAD, BILAT. COMPARISON: None. This is a baseline study. FINDINGS: TISSUE DENSITY: The breasts are extremely dense, which lowers the sensitivity of mammography. Bilateral Breast Mammographic Findings: There is a radiopaque marker placed over the new right breast palpable abnormality. This new palpable abnormality is located inferiorly within the breast. There is no mammographic abnormality to correlate. Further workup with ultrasound will be performed for further evaluation. There are no suspicious masses, suspicious cluster of microcalcifications, architectural distortion or secondary signs of malignancy identified in either breast. BI/DIAG MAMM W/CAD, BILAT IMPRESSION: There is a palpable abnormality in the inferior aspect of the right breast. Th ere is no mammographic abnormality to correlate. Further workup with ultrasound is indicated. OVERALL FINAL ASSESSMENT BI-RADS 0: INCOMPLETE - NEED ADDITIONAL IMAGING EVALUATION. RECOMMENDATION: Ultrasound Recommended Additional Recommendation none A letter with findings and recommendations will be mailed to the patient. Reading Location: [id number]
== END | disposition home or self-care (01) ==
PROVIDERS: PCP Family Medicine; Referring Provider Nurse Practitioner Women's Health; Visit Provider Nurse Practitioner Women's Health
DX: R92.8 Other abnormal and inconclusive findings on diagnostic imaging of breast (principal)
CPT/HCPCS: 76642; 77062; 77066; G0279